=== PATIENT | male | born 1945 | race Two or more races ===

== ENCOUNTER 2024-03-15 09:21 | Inpatient (IN) | payer OTHER ==
[~2024-03-15] VITALS: Ht 190.5 cm; Wt 98.8 kg
[2024-03-15 09:45] VITALS: PULSE 115; O2SAT 96
[2024-03-15 10:07] LABS: Basophils # (auto) 0 10 ^3/uL (0-0.2); Basophils % (auto) 0.5 % (0.0-2.0); Eosinophils # (auto) 0.1 10 ^3/uL (0-0.8); Eosinophils % (auto) 0.7 % (0.0-7.0); Hematocrit 34.7 % (41.0-53.0); Hemoglobin 11.5 g/dL (13.5-17.5); Lymphocytes # (auto) 0.9 10 ^3/uL (0.4-5.4); Lymphocytes % (auto) 9.3 % (10.0-50.0); Mean Corpuscular Hemoglobin 33.1 pg (28.0-32.0); Mean Corpuscular Volume 100.3 fL (80.0-100.0); Monocytes # (auto) 0.6 10 ^3/uL (0-1.3); Monocytes % (auto) 6.7 % (0.0-12.0); Neutrophils # (auto) 7.7 10 ^3/uL (1.6-8.6); Neutrophils % (auto) 82.8 % (37.0-80.0); Red Blood Cells 3.46 10^6/uL (4.5-5.90); Red Cell Distribution Width 15.2 % (11.8-14.3); White Blood Cell 9.3 10^3/uL (4.4-10.8)
[2024-03-15 10:21] LABS: Chloride 109 mmol/L (98-107); Potassium 3.7 mmol/L (3.5-5.1); Sodium 140 mmol/L (136-145)
[2024-03-15 10:22] LABS: Anion Gap 8 (5-15); Calcium 9.8 mg/dL (8.7-10.4); Carbon Dioxide 23 mmol/L (20-30)
[2024-03-15 10:27] LABS: BUN/Creatinine Ratio 10.1 (10.0-20.0); Blood Urea Nitrogen 11 mg/dL (9-23); Glucose 127 mg/dL (74-106)
[2024-03-15] MEDS: ADENOSINE 6 MG/2 ML INJ IV ONE ×3 (12:57→13:02)
[2024-03-15] MEDS ORDERED: MORPHINE SULFATE INJ 2 MG/ml SYRG IV PRN (13:30)
[2024-03-15] MEDS ORDERED: MORPHINE SULFATE 4 MG/ML SYR/VIAL IV PRN (13:30)
[2024-03-15] MEDS ORDERED: NITROGLYCERIN 0.4 MG SL TAB SL PRN ×2 (13:30)
[2024-03-15] MEDS ORDERED: ONDANSETRON HCL 4 MG/2 ML VIAL IV PRN (13:30)
[2024-03-15] MEDS: AMIODARONE BOLUS KIT 100 ML IV ONE (13:30)
[2024-03-15] MEDS: AMIODARONE 450mg/250ml AE 250 ML IV SCH ×2 (13:45→21:00)
[2024-03-15 14:24] LABS: INR 1.08 (0.9-1.15); Prothrombin Time 11.4 sec (9.3-11.8)
[2024-03-15 14:30] VITALS: PULSE 111; RESP 18; O2SAT 94
[2024-03-15 14:43] LABS: Magnesium 1.8 mg/dL (1.6-2.6)
[2024-03-15 14:45] LABS: Phosphorus 2.9 mg/dL (2.4-5.1)
[2024-03-15] MEDS: ENOXAPARIN SOD 120 MG/0.8 ML SYRINGE SC SCH (18:12)
[2024-03-15 19:30] VITALS: PULSE 111; RESP 15; O2SAT 94
[2024-03-15] MEDS: ATORVASTATIN 20 MG TAB PO SCH (21:56)
[2024-03-15] MEDS: METOPROLOL TARTRATE 25 MG TAB PO SCH (21:57)
[2024-03-16 04:09] LABS: Basophils # (auto) 0 10 ^3/uL (0-0.2); Basophils % (auto) 0.4 % (0.0-2.0); Eosinophils # (auto) 0.1 10 ^3/uL (0-0.8); Eosinophils % (auto) 0.7 % (0.0-7.0); Hematocrit 34.8 % (41.0-53.0); Hemoglobin 11.7 g/dL (13.5-17.5); Lymphocytes # (auto) 1.8 10 ^3/uL (0.4-5.4); Lymphocytes % (auto) 18.2 % (10.0-50.0); Mean Corpuscular Hemoglobin 33.5 pg (28.0-32.0); Mean Corpuscular Hgb Conc. 33.7 g/dL (32.0-36.0); Mean Corpuscular Volume 99.2 fL (80.0-100.0); Monocytes % (auto) 10.3 % (0.0-12.0); Neutrophils # (auto) 6.8 10 ^3/uL (1.6-8.6); Neutrophils % (auto) 70.4 % (37.0-80.0); Red Blood Cells 3.51 10^6/uL (4.5-5.90); Red Cell Distribution Width 14.7 % (11.8-14.3); White Blood Cell 9.6 10^3/uL (4.4-10.8)
[2024-03-16 04:24] LABS: Alanine Aminotransferase 73 U/L (7-40); Albumin 4.2 g/dL (3.2-4.8); Alkaline Phosphatase 73 U/L (46-116); Anion Gap 9 (5-15); Aspartate Aminotransferase 34 U/L (13-40); BUN/Creatinine Ratio 11.1 (10.0-20.0); Blood Urea Nitrogen 12 mg/dL (9-23); Calcium 9.9 mg/dL (8.7-10.4); Carbon Dioxide 23 mmol/L (20-30); Chloride 106 mmol/L (98-107); Glucose 127 mg/dL (74-106); LDL Cholesterol 72 mg/dL (< 100); Potassium 3.6 mmol/L (3.5-5.1); Sodium 138 mmol/L (136-145); Triglycerides 85 mg/dL (< 150)
[2024-03-16 04:25] LABS: Bilirubin, Total 0.9 mg/dL (0.2-1.0); Cholesterol 130 mg/dL (< 200); HDL Cholesterol 48 mg/dL (40-59); Total Protein 7.2 g/dL (5.7-8.2)
[2024-03-16 07:20] VITALS: PULSE 110; RESP 16; O2SAT 97
[2024-03-16] MEDS: DOCUSATE SOD 100 MG CAP PO SCH (10:00)
[2024-03-16] MEDS: ASPirin 81 mg TAB PO SCH (10:13)
[2024-03-16] MEDS: DIPHENOXYLATE W/ATROPINE 2.5 MG TAB PO PRN (12:55)
[2024-03-16] MEDS: cefTRIAXone 1GM/50ML D5W 50 ML IV SCH (13:06)
[2024-03-16] MEDS: metroNIDAZOLE 500MG/100ML 100 ML IV SCH (15:02)
[2024-03-16 18:00] VITALS: BP 130/82; PULSE 109; RESP 16; TEMP 97.3; O2SAT 99
[2024-03-16 18:28] VITALS: PULSE 109; RESP 16; O2SAT 99
[2024-03-16] MEDS ORDERED: ALEN70TA74 PO (18:57)
[2024-03-16] MEDS ORDERED: CLOT-32 TOP (18:57)
[2024-03-16] MEDS ORDERED: SIMV40TA18 PO (18:57)
[2024-03-16] MEDS ORDERED: TAMS0.4C36 PO (18:57)
[2024-03-16] MEDS ORDERED: BENA40TA71 PO (18:57)
[2024-03-16] MEDS ORDERED: DICL1GEL73 TOP (18:57)
[2024-03-16] MEDS ORDERED: TRAM50TA2 PO (18:57)
[2024-03-16] MEDS ORDERED: GABA-1251 PO (18:57)
[2024-03-16] MEDS ORDERED: OXYB5TAB14 PO (18:57)
[2024-03-16] MEDS ORDERED: OMEP1CAP70 PO (18:57)
[2024-03-16] MEDS ORDERED: CARV6.2551 PO (18:57)
[2024-03-16 20:00] VITALS: PULSE 109
[2024-03-16 22:00] VITALS: BP 121/77; PULSE 109; RESP 18; TEMP 98.2; O2SAT 99
[2024-03-16] MEDS: SACUBITRIL-VALSARTAN 24mg/26mg TAB PO SCH (22:18)
[2024-03-17] VITALS (8 sets, daily range): BP systolic 111–153; BP diastolic 73–94; PULSE 74–113; RESP 18–94; TEMP 97.7–98.7; O2SAT 95–98
[2024-03-17 10:51] LABS: Chloride 105 mmol/L (98-107); Potassium 3.8 mmol/L (3.5-5.1); Sodium 139 mmol/L (136-145)
[2024-03-17 10:52] LABS: Anion Gap 8 (5-15); Basophils # (auto) 0 10 ^3/uL (0-0.2); Basophils % (auto) 0.5 % (0.0-2.0); Carbon Dioxide 26 mmol/L (20-30); Eosinophils # (auto) 0.1 10 ^3/uL (0-0.8); Eosinophils % (auto) 0.6 % (0.0-7.0); Hematocrit 34.5 % (41.0-53.0); Hemoglobin 11.8 g/dL (13.5-17.5); Lymphocytes # (auto) 1.2 10 ^3/uL (0.4-5.4); Lymphocytes % (auto) 13.5 % (10.0-50.0); Mean Corpuscular Hemoglobin 33.4 pg (28.0-32.0); Mean Corpuscular Hgb Conc. 34.2 g/dL (32.0-36.0); Mean Corpuscular Volume 97.7 fL (80.0-100.0); Monocytes # (auto) 0.6 10 ^3/uL (0-1.3); Monocytes % (auto) 6.9 % (0.0-12.0); Neutrophils # (auto) 7.2 10 ^3/uL (1.6-8.6); Neutrophils % (auto) 78.5 % (37.0-80.0); Red Blood Cells 3.53 10^6/uL (4.5-5.90); Red Cell Distribution Width 14.6 % (11.8-14.3); White Blood Cell 9.2 10^3/uL (4.4-10.8)
[2024-03-17 10:53] LABS: Calcium 9.9 mg/dL (8.7-10.4)
[2024-03-17 10:57] LABS: BUN/Creatinine Ratio 14.9 (10.0-20.0); Blood Urea Nitrogen 14 mg/dL (9-23); Glucose 104 mg/dL (74-106)
[2024-03-17 10:58] LABS: Magnesium 1.9 mg/dL (1.6-2.6)
[2024-03-17 11:39] LABS: Urine Bacteria None Seen /hpf (None Seen)
[2024-03-17 12:12] LABS: Urine Blood 3+ /uL (Negative); Urine Clarity Ex.Turbid (Clear); Urine Color Red (Yellow); Urine Protein, UAD 2+ (Negative); Urine Specific Gravity 1.019 (1.001-1.035); Urine Urobilinogen Normal (Negative); Urine WBC 191 /hpf (0 - 3); Urine pH 5.5 (5.0-9.0)
[2024-03-17] MEDS: METOPROLOL TARTRATE 25 MG TAB PO ONE (14:47)
[2024-03-17] MEDS: FUROSEMIDE 20 MG TAB PO SCH (14:48)
[2024-03-17] MEDS: METOPROLOL TARTRATE 50 MG TAB PO SCH (21:50)
[2024-03-18] VITALS (9 sets, daily range): BP systolic 106–124; BP diastolic 69–84; PULSE 109–115; RESP 16–20; TEMP 97.4–98.3; O2SAT 96–99
[2024-03-18 08:06] LABS: PSA Free 0.06 ng/mL; Prostate Specific Antigen 0.8 ng/mL (0.0-4.0)
[2024-03-18] MEDS: SPIRONOLACTONE 25 MG TAB PO SCH (08:58)
[2024-03-18] MEDS ORDERED: IVABRADINE 5 MG TAB PO SCH (11:15)
[2024-03-18] MEDS: AMIODARONE HCL 200 MG TAB PO SCH (13:18)
[2024-03-18 16:07] LABS: Chloride 105 mmol/L (98-107); Potassium 3.2 mmol/L (3.5-5.1); Sodium 140 mmol/L (136-145)
[2024-03-18 16:08] LABS: Anion Gap 7 (5-15); Carbon Dioxide 28 mmol/L (20-30)
[2024-03-18 16:09] LABS: Calcium 9.5 mg/dL (8.7-10.4)
[2024-03-18 16:13] LABS: Glucose 125 mg/dL (74-106)
[2024-03-18 16:14] LABS: Magnesium 1.6 mg/dL (1.6-2.6)
[2024-03-18 17:05] LABS: Blood Urea Nitrogen 16 mg/dL (9-23)
[2024-03-18] MEDS: POTASSIUM CHL 20 Meq TABLET PO ONE (18:21)
[2024-03-18] MEDS: MAGNESIUM SULFATE 1GM/100ML 100 ML IV SCH (18:21)
[2024-03-19] MEDS: ACETAMINOPHEN 325 MG TAB PO PRN (00:18)
[2024-03-19] MEDS: GABAPENTIN 100 MG CAP PO ONE (00:18)
[2024-03-19 01:00] VITALS: BP 107/78; PULSE 107; RESP 18; TEMP 97.7; O2SAT 100
[2024-03-19 03:54] LABS: Basophils # (auto) 0 10 ^3/uL (0-0.2); Basophils % (auto) 0.6 % (0.0-2.0); Eosinophils # (auto) 0.2 10 ^3/uL (0-0.8); Eosinophils % (auto) 2.4 % (0.0-7.0); Hematocrit 34.2 % (41.0-53.0); Hemoglobin 11.7 g/dL (13.5-17.5); Lymphocytes # (auto) 2.1 10 ^3/uL (0.4-5.4); Lymphocytes % (auto) 31.3 % (10.0-50.0); Mean Corpuscular Hemoglobin 33.4 pg (28.0-32.0); Mean Corpuscular Hgb Conc. 34.1 g/dL (32.0-36.0); Mean Corpuscular Volume 97.9 fL (80.0-100.0); Monocytes # (auto) 0.7 10 ^3/uL (0-1.3); Neutrophils # (auto) 3.7 10 ^3/uL (1.6-8.6); Neutrophils % (auto) 55.7 % (37.0-80.0); Nucleated Red Blood Cells % 0.1 %; Red Blood Cells 3.49 10^6/uL (4.5-5.90); Red Cell Distribution Width 14.6 % (11.8-14.3); White Blood Cell 6.7 10^3/uL (4.4-10.8)
[2024-03-19 04:02] LABS: Chloride 107 mmol/L (98-107); Potassium 3.8 mmol/L (3.5-5.1); Sodium 138 mmol/L (136-145)
[2024-03-19 04:03] LABS: Anion Gap 4 (5-15); Calcium 9.6 mg/dL (8.7-10.4); Carbon Dioxide 27 mmol/L (20-30)
[2024-03-19 04:08] LABS: BUN/Creatinine Ratio 14.4 (10.0-20.0); Blood Urea Nitrogen 14 mg/dL (9-23); Glucose 97 mg/dL (74-106)
[2024-03-19 05:00] VITALS: BP 123/87; PULSE 106; RESP 18; TEMP 97.6; O2SAT 98
[2024-03-19 08:05] VITALS: PULSE 110; RESP 18; O2SAT 92
[2024-03-19 09:00] VITALS: BP 126/83; PULSE 110; RESP 20; TEMP 97.6; O2SAT 99
[2024-03-19] MEDS: POTASSIUM CHL 20 Meq TABLET PO ONE (10:12)
[2024-03-19] MEDS: MAGNESIUM OXIDE 400 MG TAB PO SCH (10:13)
[2024-03-19] MEDS ORDERED: APIX2.5T PO (11:47)
[2024-03-19] MEDS ORDERED: SACU1TAB PO (11:47)
[2024-03-19] MEDS ORDERED: AMIO200T13 PO (11:47)
[2024-03-19] MEDS ORDERED: MET50T PO (11:47)
[2024-03-19] MEDS ORDERED: MAGN400T40 PO (11:47)
[2024-03-19] MEDS ORDERED: SPIR25TA PO (11:47)
[2024-03-19 13:29] VITALS: BP 126/83; PULSE 110; TEMP 36.4
[2024-03-19] MEDS: APIXABAN 2.5 MG TAB PO SCH (13:59)
== END 2024-03-19 14:30 | disposition home or self-care (01) | DRG 280 ==
LOC: EDBD 09:21 → ER 09:21 → TELE 13:38 → TELE-CENTR 03-16 17:53
PROVIDERS: ADMIT Nurse Practitioner Family; ATTEND Nurse Practitioner Acute Care
DX: I11.0 Hypertensive heart disease with heart failure (principal); I50.23 Acute on chronic systolic (congestive) heart failure; I21.A1 Myocardial infarction type 2; I47.10 Supraventricular tachycardia, unspecified; I48.92 Unspecified atrial flutter; I42.0 Dilated cardiomyopathy; E78.5 Hyperlipidemia, unspecified; I34.0 Nonrheumatic mitral (valve) insufficiency; E66.9 Obesity, unspecified; N40.0 Benign prostatic hyperplasia without lower urinary tract symptoms; I43 Cardiomyopathy in diseases classified elsewhere; G62.9 Polyneuropathy, unspecified; I48.0 Paroxysmal atrial fibrillation; Z85.038 Personal history of other malignant neoplasm of large intestine; Z68.27 Body mass index [BMI] 27.0-27.9, adult; Z79.01 Long term (current) use of anticoagulants
CPT/HCPCS: 36415; 71045; 74018; 80048; 80053; 80061; 81001; 82550; 82607; 83735; 83880; 84100; 84154; 84484; 85025; 85379; 85610; 87045; 87427; 87493; 93005; 93306; 93970; 96374; 97110; 97116; 97163; 97530; G0378; J0153; J3490

== ENCOUNTER → 2024-05-25 | Outpatient (CLI) | payer OTHER ==
[~2024-05-25] MED LIST: ALEN70TA74 PO; AMIO200T13 PO; APIX2.5T PO; CLOT-32 TOP; DICL1GEL73 TOP; GABA-1251 PO; MAGN400T40 PO; MET50T PO; OMEP1CAP70 PO; OXYB5TAB14 PO; SACU1TAB PO; SIMV40TA18 PO; SPIR25TA PO; TAMS0.4C39 PO; TRAM50TA2 PO
[2024-05-25 10:06] LABS: Basophils # (auto) 0 10 ^3/uL (0-0.2); Basophils % (auto) 0.5 % (0.0-2.0); Eosinophils # (auto) 0.2 10 ^3/uL (0-0.8); Eosinophils % (auto) 3.5 % (0.0-7.0); Hematocrit 36.2 % (41.0-53.0); Hemoglobin 12.1 g/dL (13.5-17.5); Lymphocytes # (auto) 1.3 10 ^3/uL (0.4-5.4); Mean Corpuscular Hemoglobin 32.8 pg (28.0-32.0); Mean Corpuscular Hgb Conc. 33.5 g/dL (32.0-36.0); Monocytes # (auto) 0.5 10 ^3/uL (0-1.3); Neutrophils # (auto) 3.7 10 ^3/uL (1.6-8.6); Nucleated Red Blood Cells % 0.1 %; Platelet Count (auto) 229 10^3/uL (140-450); Red Blood Cells 3.69 10^6/uL (4.5-5.90); Red Cell Distribution Width 13.9 % (11.8-14.3); White Blood Cell 5.8 10^3/uL (4.4-10.8)
[2024-05-25 10:07] LABS: Urine Bacteria FEW /hpf (None Seen); Urine Blood 2+ /uL (Negative); Urine Clarity Clear (Clear); Urine Color Light-Yellow (Yellow); Urine Protein, UAD 1+ (Negative); Urine Specific Gravity 1.018 (1.001-1.035); Urine Urobilinogen Normal (Negative); Urine WBC 110 /hpf (0 - 3); Urine pH 5.5 (5.0-9.0)
[2024-05-25 10:49] LABS: Prostate Specific Antigen 0.2 ng/mL (0.0-4.0)
[2024-05-25 10:51] LABS: Alanine Aminotransferase 23 U/L (7-40); Alkaline Phosphatase 61 U/L (46-116); Anion Gap 5 (5-15); Aspartate Aminotransferase 17 U/L (13-40); BUN/Creatinine Ratio 18.8 (10.0-20.0); Blood Urea Nitrogen 24 mg/dL (9-23); Calcium 10.3 mg/dL (8.7-10.4); Carbon Dioxide 29 mmol/L (20-31); Chloride 105 mmol/L (98-107); Glucose 101 mg/dL (74-106); LDL Cholesterol 67 mg/dL (< 100); Potassium 4.7 mmol/L (3.5-5.1); Sodium 139 mmol/L (136-145); Triglycerides 53 mg/dL (< 150)
[2024-05-25 10:52] LABS: Albumin 4.2 g/dL (3.2-4.8); Bilirubin, Total 0.4 mg/dL (0.2-1.0); Cholesterol 117 mg/dL (< 200); HDL Cholesterol 41 mg/dL (40-59); Total Protein 7.2 g/dL (5.7-8.2)
[2024-05-25 10:53] LABS: Free T4 (Free Thyroxine) 0.96 ng/dL (0.89-1.76)
[2024-05-25 10:54] LABS: Creatinine, Urine 99.89 mg/dL (30.0-125.0)
== END | disposition home or self-care (01) ==
LOC: LAB 09:32
PROVIDERS: ATTEND Internal Medicine
DX: Z00.01 Encounter for general adult medical examination with abnormal findings (principal); I13.0 Hypertensive heart and chronic kidney disease with heart failure and stage 1 through stage 4 chronic kidney disease, or unspecified chronic kidney disease; N18.9 Chronic kidney disease, unspecified; I50.9 Heart failure, unspecified; E78.5 Hyperlipidemia, unspecified; N40.1 Benign prostatic hyperplasia with lower urinary tract symptoms; C61 Malignant neoplasm of prostate
CPT/HCPCS: 36415; 80053; 80061; 81001; 82043; 82306; 82570; 82607; 83036; 84153; 84439; 84443; 85025

== ENCOUNTER → 2024-07-08 | Outpatient (CLI) | payer OTHER ==
[~2024-07-08] VITALS: Ht 190.5 cm; Wt 110.7 kg
[2024-07-08] MEDS: ADENOSINE 93 MG in GIVE UN-DILUTED 0 ML IV ONE (08:50)
--- NOTE | 2024-07-08 11:58 | DVHSR ---
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 Versus diaphragmatic attenuation. Severely reduced left ventricular systolic function 28%. 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 Time of rest injection: 0730 Time of rest imagin Pharmacologic Stress Pharmacologic stress test was performed by injecting Adenosine mg IV push followed by the intravenou s injection of 36.7 mCi of Tc-99m Sestamibi. Time of stress injection: 0853 Time of stress imagin Administration Route: IV Administration Site: Left AC Gated Stress SPECT was performed 60 minutes after stress injection. The images were gated to evaluate regional wall motion and calculate left ventricular ejection fracti on. Stress only was performed in the Supine position. Perfusion There is a large area of severely reduced uptake in the basal and mid segment of the inferior wall wh ich is seen on the stress images as well as the resting images. This area and is most consistent wit h myocardial scar. Nuclear Conclusion ECG Findings: negative for ischemia Clinical Findings: negative for ischemia Nuclear Findings: negative for ischemia Exercise Capacity: not assessed Left Ventricular Function: abnormal Risk Study: low Resting images shows large area of severely reduced uptake in the basal to mid segment of the inferio r wall which is seen both in stress and resting images likely in keeping with old myocardial infarcti on. Versus diaphragmatic attenuation. Severely reduced left ventricular systolic function 28%. Impression: Old inferior scar, negative stress for ischemia, severely reduced left ventricular systo lic function 28%
== END | disposition home or self-care (01) ==
LOC: XYW 06:49
PROVIDERS: ATTEND Student in an Organized Health Care Education/Training Program
DX: I48.0 Paroxysmal atrial fibrillation (principal)
CPT/HCPCS: 78452; 93017; A9500; J0153

== ENCOUNTER → 2024-07-10 | Outpatient (CLI) | payer OTHER ==
[2024-07-10 11:26] LABS: Chloride 107 mmol/L (98-107); Potassium 4.5 mmol/L (3.5-5.1); Sodium 139 mmol/L (136-145)
[2024-07-10 11:27] LABS: Anion Gap 4 (5-15); Calcium 10.6 mg/dL (8.7-10.4); Carbon Dioxide 28 mmol/L (20-31)
[2024-07-10 11:31] LABS: % Iron Saturation 26.8 % (20-55)
[2024-07-10 11:32] LABS: BUN/Creatinine Ratio 17.4 (10.0-20.0); Blood Urea Nitrogen 19 mg/dL (9-23); Glucose 99 mg/dL (74-106)
[2024-07-10 11:35] LABS: Ferritin 200.3 ng/mL (22-322)
[2024-07-10 11:58] LABS: Folate (Folic Acid) 41.25 ng/mL (>5.38)
== END | disposition home or self-care (01) ==
LOC: LAB 10:35
PROVIDERS: ATTEND Internal Medicine
DX: C61 Malignant neoplasm of prostate (principal); I13.0 Hypertensive heart and chronic kidney disease with heart failure and stage 1 through stage 4 chronic kidney disease, or unspecified chronic kidney disease; N18.2 Chronic kidney disease, stage 2 (mild); I50.9 Heart failure, unspecified; D63.1 Anemia in chronic kidney disease; E78.5 Hyperlipidemia, unspecified
CPT/HCPCS: 36415; 80048; 82728; 82746; 83540; 83550

== ENCOUNTER → 2024-07-28 | Outpatient (CLI) | payer OTHER ==
[2024-07-28 10:22] LABS: Basophils # (auto) 0 10 ^3/uL (0-0.2); Basophils % (auto) 0.8 % (0.0-2.0); Eosinophils # (auto) 0.3 10 ^3/uL (0-0.8); Eosinophils % (auto) 4.9 % (0.0-7.0); Hematocrit 34.7 % (41.0-53.0); Hemoglobin 11.7 g/dL (13.5-17.5); Lymphocytes # (auto) 1.3 10 ^3/uL (0.4-5.4); Lymphocytes % (auto) 25.1 % (10.0-50.0); Mean Corpuscular Hemoglobin 33.3 pg (28.0-32.0); Mean Corpuscular Hgb Conc. 33.6 g/dL (32.0-36.0); Mean Corpuscular Volume 99.1 fL (80.0-100.0); Monocytes # (auto) 0.5 10 ^3/uL (0-1.3); Monocytes % (auto) 9.4 % (0.0-12.0); Neutrophils # (auto) 3.2 10 ^3/uL (1.6-8.6); Neutrophils % (auto) 59.8 % (37.0-80.0); Nucleated Red Blood Cells % 0.1 %; Platelet Count (auto) 236 10^3/uL (140-450); White Blood Cell 5.3 10^3/uL (4.4-10.8)
[2024-07-28 10:41] LABS: % Iron Saturation 20.5 % (20-55); Alanine Aminotransferase 16 U/L (7-40); Albumin 4.1 g/dL (3.2-4.8); Alkaline Phosphatase 61 U/L (46-116); Anion Gap 5 (5-15); Aspartate Aminotransferase 17 U/L (13-40); BUN/Creatinine Ratio 21.4 (10.0-20.0); Bilirubin, Total 0.6 mg/dL (0.2-1.0); Blood Urea Nitrogen 25 mg/dL (9-23); Calcium 10.7 mg/dL (8.7-10.4); Carbon Dioxide 29 mmol/L (20-31); Chloride 105 mmol/L (98-107); Glucose 96 mg/dL (74-106); Potassium 4.5 mmol/L (3.5-5.1); Sodium 139 mmol/L (136-145); Total Protein 7.4 g/dL (5.7-8.2)
[2024-07-28 10:45] LABS: Carcinoembryonic Antigen 0.71 ng/mL (<=5.0)
[2024-07-28 10:46] LABS: Ferritin 206.9 ng/mL (22-322)
[2024-07-28 10:56] LABS: Wright Stain Ready for Review
== END | disposition home or self-care (01) ==
LOC: LAB 09:31
PROVIDERS: ATTEND Internal Medicine
DX: D64.9 Anemia, unspecified (principal)
CPT/HCPCS: 36415; 80053; 82270; 82378; 82728; 83540; 83550; 83615; 85025; 85045; 86880

== ENCOUNTER → 2024-07-31 | Outpatient (CLI) | payer OTHER ==
--- NOTE | 2024-08-03 10:48 | DVHSR ---
APPROVED REPORT Procedure The above named patient was injected with 26 mCi of Tc99m tagged red blood cells. Gated imaging was then performed in left anterior oblique projections. Impression Abnormal MUGA study. Calculated left ventricular ejection fraction is 46 %. Mildly decreased. left ventricular systolic function. Abnormal wall motion. Mildly reduced left ventricular systolic function at 46% by MUGA scan.
== END | disposition home or self-care (01) ==
LOC: XYW 09:12
PROVIDERS: ATTEND Student in an Organized Health Care Education/Training Program
DX: I50.9 Heart failure, unspecified (principal)
CPT/HCPCS: 78472; A9560

== ENCOUNTER → 2024-10-19 | Outpatient (CLI) | payer OTHER ==
[2024-10-19 10:20] LABS: Basophils # (auto) 0 10 ^3/uL (0-0.2); Basophils % (auto) 0.4 % (0.0-2.0); Eosinophils # (auto) 0.2 10 ^3/uL (0-0.8); Hematocrit 35.1 % (41.0-53.0); Hemoglobin 11.8 g/dL (13.5-17.5); Lymphocytes % (auto) 15.3 % (10.0-50.0); Mean Corpuscular Hemoglobin 32.6 pg (28.0-32.0); Mean Corpuscular Hgb Conc. 33.6 g/dL (32.0-36.0); Monocytes # (auto) 0.8 10 ^3/uL (0-1.3); Monocytes % (auto) 12.2 % (0.0-12.0); Neutrophils # (auto) 4.4 10 ^3/uL (1.6-8.6); Neutrophils % (auto) 69.1 % (37.0-80.0); Platelet Count (auto) 247 10^3/uL (140-450); Red Blood Cells 3.62 10^6/uL (4.5-5.90); Red Cell Distribution Width 13.7 % (11.8-14.3); White Blood Cell 6.4 10^3/uL (4.4-10.8)
[2024-10-19 10:44] LABS: Urine Bacteria MANY /hpf (None Seen); Urine Blood 2+ /uL (Negative); Urine Clarity Turbid (Clear); Urine Color Light-Yellow (Yellow); Urine Mucus FEW (None Seen); Urine Protein, UAD Negative (Negative); Urine Specific Gravity 1.019 (1.001-1.035); Urine Squamous Epithelial Cell FEW /hpf (<5); Urine Urobilinogen Normal (Negative); Urine WBC 97 /HPF (0-3); Urine pH 5.5 (5.0-9.0)
[2024-10-19 11:02] LABS: Alanine Aminotransferase 22 U/L (7-40); Alkaline Phosphatase 63 U/L (46-116); Carbon Dioxide 28 mmol/L (20-31); Chloride 101 mmol/L (98-107)
[2024-10-19 11:03] LABS: Anion Gap 7 (5-15); Potassium 4.5 mmol/L (3.5-5.1); Sodium 136 mmol/L (136-145)
[2024-10-19 11:04] LABS: Albumin 4.3 g/dL (3.2-4.8); BUN/Creatinine Ratio 19.5 (10.0-20.0); LDL Cholesterol 73 mg/dL (< 100); Total Protein 7.5 g/dL (5.7-8.2); Triglycerides 77 mg/dL (< 150)
[2024-10-19 11:05] LABS: Aspartate Aminotransferase 23 U/L (13-40); Cholesterol 131 mg/dL (< 200)
[2024-10-19 11:06] LABS: Bilirubin, Total 0.5 mg/dL (0.2-1.0); HDL Cholesterol 44 mg/dL (40-59)
[2024-10-19 11:09] LABS: Creatinine, Urine 102.49 mg/dL (30.0-125.0)
[2024-10-19 11:11] LABS: Blood Urea Nitrogen 24 mg/dL (9-23); Calcium 10.4 mg/dL (8.7-10.4); Glucose 107 mg/dL (74-106)
== END | disposition home or self-care (01) ==
LOC: LAB 09:45
PROVIDERS: ATTEND Internal Medicine
DX: C61 Malignant neoplasm of prostate (principal); I13.0 Hypertensive heart and chronic kidney disease with heart failure and stage 1 through stage 4 chronic kidney disease, or unspecified chronic kidney disease; N18.31 Chronic kidney disease, stage 3a; I50.9 Heart failure, unspecified; I48.0 Paroxysmal atrial fibrillation; E78.5 Hyperlipidemia, unspecified; R80.8 Other proteinuria; Z00.01 Encounter for general adult medical examination with abnormal findings
CPT/HCPCS: 36415; 80053; 80061; 81001; 82043; 82570; 83036; 84153; 84439; 84443; 85025

== ENCOUNTER → 2024-12-19 | Day surgery (SDC) | payer OTHER ==
[2024-12-17 09:32] LABS: Basophils # (auto) 0 10 ^3/uL (0-0.2); Basophils % (auto) 0.6 % (0.0-2.0); Eosinophils # (auto) 0.1 10 ^3/uL (0-0.8); Eosinophils % (auto) 2.2 % (0.0-7.0); Hematocrit 34.3 % (41.0-53.0); Hemoglobin 11.5 g/dL (13.5-17.5); Lymphocytes # (auto) 1.4 10 ^3/uL (0.4-5.4); Lymphocytes % (auto) 23.9 % (10.0-50.0); Mean Corpuscular Hemoglobin 32.7 pg (28.0-32.0); Mean Corpuscular Hgb Conc. 33.5 g/dL (32.0-36.0); Mean Corpuscular Volume 97.5 fL (80.0-100.0); Monocytes # (auto) 0.6 10 ^3/uL (0-1.3); Neutrophils # (auto) 3.8 10 ^3/uL (1.6-8.6); Neutrophils % (auto) 63.3 % (37.0-80.0); Platelet Count (auto) 253 10^3/uL (140-450); Red Blood Cells 3.52 10^6/uL (4.5-5.90); Red Cell Distribution Width 13.7 % (11.8-14.3)
[2024-12-17 09:53] LABS: INR 1.02 (0.9-1.15); Partial Thromboplastin Time 28.3 SEC (24.5-34.5); Prothrombin Time 10.8 sec (9.3-11.8)
[2024-12-17 10:00] LABS: Alanine Aminotransferase 24 U/L (7-40); Albumin 4.3 g/dL (3.2-4.8); Alkaline Phosphatase 64 U/L (46-116); Anion Gap 4 (5-15); Aspartate Aminotransferase 21 U/L (13-40); BUN/Creatinine Ratio 26.3 (10.0-20.0); Bilirubin, Total 0.5 mg/dL (0.2-1.0); Blood Urea Nitrogen 30 mg/dL (9-23); Calcium 10.4 mg/dL (8.7-10.4); Carbon Dioxide 29 mmol/L (20-31); Chloride 106 mmol/L (98-107); Glucose 103 mg/dL (74-106); Potassium 4.9 mmol/L (3.5-5.1); Sodium 139 mmol/L (136-145); Total Protein 7.4 g/dL (5.7-8.2)
[~2024-12-19] VITALS: Ht 190.5 cm; Wt 112.5 kg
[~2024-12-19] MED LIST changes: -AMIO200T13 PO; +CHOL62.52 PO; +CYAN-37 PO; +GABA-1250 PO; +MIDAZOLAM HCL 2MG/2ML 2ml VIAL (1mg/ml) ONE
[2024-12-19 09:15] VITALS: TEMP 98.4
[2024-12-19] MEDS: fentaNYL CITRATE 100 MCG/2 ML VL ONE (10:52)
[2024-12-19] MEDS: MIDAZOLAM HCL 2MG/2ML 2ml VIAL (1mg/ml) ONE (10:52)
[2024-12-19 11:23] VITALS: PULSE 60; RESP 14; O2SAT 97
--- NOTE | 2024-12-19 11:23 | DVHNC2 ---
Procedure - PROCEDURE DATE: DECEMBER 19, 2024 PROCEDURE PERFORMED BY: Kevin Paris MD REFERRING PROVIDER: Dr Mitchell PROCEDURE PERFORMED: 1. COLONOSCOPY WITH MODERATE SEDATION 2. COLONOSCOPY WITH COLD BIOPSY POLYPECTOMY 3. COLONOSCOPY WITH COLD SNARE POLYPECTOMY PRE-PROCEDURE DIAGNOSIS: 1. COLON CANCER SURVEILLANCE POSTPROCEDURE DIAGNOSIS: 1.5 COLON POLYPS IN TRANSVERSE COLON AND ASCENDING COLON 2. 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 MEDICATIONS USED: 4mg of Versed IV and 75mcg of fentanyl IV were given in inc remental doses DETAILS OF THE PROCEDURE: Informed consent was obtained after risks, benefits, and alternatives, were discussed at length with the patient. The patient gave consent to the procedure as well as some medication used for sedation. The patient was placed in the left lateral decubitus position, and a digital rectal exam was performed. The digital rectal exam showed internal hemorrhoids An Olympus variable torsion adult colonoscope was inserted into the rectum and i ndependence to the cecum. The cecum was identified by the ileocecal valve appendiceal orifice. The scope was then withdrawn. [place] bowel prep score of 5 was noted. There was stool throughout the colon and small lesions could have been missed. The patient had four ascending colon polyps were completely removed with cold biopsy forceps and snare polypectomy. They measured between 2 and 5 mm. there was another transverse colon polyp removed with biopsy forceps. In the rectum the patient had narrowing and I was not able to retroflex. Just proximal to the dentate line there was a lesion not sure if it was hemorrhoids or a polyp or other. It was friable and was oozing just with irritation of the scope. No biopsies were taken. The scope was then withdrawn. In the endoscope was inserted just to evaluate this area. Pictures were taken. No biopsies were taken. The scope was then withdrawn and the procedure completed. The patient tolerated the procedure well. START TIME: 1055 CECUM TIME: 1103 END TIME: 1118 IMPRESSION: 1. Five colon polyps removed in the ascending colon and transverse colon 2. Friable lesion just proximal to the dentate line. Not sure if it is related to hemorrhoids or if it is a polypoid lesion or other RECOMMENDATION: 1. We will review the patient's history for better understanding of what the rectal lesion could possibly be 2. Patient will need a surgical referral for evaluation 3. Follow up with pathology 4. We will discuss findings with the patient's 5. Patient may need repeat colonoscopy is indicated 6. Restart Eliquis in 3 days I WOULD LIKE TO THANK DR MITCHELL FOR THIS REFERRAL KEVIN PARIS MD December 19, 2024 11:23
[2024-12-19 11:45] VITALS: BP 120/63; PULSE 58; RESP 12; O2SAT 97
== END | disposition home or self-care (01) ==
LOC: GI 09:00
PROVIDERS: ATTEND Specialist
DX: Z12.11 Encounter for screening for malignant neoplasm of colon (principal); D12.3 Benign neoplasm of transverse colon; D12.2 Benign neoplasm of ascending colon; K64.8 Other hemorrhoids; K21.9 Gastro-esophageal reflux disease without esophagitis; E78.00 Pure hypercholesterolemia, unspecified; I11.0 Hypertensive heart disease with heart failure; I50.9 Heart failure, unspecified; G62.9 Polyneuropathy, unspecified; Z98.890 Other specified postprocedural states; Z79.899 Other long term (current) drug therapy; Z87.891 Personal history of nicotine dependence; Z93.3 Colostomy status; Z85.46 Personal history of malignant neoplasm of prostate; Z83.3 Family history of diabetes mellitus
CPT/HCPCS: 36415; 45380; 45385; 80053; 85025; 85610; 85730; 88305; J2250; J3010; 99152; 99153

== ENCOUNTER 2025-01-19 13:50 | Emergency (ER) | payer OTHER ==
[~2025-01-19] VITALS: Ht 190.5 cm; Wt 106.0 kg
[~2025-01-19 13:50] MED LIST changes: -MIDAZOLAM HCL 2MG/2ML 2ml VIAL (1mg/ml) ONE
--- NOTE | 2025-01-19 14:04 | ECG ---
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
--- NOTE | 2025-01-19 14:20 | ED.PDOC ---
History of Present Illness HPI Comments 80 year old male presents to the ED with a chief complaint of dizziness onset 1 week. Patient states has been experiencing dizziness that worsens with walking as well as palpitations. Patient is a poor historian, states he is on Eliquis but is unsure as to why. PMHx HLD, HTN, colon cancer. Denies chest pain, shortness of breath, headache, nausea, vomiting, diarrhea, abdominal pain, dysuria, hematuria, hematemesis, fever, chills. No other symptoms or modifying factors present at this time. Chief Complaint: Dizziness Time Seen by MD: 14:00 Reviewed Notes: Medications, Allergies Allergies: Coded Allergies: NO KNOWN ALLERGIES (Unverified , 03/15/24) Home Meds Active Scripts Magnesium Oxide (MAGNESIUM OXIDE) 400 Mg Tab, 1 TAB PO DAILY for 30 Days, #30 TAB 3 Refills Prov:GABRIELA BEY NP 03/19/24 Spironolactone (Aldactone) 25 Mg Tab, 25 MG PO DAILY for 30 Days, #30 TAB 3 Refills Prov:GABRIELA BEY NP 03/19/24 Sacubitril-Valsartan (Entresto 24-26 mg) 1 Tab Tab, 0.5 TAB PO BID for 30 Days, #30 TAB 3 Refills Prov:GABRIELA BEY NP 03/19/24 Metoprolol Tartrate (LOPRESSOR TABLET) 50 Mg Tb, 50 MG PO Q12HR for 30 Days, #60 TAB 3 Refills Prov:GABRIELA BEY PRODUCTION SUPPORT ANALYST 03/19/24 Apixaban Base (ELIQUIS) 2.5 Mg Tab, 2.5 MG PO BID for 30 Days, #60 TAB 3 Refills Prov:GABRIELA BEY PRODUCTION SUPPORT ANALYST 03/19/24 Reported Medications Gabapentin (Gabapentin) 300 Mg Cap, 400 MG PO DAILY, CAP 12/17/24 Cholecalciferol (D3) 62.5 Mcg Chw, 125 MCG PO DAILY, TAB.CHEW 12/17/24 Cyanocobalamin (B12) 1,000 Mcg/15 Ml Liq, 2500 MCG PO DAILY, LIQ 12/17/24 Clotrimazole (Lotrimin Af) 1 % Cre, 1 APPLIC TOP BID, #24 GRAMS 1 Refill 03/16/24 Diclofenac Sodium (Topical) (Diclofenac Sodium) 1 % Gel, 1 APPLIC TOP BID 03/16/24 Gabapentin (Gabapentin) 400 Mg Cap, 1 TAB PO BID 03/16/24 Tamsulosin Hcl (Tamsulosin Hcl) 0.4 Mg Cap, 1 CAP PO DAILY 03/16/24 Oxybutynin Chloride (Oxybutynin Chloride) 5 Mg Tab, 1 TAB PO BID 03/16/24 Omeprazole (Omeprazole Dr) 20 Mg Cap, 1 CAP PO BID 03/16/24 Simvastatin (Simvastatin) 40 Mg Tab, 1 TAB PO DAILY 03/16/24 Alendronate Sodium (Alendronate Sodium) 70 Mg Tab, 1 TAB PO QWEEKLY 03/16/24 Tramadol Hcl (Tramadol Hcl) 50 Mg Tab, 1 TAB PO Q6HPRN PRN for pain 03/16/24 Information Source: Patient Mode of Arrival: Wheelchair Severity: Moderate Timing: Weeks Duration: Since onset Prehospital treatment: None Past Medical History PAST MEDICAL HISTORY: Cancer, High Lipids, HTN Surgical History: Denies all surgeries Family History Family History: Reviewed,noncontributory to illness, No family hx of Cancer, No family hx of DM, No family hx of Heart babak, No family hx of HTN, No family hx ofKidney babak, No family hx of Liver babak, No family hx of Lung babak, No family hx of Stroke Social History Smoker: Non-Smoker Alcohol: Denies ETOH Use Drugs: Denies Drug Use Lives In: Home Constitutional: denies: chills, diaphoresis, fatigue, fever, malaise, sweats, weakness, others EENTM: denies: blurred vision, double vision, ear bleeding, ear discharge, ear drainage, ear pain, ear ringing, eye pain, eye redness, hearing loss, mouth pain, mouth swelling, nasal discharge, nose bleeding, nose congestion, nose pain, photophobia, tearing, throat pain, throat swelling, voice changes, others Respiratory: denies: cough, hemoptysis, orthopnea, SOB at rest, shortness of breath, SOB with excertion, stridor, wheezing, others Cardiovascular: reports: palpitations; denies: chest pain, dizzy spells, diap horesis, Dyspnea on exertion, edema, irregular heart beat, left arm pain, lightheadedness, PND, syncope, others Gastrointestinal: denies: abdomen distended, abdominal pain, blood streaked bowels, constipated, diarrhea, dysphagia, difficulty swallowing, hematemesis, melena, nausea, poor appetite, poor fluid intake, rectal bleeding, rectal pain, vomiting, others Genitourinary: denies: burning, dysuria, flank pain, frequency, hematuria, incontinence, penile discharge, penile sore, pain, testicle pain, testicle swelling, urgency, others Neurological: reports: dizziness; denies: fainting, headache, left sided numbness, left sided weakness, numbness, paresthesia, pre-existing deficit, right sided numbness, right sided weakness, seizure, speech problems, tingling, tremors, weakness, others Musculoskeletal: denies: back pain, gout, joint pain, joint swelling, muscle pain, muscle stiffness, neck pain, others Integumetry: denies: bruises, change in color, change in hair/nails, dryness, laceration, lesions, lumps, rash, wounds, others Allergic/Immunocompromised: denies: Difficulty Healing, Frequent Infections, Hives, Itching, others Hematologic/Lymphatic: denies: anemia, blood clots, easy bleeding, easy bruising, swollen glands, others Endocrine: denies: excessive hunger, excessive sweating, excessive thirst, excessive urination, flushing, intolerance to cold, intolerance to heat, unexplained weight gain, unexplained weight loss, others Psychiatric: denies: anxiety, bipolar disorder, depression, hopeless, panic disorder, schizophrenia, sleepless, suicidal, others All Other Systems: Reviewed and Negative Physical Exam General Appearance: Moderate Distress, Normal HEENT: Normal ENT Inspection, Pharynx Normal, TMs Normal Neck: Full Range of Motion, Non-Tender, Normal, Normal Inspection Respiratory: Chest Non-Tender, Lungs Clear, No Accessory Muscle Use, No Respiratory Distress, Normal Breath Sounds Cardiovascular: No Edema, No JVD, No Murmur, No Gallop, Normal Peripheral Pulses, Regular Rate/Rhythm Breast Exam: Deferred Gastrointestinal: No Organomegaly, Non Tender, No Pulsatile Mass, Normal Bowel Sounds, Soft Genitalia: Deferred Pelvic: Deferred Rectal: Deferred Extremities: No calf tenderness, Normal capillary refill, Normal inspection, Normal range of motion, Non-tender, No pedal edema Musculoskeletal : Apperance: Normal Neurologic: Alert, clinical exercise physiologist II-XII nml as Tested, Normal Mood Cerebellar Function: NOT DONE Reflexes: NOT DONE Skin: Dry, Normal Color, Warm Peripheral Pulses: 3+ Radial (R), 3+ Radial (L) Lymphatic: No Adenopathy Was a procedure done? Was a procedure done?: No EKG EKG : Pulse Rate (adult): 102 Cardiac Rhythm: NSR Differential Dx Considerations may include: Autonomic disorder X-Ray, Labs, Meds, VS Vital Signs Date Time Temp Pulse Resp B/P (MAP) Pulse Ox O2 Delivery O2 Flow Rate FiO2 01/19/25 14:20 102 01/19/25 14:02 98.3 102 16 101/70 (80) 95 98.3 01/19/25 13:57 103 Lab Test 01/19/25 14:14 01/19/25 13:55 Range/Units Troponin I High Sensitivity Pending POC Glucose 103 70-106 mg/dl Patient alert. Complaining of dizziness. He is anxious. No leg swelling. No shortness a breath. Saturation within normal limits. Respiratory rate within normal limits. On clinical examination heart rate within normal limits. Does not meet any criteria. No calf tenderness. He is on blood thinner. EKG reviewed does not show any acute changes. Continue to monitor. Time of 1ST Reevaluation: 14:30 Reevaluation 1ST: Unchanged Patient Education/Counseling: Diagnosis, Treatment, Prognosis Family Education/Counseling: No Family Present Departure 1 Departure Time of Disposition: 14:31 Impression: Primary Impression: Atrial fibrillation and flutter Additional Impression: Autonomic disorder Disposition: 01 HOME / SELF CARE / HOMELESS Condition: Good Discharged With: Self Critical Care Note Critical Care Time?: No Stability Stability form required: No Heart Score Heart Score: Heart Score Response (Comments) Value History Slightly Suspicious 0 EKG Normal 0 Age >65 2 Risk Factors >3 or Hx ASHD 2 Troponin Normal limit 0 Total 4 I personally scribed for GILSON DICKSON MD ([email or web address]) on 01/19/25 at 14:20. Electronically submitted by Ana Andrade ([email or web address]). GILSON DICKSON MD Jan 19, 2025 14:20
--- NOTE | 2025-01-19 15:07 | DVH ---
Procedure: CT HEAD WITHOUT CONTRAST Study Date and Requested Time: 01/19/2025 02:35 PM History: dizzy Comparison: None Dose: CTDI: 70.01 mGy DLP: 1799.39 mGycm Technique: Multiplanar images obtained through the brain without intravenous contrast. Findings: [id number] diffuse brain atrophy. Mild chronic small vessel ischemic changes. No hemorrhages, masses, mass effect, midline shift, herniation or cytotoxic edema following a large v ascular territory. No intra-axial or extra-axial fluid collections. No evidence of hydrocephalus. The basal cisterns are patent. Nonspecific partially empty sella. The cerebellar tonsils are in normal position. The cerebellum is u nremarkable. Left lens replacement. Otherwise, orbits and globes are unremarkable. The paranasal sinuses and mast oids are clear. There are no worrisome calvarial lesions. Moderate to severe degenerative changes of the upper cervical spine. Impression: No evidence of acute intracranial abnormality.
[2025-01-19 16:09] VITALS: BP 102/69; TEMP 97.8
[2025-01-19 16:35] VITALS: PULSE 100; RESP 16; O2SAT 99
== END 2025-01-19 16:40 | disposition home or self-care (01) ==
LOC: ER 13:55
DX: I48.91 Unspecified atrial fibrillation (principal); I48.92 Unspecified atrial flutter; G90.9 Disorder of the autonomic nervous system, unspecified; E78.5 Hyperlipidemia, unspecified; I10 Essential (primary) hypertension; Z79.899 Other long term (current) drug therapy
CPT/HCPCS: 36415; 70450; 82947; 82962; 84484; 93005

== ENCOUNTER 2025-05-10 09:20 | Outpatient (CLI) | payer OTHER ==
[2025-05-10 10:19] LABS: Hematocrit 34.3 % (41.0-53.0); Hemoglobin 11.6 g/dL (13.5-17.5); Mean Corpuscular Hemoglobin 32.7 pg (28.0-32.0); Mean Corpuscular Volume 96.5 fL (80.0-100.0); Nucleated Red Blood Cells % 0.0 %
[2025-05-10 10:45] LABS: Alanine Aminotransferase 14 U/L (7-40); Albumin 4.2 g/dL (3.2-4.8); Alkaline Phosphatase 68 U/L (46-116); Anion Gap 8 (5-15); BUN/Creatinine Ratio 14.3 (10.0-20.0); Blood Urea Nitrogen 16 mg/dL (9-23); Calcium 9.9 mg/dL (8.7-10.4); Carbon Dioxide 29 mmol/L (20-31); Chloride 103 mmol/L (98-107); Glucose 93 mg/dL (74-106); Potassium 4.0 mmol/L (3.5-5.1); Sodium 140 mmol/L (136-145); Total Protein 7.7 g/dL (5.7-8.2)
[2025-05-10 10:47] LABS: Bilirubin, Total 0.6 mg/dL (0.2-1.0)
[2025-05-10 10:48] LABS: Protein, Urine 22.5 mg/dL (1-14)
[2025-05-10 12:21] LABS: Urine Protein, UAD Negative (Negative)
== END 2025-05-10 17:00 | disposition home or self-care (01) ==
LOC: LAB 09:20
PROVIDERS: ATTEND Internal Medicine
DX: E11.22 Type 2 diabetes mellitus with diabetic chronic kidney disease (principal); N18.30 Chronic kidney disease, stage 3 unspecified; E11.21 Type 2 diabetes mellitus with diabetic nephropathy; E55.9 Vitamin D deficiency, unspecified; E21.3 Hyperparathyroidism, unspecified; N39.0 Urinary tract infection, site not specified; D63.1 Anemia in chronic kidney disease; M10.9 Gout, unspecified; R80.9 Proteinuria, unspecified
CPT/HCPCS: 36415; 80053; 81003; 82306; 82570; 83036; 83970; 84156; 85025

== ENCOUNTER 2025-05-19 09:54 | Outpatient (CLI) | payer OTHER | END 2025-05-19 17:00 | disposition home or self-care (01) | LOC: LAB 09:54 | PROVIDERS: ATTEND Urology | DX: R97.20 Elevated prostate specific antigen [PSA] (principal) | CPT/HCPCS: 84153 ==

== ENCOUNTER 2025-05-28 09:48 | Outpatient (CLI) | payer OTHER ==
[2025-05-28 10:35] LABS: Hematocrit 35.4 % (41.0-53.0); Hemoglobin 11.9 g/dL (13.5-17.5); Mean Corpuscular Hemoglobin 32.4 pg (28.0-32.0); Mean Corpuscular Volume 96.5 fL (80.0-100.0); Nucleated Red Blood Cells % 0.0 %
[2025-05-28 10:53] LABS: Alanine Aminotransferase 21 U/L (7-40); Albumin 4.1 g/dL (3.2-4.8); Alkaline Phosphatase 66 U/L (46-116); Anion Gap 9 (5-15); BUN/Creatinine Ratio 22.4 (10.0-20.0); Calcium 9.9 mg/dL (8.7-10.4); Carbon Dioxide 28 mmol/L (20-31); Chloride 103 mmol/L (98-107); Glucose 97 mg/dL (74-106); Potassium 4.3 mmol/L (3.5-5.1); Sodium 140 mmol/L (136-145); Total Protein 7.5 g/dL (5.7-8.2)
[2025-05-28 10:54] LABS: Bilirubin, Total 0.6 mg/dL (0.2-1.0)
[2025-05-28 10:59] LABS: Blood Urea Nitrogen 26 mg/dL (9-23)
== END 2025-06-02 17:00 | disposition home or self-care (01) ==
LOC: LAB 09:48
PROVIDERS: ATTEND Student in an Organized Health Care Education/Training Program
DX: R73.03 Prediabetes (principal); Z86.79 Personal history of other diseases of the circulatory system
CPT/HCPCS: 36415; 80053; 83036; 83880; 84443; 85025

== ENCOUNTER 2025-06-10 16:30 | Inpatient (IN) | payer OTHER ==
[~2025-06-10] VITALS: Ht 190.5 cm; Wt 104.2 kg
--- NOTE | 2025-06-10 16:48 | ED.PDOC ---
HPI Comments HPI: Past Medical history: High Lipids, HTN, AFIB, Cancer Past Surgical history: Denies Any Medications: Eliquis, Metoprol, Entresto, Magnesium Citrate Social History: Denies smoking, ETOH, and drug use. Allergies: NKDA HPI: Poor Historian. 80-year-old male brought in from outpatient testing for some dizziness and weakness. Patient with found with a heart rate in the 220s. Patient does not know that his heart rate is fast. He is essentially asymptomatic accepts of dizziness and weakness. Onset of symptoms. Patient took all his medications this morning including Eliquis. REVIEW OF SYSTEMS: CONSTITUTIONAL: Denies acute: fever, diaphoresis, chills, HEAD: Denies acute: headache, photophobia Eyes: Denies acute: Double vision, vision loss, eye pain, eye discharge. EARS: Denies acute: tinnitus, hearing loss, ear discharge, ear pain, THROAT: Denies acute: sore throat, swelling, difficulty swallowing , pain with swallowing, change in voice. NECK: Denies acute: neck pain, neck swelling, stiff neck. HEART: Denies acute : chest pain, palpitations, LUNGS: Denies acute: SOB, wheezing, cough, hemoptysis ABDOMEN: Denies acute: abdominal pain, Nausea, Vomiting, diarrhea, melena , hematemesis, hematochezia SKIN: Denies acute: rash, redness, lesions, itchiness. EXTREMITIES: Denies acute: calf pain, numbness, tingling, weakness, denies pain in extremity. Denies acute: Low back pain. Neuro: Denies acute: focal neurological deficit, motor or sensory focal neurological deficit, tremors, seizure like activity, confusion, change in mental status, loss of bowel or bladder function, cauda equina like symptoms. : Denies acute: dysuria, hematuria, flank pain, increase in urinary frequency. PSYCH: Denies acute: hallucination, suicidal ideation, homicidal ideation. PHYSICAL EXAM: General: ----no----acute distress, awake and alert. Head: normocephalic, atraumatic. Neck: supple, trachea is midline, no swelling. Throat: Normal phonation. Eyes:, no erythema, no purulent discharge, no proptosis, no icterus. Heart: regular tachycardic, no significant murmur appreciated. Lungs: no apparent respiratory distress, Able to speak in full sentences. No wheezing, no rhonchi, no crackles. No stridors Clear to auscultation bilaterally. Abdomen: non tender to palpation, non distended, soft, no guarding, no rebound, + bowel sounds. Obese Neuro: Awake, Alert, oriented to name, self, situation, follows commands GCS=15. Speech is normal. Skin: no petechia, no purpura, no cyanosis, slightly-pale, not jaundice. Lower extremities: --trace bilateral - Pitting edema no deformity, no focal swelling, no calf TTP. Makes eye contact. moves all four extremities. Face: no apparent facial droop. ED COURSE: DISCLAIMER: This medical document was created using an electronic medical record system with voice recognition software and computerized dictation system. Although this document has been carefully reviewed, there might still be some phonetic and typographical errors. Occasional wrong-word or "sound-alike" substitutions may have occurred due to the inherent limitations of voice recognition software. These areas are purely typographical due to imperfections of the software programs and do not reflect any compromise in the patient's medical care. Please read the chart carefully and recognize, using context, where these substitutions have occurred. Time Seen by MD: 16:45 Reviewed Notes: Nurses Notes, Medications, Allergies Allergies: Coded Allergies: NO KNOWN ALLERGIES (Unverified , 03/15/24) Home Meds Active Scripts Magnesium Oxide (MAGNESIUM OXIDE) 400 Mg Tab, 1 TAB PO DAILY for 30 Days, #30 TAB 3 Refills Prov:GABRIELA BEY BRIM POUNCING MACHINE OPERATOR 03/19/24 Spironolactone (Aldactone) 25 Mg Tab, 25 MG PO DAILY for 30 Days, #30 TAB 3 Refills Prov:GABRIELA BEY BRIM POUNCING MACHINE OPERATOR 03/19/24 Sacubitril-Valsartan (Entresto 24-26 mg) 1 Tab Tab, 0.5 TAB PO BID for 30 Days, #30 TAB 3 Refills Prov:GABRIELA BEY BRIM POUNCING MACHINE OPERATOR 03/19/24 Metoprolol Tartrate (LOPRESSOR TABLET) 50 Mg Tb, 50 MG PO Q12HR for 30 Days, #60 TAB 3 Refills Prov:DAPHNE BEYPH BRIM POUNCING MACHINE OPERATOR 03/19/24 Apixaban Base (ELIQUIS) 2.5 Mg Tab, 2.5 MG PO BID for 30 Days, #60 TAB 3 Refills Prov:GABRIELA BEY BRIM POUNCING MACHINE OPERATOR 03/19/24 Reported Medications Gabapentin (Gabapentin) 300 Mg Cap, 400 MG PO DAILY, CAP 12/17/24 Cholecalciferol (D3) 62.5 Mcg Chw, 125 MCG PO DAILY, TAB.CHEW 12/17/24 Cyanocobalamin (B12) 1,000 Mcg/15 Ml Liq, 2500 MCG PO DAILY, LIQ 12/17/24 Clotrimazole (Lotrimin Af) 1 % Cre, 1 APPLIC TOP BID, #24 GRAMS 1 Refill 03/16/24 Diclofenac Sodium (Topical) (Diclofenac Sodium) 1 % Gel, 1 APPLIC TOP BID 03/16/24 Gabapentin (Gabapentin) 400 Mg Cap, 1 TAB PO BID 03/16/24 Tamsulosin Hcl (Tamsulosin Hcl) 0.4 Mg Cap, 1 CAP PO DAILY 03/16/24 Oxybutynin Chloride (Oxybutynin Chloride) 5 Mg Tab, 1 TAB PO BID 03/16/24 Omeprazole (Omeprazole Dr) 20 Mg Cap, 1 CAP PO BID 03/16/24 Simvastatin (Simvastatin) 40 Mg Tab, 1 TAB PO DAILY 03/16/24 Alendronate Sodium (Alendronate Sodium) 70 Mg Tab, 1 TAB PO QWEEKLY 03/16/24 Tramadol Hcl (Tramadol Hcl) 50 Mg Tab, 1 TAB PO Q6HPRN PRN for pain 03/16/24 Information Source: Patient, Spouse Mode of Arrival: Ambulatory EKG EKG : Pulse Rate (adult): 211 Comments 1st EKG: SVT 2nd EK NSR Was a procedure done? Was a procedure done?: No CP Differential Dx Differential Diagnosis: A-fib, A-Flutter, Anxiety / Panic Attack, Atrial Dysrhythmia, Digoxin Toxicity, Electrolyte Disorder, Heart Failure, Hyperthyroidism, Hyperventilation, Hypoxia, MAT, LA, PAC's, Pacemaker Malfunction, PSVT, Pulmonary Embolus, PVC's, Renal Failure, Sinus Tachycardia, Torsades De Pointes, Ventricular Dysrhythmia, V-Fib, V-Tach, WPW X-Ray, Labs, Meds, VS Vital Signs Date Time Temp Pulse Resp B/P (MAP) Pulse Ox O2 Delivery O2 Flow Rate FiO2 06/10/25 19:30 98.0 110 15 136/77 (96) 96 98.0 06/10/25 19:30 110 96 Room Air* 0 21 06/10/25 18:01 109 06/10/25 18:00 107 16 129/82 (98) 100 06/10/25 18:00 109 06/10/25 17:20 107 16 110/62 (78) 100 06/10/25 16:59 105 16 99 Nasal Cannula* 2 28 06/10/25 16:50 98.2 105 16 101/56 (71) 99 98.2 06/10/25 16:48 211 06/10/25 16:46 108 06/10/25 16:45 98.0 211 26 110/69 96 98.0 06/10/25 16:30 211 Lab Test 06/10/25 19:15 06/10/25 18:00 06/10/25 17:32 06/10/25 16:33 Range/Units Troponin I High Sensitivity 107 *H 34 34 </=54 ng/L Urine Color Light-yellow Yellow Urine Clarity Clear Clear Urine pH 7.0 5.0-9.0 Urine Specific [place] 1.013 1.001-1.035 Urine Protein Trace H Negative Urine Ketones Negative Negative Urine Blood 1+ H Negative /uL Urine Nitrite Negative Negative Urine Bilirubin Negative Negative Urine Urobilinogen Normal Negative mg/dL Urine Leukocyte Esterase 3+ Negative /uL Urine RBC 32 0 - 3 /hpf Urine Microscopic WBC 71 H 0-3 /HPF Urine Squamous Epithelial Cells None seen <5 /hpf Urine Bacteria None seen None Seen /hpf Urine Glucose Normal Normal mg/dL Lactic Acid Level 1.7 0.4-2.0 mmol/L White Blood Count 7.4 4.4-10.8 10^3/uL Red Blood Count 3.75 L 4.5-5.90 10^6/uL Hemoglobin 12.3 L 13.5-17.5 g/dL Hematocrit 36.5 L 41.0-53.0 % Mean Corpuscular Volume 97.1 80.0-100.0 fL Mean Corpuscular Hemoglobin 32.7 H 28.0-32.0 pg Mean Corpuscular Hemoglobin Concent 33.6 32.0-36.0 g/dL Red Cell Distribution Width 14.6 H 11.8-14.3 % Platelet Count 226 140-450 10^3/uL Mean Platelet Volume 8.7 6.9-10.8 fL Neutrophils (%) (Auto) 70.8 37.0-80.0 % Lymphocytes (%) (Auto) 19.7 10.0-50.0 % Monocytes (%) (Auto) 7.9 0.0-12.0 % Eosinophils (%) (Auto) 1.2 0.0-7.0 % Basophils (%) (Auto) 0.4 0.0-2.0 % Neutrophils # (Auto) 5.3 1.6-8.6 10 ^3/uL Lymphocytes # (Auto) 1.5 0.4-5.4 10 ^3/uL Monocytes # (Auto) 0.6 0-1.3 10 ^3/uL Eosinophils # (Auto) 0.1 0-0.8 10 ^3/uL Basophils # (Auto) 0 0-0.2 10 ^3/uL Nucleated Red Blood Cells 0.1 % Sodium Level 136 136-145 mmol/L Potassium Level 4.8 3.5-5.1 mmol/L Chloride Level 100 98-107 mmol/L Carbon Dioxide Level 23 20-31 mmol/L Anion Gap 13 5-15 Blood Urea Nitrogen 29 H 9-23 mg/dL Creatinine 1.32 H 0.700-1.30 mg/dL Glomerular Filtration Rate Calc 55 >90 mL/min BUN/Creatinine Ratio 22.0 H 10.0-20.0 Serum Glucose 141 H 74-106 mg/dL Calcium Level 10.1 8.7-10.4 mg/dL Magnesium Level 2.1 1.6-2.6 mg/dL Total Bilirubin 0.4 0.2-1.0 mg/dL Aspartate Amino Transferase (AST) 28 13-40 U/L Alanine Aminotransferase (ALT) 21 7-40 U/L Alkaline Phosphatase 74 46-116 U/L B-Type Natriuretic Peptide 370.53 0-100 pg/mL Total Protein 7.5 5.7-8.2 g/dL Albumin 4.1 3.2-4.8 g/dL Time of 1ST Reevaluation: 17:15 Reevaluation 1ST: Unchanged Patient Education/Counseling: Diagnosis, Treatment Family Education/Counseling: Diagnosis, Treatment Comments MDM: patient presented with the above HPI.--SVT----workup was initiated. patient was found with the above mentioned diagnosis. the following medications were ordered: please refer to order lists of meds and tests obtained by myself Dr. Sexton. Patient ED course and VS have been stabilized. Patient has been reassessed in the ED and remained in a stable condition. Pertinent incidental findings were discussed with the patient and/or family. Patient/family voices understanding and is agreeable with plan. Patient has been observed in the ED adequate length of time to insure improvement/stability. Escalation of care considered: Consideration of escalation to observation or admission Valsalva maneuver was attempted, patient was given adenosine multiple boluses, patient was given Lopressor 5 mg IV. Patient converted to sinus rhythm/sinus tachycardia. Patient was ADMITTED to the medicine team for further evaluation and treatment of their presentation. All the reports of any imaging studies that were ordered by myself were reviewed by myself. SEPSIS Sepsis Screen Physician Orders Card Writer Hand (06/10/25 ) Chest Portable (06/10/25 16:44) Vital Signs Date Time Temp Pulse Resp B/P (MAP) Pulse Ox O2 Delivery O2 Flow Rate FiO2 06/10/25 19:30 98.0 110 15 136/77 (96) 96 98.0 06/10/25 19:30 110 96 Room Air* 0 21 06/10/25 18:01 109 06/10/25 18:00 107 16 129/82 (98) 100 06/10/25 18:00 109 06/10/25 17:20 107 16 110/62 (78) 100 06/10/25 16:59 105 16 99 Nasal Cannula* 2 28 06/10/25 16:50 98.2 105 16 101/56 (71) 99 98.2 06/10/25 16:48 211 06/10/25 16:46 108 06/10/25 16:45 98.0 211 26 110/69 96 98.0 06/10/25 16:30 211 Laboratory Tests Test 06/10/25 16:33 06/10/25 17:32 White Blood Count 7.4 10^3/uL (4.4-10.8) Lactic Acid Level 1.7 mmol/L (0.4-2.0) Departure 1 Departure Time of Disposition: 17:04 Impression: Primary Impression: SVT (supraventricular tachycardia) Additional Impression: Elevated troponin Disposition: 09 ADMITTED INPATIENT Admit to: Tele Condition: Guarded Discharged With: Self Critical Care Note Critical Care Time?: Yes (1 hr-critical care time only) Heart Score Heart Score: Heart Score Response (Comments) Value History Slightly Suspicious 0 EKG Repolarization Disturb 1 Age >65 2 Risk Factors >3 or Hx ASHD 2 Troponin 1-2 x's Normal limit 1 Total 6 I personally scribed for ABRAHAM SEXTON DO ([email or web address]) on 06/10/25 at 16:48. Electronically submitted by Alpesh Escoto ([email or web address]). ABRAHAM SEXTON DO Jun 10, 2025 16:48
[2025-06-10] MEDS: ADENOSINE 6 MG/2 ML INJ IV ONE ×3 (16:50)
[2025-06-10 16:58] LABS: Hematocrit 36.5 % (41.0-53.0); Hemoglobin 12.3 g/dL (13.5-17.5); Mean Corpuscular Hemoglobin 32.7 pg (28.0-32.0); Mean Corpuscular Volume 97.1 fL (80.0-100.0); Nucleated Red Blood Cells % 0.1 %
[2025-06-10 16:59] VITALS: PULSE 105; RESP 16; O2SAT 99
[2025-06-10 17:14] LABS: Alanine Aminotransferase 21 U/L (7-40); Albumin 4.1 g/dL (3.2-4.8); Alkaline Phosphatase 74 U/L (46-116); Anion Gap 13 (5-15); BUN/Creatinine Ratio 22.0 (10.0-20.0); Bilirubin, Total 0.4 mg/dL (0.2-1.0); Blood Urea Nitrogen 29 mg/dL (9-23); Calcium 10.1 mg/dL (8.7-10.4); Carbon Dioxide 23 mmol/L (20-31); Chloride 100 mmol/L (98-107); Glucose 141 mg/dL (74-106); Magnesium 2.1 mg/dL (1.6-2.6); Potassium 4.8 mmol/L (3.5-5.1); Sodium 136 mmol/L (136-145); Total Protein 7.5 g/dL (5.7-8.2)
--- NOTE | 2025-06-10 18:14 | ECG ---
[facility] Test Date: 2025-06-10 Test Time: 16:45:05 Pat Name: HERO STEWART Department: [facility] ED Patient ID: [facility]-[id number] Room: [address] [place] [address] Gender: M Digital Production Manager: EUSEBIO : 1945 Requested By: ABRAHAM SEXTON Order Number: [id number] Reading MD: Bolivar Jacinto Measurements Intervals [place] Rate: 108 P: 247 [place]: 175 QRS: -37 QRSD: 99 T: 82 QT: 359 QTc: 481 Interpretive Statements Sinus or ectopic atrial tachycardia Left axis deviation Minimal ST depression, diffuse leads Borderline prolonged QT interval Electronically Signed On 06-14-2025 14:52:24 PDT by Bolivar Jacinto Please click the below link to view image of tracing.
--- NOTE | 2025-06-10 18:14 | ECG ---
[facility] Test Date: 2025-06-10 Test Time: 17:57:35 Pat Name: HERO STEWART Department: [facility] ED Patient ID: [facility]-[id number] Room: [address] [place] [address] Gender: M Pre Sales Systems Engineer: EUSEBIO : 1945 Requested By: ABRAHAM SEXTON Order Number: [id number] Reading MD: Bolivar Jacinto Measurements Intervals [place] Rate: 109 P: 0 MD: 172 QRS: -32 QRSD: 99 T: 72 QT: 387 QTc: 522 Interpretive Statements Sinus tachycardia Left axis deviation Low voltage, precordial leads Prolonged QT interval Electronically Signed On 06-14-2025 14:52:41 PDT by Bolivar Jacinto Please click the below link to view image of tracing.
[2025-06-10 18:33] LABS: Urine Protein, UAD TRACE (Negative)
[2025-06-10 19:30] VITALS: PULSE 110; O2SAT 96
[2025-06-10] MEDS ORDERED: MORPHINE SULFATE INJ 2 MG/ml SYRG IV PRN (20:00)
[2025-06-10] MEDS ORDERED: ONDANSETRON HCL 4 MG/2 ML VIAL IV PRN (20:00)
[2025-06-10] MEDS ORDERED: ACETAMINOPHEN 325 MG TAB PO PRN (20:00)
[2025-06-10] MEDS ORDERED: NITROGLYCERIN 0.4 MG SL TAB SL PRN (20:00)
--- NOTE | 2025-06-10 20:02 | ECG ---
[facility] Test Date: 2025-06-10 Test Time: 19:57:58 Pat Name: HERO STEWART Department: [facility] ED Room: [address] [place] [address] Gender: M Mechanical Inspector: SUNDEEP : 1945 Requested By: ABRAHAM SEXTON Order Number: [id number] Reading MD: Bolivar Jacinto Measurements Intervals [place] Rate: 109 P: 0 [place]: 0 QRS: -40 QRSD: 101 T: 62 QT: 364 QTc: 491 Interpretive Statements Junctional tachycardia Left axis deviation Low voltage, precordial leads Borderline prolonged QT interval Electronically Signed On 06-14-2025 14:55:19 PDT by oBlivar Jacinto Please click the below link to view image of tracing.
--- NOTE | 2025-06-10 20:02 | DVHHP2 ---
History of Present Illness Reason for Visit: Dizziness History of Present Illness 80-year-old male presents for evaluation of dizziness. Patient presented as an outpatient to have a DEXA scan. During his vital sign check he was noted to be in rapid heart rhythm. It was confirmed to be SVT patient was brought in to the emergency department for evaluation. He just reports dizziness. No chest pain or shortness for breath. No other acute complaints. Past Medical History AFib, cancer, hypertension, dyslipidemia Past Surgical History Denies Family History Noncontributory Smoke: No ALCOHOL: none Drugs: None Lives: with Family Review of Systems Review of Systems Review of systems are currently negative otherwise addressed in HPI. Allergies: Coded Allergies: NO KNOWN ALLERGIES (Unverified , 03/15/24) Medications Current Medications Medications Dose Ordered Sig/Mónica Route Start Time Stop Time Status Last Admin Dose Admin Nitroglycerin 0.4 mg Q5MINP PRN SL 06/10/25 20:00 UNV Morphine Sulfate 2 mg Q30M PRN IV 06/10/25 20:00 UNV Exam Vital Signs Vital Signs Date Time Temp Pulse Resp B/P (MAP) Pulse Ox O2 Delivery O2 Flow Rate FiO2 06/10/25 18:01 109 06/10/25 18:00 16 129/82 (98) 100 06/10/25 16:59 Nasal Cannula* 2 28 06/10/25 16:50 98.2 98.2 Exam Gen: 80-year-old male in mild distress Skin: Warm, dry, normal color and texture, no rash. HEENT: Normocephalic atraumatic, mucous membranes moist and pink. Neck: Cervical and supraclavicular nodes normal without enlargement, trachea is midline, thyroid gland is normal without masses. Pulmonary: Clear to auscultation and percussion bilaterally. Cardiac: Sinus tachycardia Abdomen: Soft, nontender, nondistended, bowel sounds present all 4 quadrants, no guarding, no rigidity, no organomegaly. Extremities: No cyanosis, clubbing, no edema Neuro: Cranial nerves II through XII grossly intact, normal affect and speech, no focal motor deficits. Labs/Xrays Labs Test 06/10/25 19:15 06/10/25 18:00 06/10/25 17:32 06/10/25 16:33 Range/Units Troponin I High Sensitivity 107 *H </=54 ng/L Urine Color Light-yellow Yellow Urine Clarity Clear Clear Urine pH 7.0 5.0-9.0 Urine Specific [place] 1.013 1.001-1.035 Urine Protein Trace H Negative Urine Ketones Negative Negative Urine Blood 1+ H Negative /uL Urine Nitrite Negative Negative Urine Bilirubin Negative Negative Urine Urobilinogen Normal Negative mg/dL Urine Leukocyte Esterase 3+ Negative /uL Urine RBC 32 0 - 3 /hpf Urine Microscopic WBC 71 H 0-3 /HPF Urine Squamous Epithelial Cells None seen <5 /hpf Urine Bacteria None seen None Seen /hpf Urine Glucose Normal Normal mg/dL Lactic Acid Level 1.7 0.4-2.0 mmol/L White Blood Count 7.4 4.4-10.8 10^3/uL Red Blood Count 3.75 L 4.5-5.90 10^6/uL Hemoglobin 12.3 L 13.5-17.5 g/dL Hematocrit 36.5 L 41.0-53.0 % Mean Corpuscular Volume 97.1 80.0-100.0 fL Mean Corpuscular Hemoglobin 32.7 H 28.0-32.0 pg Mean Corpuscular Hemoglobin Concent 33.6 32.0-36.0 g/dL Red Cell Distribution Width 14.6 H 11.8-14.3 % Platelet Count 226 140-450 10^3/uL Mean Platelet Volume 8.7 6.9-10.8 fL Neutrophils (%) (Auto) 70.8 37.0-80.0 % Lymphocytes (%) (Auto) 19.7 10.0-50.0 % Monocytes (%) (Auto) 7.9 0.0-12.0 % Eosinophils (%) (Auto) 1.2 0.0-7.0 % Basophils (%) (Auto) 0.4 0.0-2.0 % Neutrophils # (Auto) 5.3 1.6-8.6 10 ^3/uL Lymphocytes # (Auto) 1.5 0.4-5.4 10 ^3/uL Monocytes # (Auto) 0.6 0-1.3 10 ^3/uL Eosinophils # (Auto) 0.1 0-0.8 10 ^3/uL Basophils # (Auto) 0 0-0.2 10 ^3/uL Nucleated Red Blood Cells 0.1 % Sodium Level 136 136-145 mmol/L Potassium Level 4.8 3.5-5.1 mmol/L Chloride Level 100 98-107 mmol/L Carbon Dioxide Level 23 20-31 mmol/L Anion Gap 13 5-15 Blood Urea Nitrogen 29 H 9-23 mg/dL Creatinine 1.32 H 0.700-1.30 mg/dL Glomerular Filtration Rate Calc 55 >90 mL/min BUN/Creatinine Ratio 22.0 H 10.0-20.0 Serum Glucose 141 H 74-106 mg/dL Calcium Level 10.1 8.7-10.4 mg/dL Magnesium Level 2.1 1.6-2.6 mg/dL Total Bilirubin 0.4 0.2-1.0 mg/dL Aspartate Amino Transferase (AST) 28 13-40 U/L Alanine Aminotransferase (ALT) 21 7-40 U/L Alkaline Phosphatase 74 46-116 U/L B-Type Natriuretic Peptide 370.53 0-100 pg/mL Total Protein 7.5 5.7-8.2 g/dL Albumin 4.1 3.2-4.8 g/dL SEPSIS Sepsis Screen Date sepsis recognized/suspect: Jun 10, 2025 Time Sepsis recognized/suspect: 1629 Recent Procedure: No On Antibiotic Therapy: No Respiratory Rate >20: Yes Heart Rate >90: Yes Temp<36 C (96.8 F) or >38.3 C: No SBP <90 or MAP <65 mmHG: No New Acute Mental Status Change: No Is the patient on CPAP, BIPAP,: No Physician Orders Supervisor Metal Placing (06/10/25 ) Chest Portable (06/10/25 16:44) Electrocardigram (06/10/25 19:44) Ceftriaxone 1gm/50ml (Rocephin) (06/10/25 19:30) Admit (06/10/25 19:53) Nitroglycerin Sublingual (Ntrostat Subli (06/10/25 20:00) Morphine Sulfate Injection (06/10/25 20:00) Stat Ekg For Chest Pain (06/10/25 19:53) Notify Of Changes From Base (06/10/25 19:53) Guest Relations Agent For 24 Hours (06/10/25 19:53) Emergency Dysrhythmia Protocol (06/10/25 19:53) Rhythm Strips Once Every Shift (06/10/25 19:53) Oxygen By Nasal Cannula (10/23/25 19:53) Apixaban (Eliquis) (06/10/25 22:00) Gabapentin Capsule (Neurontin Capsule) (06/11/25 10:00) Metoprolol Tartrate Tablet (Lopressor Ta (06/10/25 22:00) Sacubitril-Valsartan (Entresto 24-26 Mg (06/10/25 22:00) Atorvastatin (Lipitor) (06/10/25 22:00) Tamsulosin Hydrochloride (Flomax) (06/11/25 18:00) * Cardiology Consult (06/10/25 19:54) Basic Metabolic Panel (06/11/25 04:00) Ondansetron Hcl (Zofran) (06/10/25 20:00) Cardiac Diet-2gna,Lofat,Lochol (06/11/25 Breakfast) Echo 2d Mode Cardiac Dop (06/10/25 19:54) Condition: Fair (06/10/25 19:54) Acetaminophen Tablet (Tylenol Tablet) (06/10/25 20:00) Bedrest With Bathroom Privileg (06/10/25 19:54) Vital Signs Date Time Temp Pulse Resp B/P (MAP) Pulse Ox O2 Delivery O2 Flow Rate FiO2 06/10/25 18:01 109 06/10/25 18:00 107 16 129/82 (98) 100 06/10/25 18:00 109 06/10/25 17:20 107 16 110/62 (78) 100 06/10/25 16:59 105 16 99 Nasal Cannula* 2 28 06/10/25 16:50 98.2 105 16 101/56 (71) 99 98.2 06/10/25 16:48 211 06/10/25 16:46 108 06/10/25 16:45 98.0 211 26 110/69 96 98.0 06/10/25 16:30 211 Laboratory Tests Test 06/10/25 16:33 06/10/25 17:32 White Blood Count 7.4 10^3/uL (4.4-10.8) Lactic Acid Level 1.7 mmol/L (0.4-2.0) Medications Medications Dose Ordered Sig/Mónica Route Start Time Stop Time Status Last Admin Dose Admin Adenosine 6 mg ONCE ONCE IV 06/10/25 17:00 06/10/25 17:01 DC 06/10/25 16:50 6 MG Adenosine 12 mg ONCE ONCE IV 06/10/25 17:00 06/10/25 17:01 DC 06/10/25 16:50 12 MG Adenosine 12 mg ONCE ONCE IV 06/10/25 17:00 06/10/25 17:01 DC 06/10/25 16:50 12 MG Assessment/Plan Assessment/Plan Assessment SVT Acute kidney injury Hypertension Plan Admit the patient to telemetry to the hospitalist Cardiology consultation Echocardiogram pending Resume home medications Continue treatment per orders Plan discussed with: Patient My Orders Orders - POORNIMA BERMUDEZ AGACNP Procedure Category Date Status Time Admit ADMIT 06/10/25 Transmitted 19:53 Nitroglycerin PHA 06/10/25 Logged Sublingual (Ntrostat 20:00 Morphine Sulfate PHA 06/10/25 Logged Injection 20:00 Stat Ekg For Chest [facility] 06/10/25 In Process Pain 19:53 Notify Of Changes [facility] 06/10/25 In Process From Base 19:53 Guest Relations Agent For [facility] 06/10/25 In Process 24 Hours 19:53 Emergency Dysrhythmia [facility] 06/10/25 In Process Protocol 19:53 Rhythm Strips Once [facility] 06/10/25 In Process Every Shift 19:53 Oxygen By Nasal RT 06/10/25 Transmitted Cannula 19:53 Apixaban (Eliquis) PHA 06/10/25 Transmitted 22:00 Gabapentin Capsule PHA 06/11/25 Transmitted (Neurontin Capsule) 10:00 Metoprolol Tartrate PHA 06/10/25 Transmitted Tablet (Lopressor Ta 22:00 Sacubitril-Valsartan PHA 06/10/25 Transmitted (Entresto 24-26 Mg 22:00 Atorvastatin (Lipitor) PHA 06/10/25 Transmitted 22:00 Tamsulosin PHA 06/11/25 Verified Hydrochloride (Flomax) 18:00 * Cardiology Consult CONS 06/10/25 Verified 19:54 Basic Metabolic Panel LAB 06/11/25 Verified 04:00 Ondansetron Hcl PHA 06/10/25 Verified (Zofran) 20:00 Cardiac DIET 06/11/25 Verified Diet-2gna,Lofat,Lochol Breakfast Echo 2d Mode Cardiac US 06/10/25 Verified DOP 19:54 Condition: Fair PAT 10/23/25 Verified 19:54 Acetaminophen Tablet PHA 06/10/25 Verified (Tylenol Tablet) 20:00 Bedrest With Bathroom PAT 06/10/25 Verified Privileg 19:54 Date of Service: Jun 10, 2025 Billing Provider: POORNIMA BERMUDEZ Common Visit Codes: [id number] INP/OBS CARE (HIGH) POORNIMA BERMUDEZ Jun 10, 2025 20:02
[2025-06-10 21:51] VITALS: BP 111/78; PULSE 220; RESP 18; TEMP 97.8; O2SAT 98
[2025-06-10 22:17] VITALS: BP 111/78; PULSE 111; PULSE 220; RESP 18; TEMP 98.7; O2SAT 98; O2SAT 99
[2025-06-10] MEDS: APIXABAN 2.5 MG TAB PO SCH (22:23)
[2025-06-10] MEDS: SACUBITRIL-VALSARTAN 24mg/26mg TAB PO SCH (22:23)
[2025-06-10] MEDS: ATORVASTATIN 20 MG TAB PO SCH (22:23)
[2025-06-10] MEDS: METOPROLOL TARTRATE 50 MG TAB PO SCH (22:24)
[2025-06-11] VITALS (7 sets, daily range): BP systolic 100–116; BP diastolic 69–85; PULSE 106–124; RESP 17–19; TEMP 97.1–98.1; O2SAT 98–99
[2025-06-11 06:50] LABS: Chloride 104 mmol/L (98-107); Potassium 4.2 mmol/L (3.5-5.1); Sodium 139 mmol/L (136-145)
[2025-06-11 06:51] LABS: Anion Gap 9 (5-15); Calcium 9.8 mg/dL (8.7-10.4); Carbon Dioxide 26 mmol/L (20-31)
[2025-06-11 06:56] LABS: BUN/Creatinine Ratio 18.5 (10.0-20.0); Blood Urea Nitrogen 20 mg/dL (9-23)
[2025-06-11 07:03] LABS: Glucose 110 mg/dL (74-106)
--- NOTE | 2025-06-11 09:20 | DVHCONRES ---
Date Seen: Jun 11, 2025 Resident Creating Document: NIMCO FORRESTER RESIDENT Referring Physician Ervin VICTOR History of Present Illness 80-year-old male was sent to the ER from outpatient clinic where he was scheduled to get a DEXA scan. Per chart review, patient's pulse was in 200s, and he was reporting shortness of breaths, and dizziness therefore he was sent to the ER where patient was diagnosed to be SVT and consequently adenosine IV and vagal maneuvers were administered which was successful in converting him to sinus rhythm. Patient reports that he has been experiencing shortness of breaths on exertion, dizziness on exertion, generalized weakness for the past 2 days, only on exertion and relieved on rest. He denies any chest pain, shortness of breaths at rest, orthopnea, PND, any other GI or complaints. Denies fever or chills. He reports compliance to his medications. Patient had an appointment with Dr. Canseco on 06/11/2025. 06/11-patient was seen and examined. Patient was ambulated in the room with the assistance of walker, his heart rate went from 100 to 200 bpm. Patient started to feel shortness of breath, dizziness and weak and he was rested in the bed. Blood pressure 77/51 mmHg, EKG showed SVT with a rate of to 212 beats per minute. Preparation for cardioversion was being done when right-sided carotid massage terminated SVT. Past medical history: HFrEF-12%, end-stage dilated cardiomyopathy-? Ischemic cardiomyopathy, history of SVT and NSVT, paroxysmal AFib on Eliquis, prostate cancer, colon cancer, history of tobacco use, obesity Past surgical history: Reports possible left heart catheterization 6 years back in [place]-no ANN Home medications: Entresto, metoprolol tartrate 50 mg b.i.d., spironolactone 25 mg daily, Eliquis 2.5 mg b.i.d., tamsulosin Social history: Quit smoking 1984, smoked 15 years a pack a day, denies drinking or drug use, lives in [place] with the and niece Patient seen and examined. Echocardiogram pending. Patient will be scheduled for nuclear stress test with Lexiscan. Family History: Alzheimer's disease G8 MOTHER G8 FATHER Diabetes mellitus G8 MOTHER FH: leukemia G8 FATHER Allergies: Coded Allergies: NO KNOWN ALLERGIES (Unverified , 03/15/24) Home Meds Active Scripts Magnesium Oxide (MAGNESIUM OXIDE) 400 Mg Tab, 1 TAB PO DAILY for 30 Days, #30 TAB 3 Refills Prov:GABRIELA BEY [employer] 03/19/24 Spironolactone (Aldactone) 25 Mg Tab, 25 MG PO DAILY for 30 Days, #30 TAB 3 Refills Prov:GABRIELA BEY SUPER[employer] 03/19/24 Sacubitril-Valsartan (Entresto 24-26 mg) 1 Tab Tab, 0.5 TAB PO BID for 30 Days, #30 TAB 3 Refills Prov:GABRIELA BEY SUPER[employer] 03/19/24 Metoprolol Tartrate (LOPRESSOR TABLET) 50 Mg Tb, 50 MG PO Q12HR for 30 Days, #60 TAB 3 Refills Prov:GABRIELA BEY SUPER[employer] 03/19/24 Apixaban Base (ELIQUIS) 2.5 Mg Tab, 2.5 MG PO BID for 30 Days, #60 TAB 3 Refills Prov:GABRIELA BEY SUPER[employer] 03/19/24 Reported Medications Gabapentin (Gabapentin) 300 Mg Cap, 400 MG PO DAILY, CAP 12/17/24 Cholecalciferol (D3) 62.5 Mcg Chw, 125 MCG PO DAILY, TAB.CHEW 12/17/24 Cyanocobalamin (B12) 1,000 Mcg/15 Ml Liq, 2500 MCG PO DAILY, LIQ 12/17/24 Clotrimazole (Lotrimin Af) 1 % Cre, 1 APPLIC TOP BID, #24 GRAMS 1 Refill 03/16/24 Diclofenac Sodium (Topical) (Diclofenac Sodium) 1 % Gel, 1 APPLIC TOP BID 03/16/24 Gabapentin (Gabapentin) 400 Mg Cap, 1 TAB PO BID 03/16/24 Tamsulosin Hcl (Tamsulosin Hcl) 0.4 Mg Cap, 1 CAP PO DAILY 03/16/24 Oxybutynin Chloride (Oxybutynin Chloride) 5 Mg Tab, 1 TAB PO BID 03/16/24 Omeprazole (Omeprazole Dr) 20 Mg Cap, 1 CAP PO BID 03/16/24 Simvastatin (Simvastatin) 40 Mg Tab, 1 TAB PO DAILY 03/16/24 Alendronate Sodium (Alendronate Sodium) 70 Mg Tab, 1 TAB PO QWEEKLY 03/16/24 Tramadol Hcl (Tramadol Hcl) 50 Mg Tab, 1 TAB PO Q6HPRN PRN for pain 03/16/24 Current Medications Current Medications Medications (Trade) Dose Ordered Sig/Mónica Route PRN Reason Start Time Stop Time Status Last Admin Nitroglycerin (Ntrostat Sublingual) 0.4 mg Q5MINP PRN SL FOR CHEST PAIN 06/10/25 20:00 Morphine Sulfate 2 mg Q30M PRN IV FOR CHEST PAIN 06/10/25 20:00 Apixaban (Eliquis) 2.5 mg BID PO 06/10/25 22:00 06/10/25 22:23 Gabapentin (Neurontin Capsule) 300 mg DAILY PO 06/11/25 10:00 Metoprolol Tartrate (Lopressor Tablet) 50 mg BID PO 06/10/25 22:00 06/10/25 22:24 Sacubitril/ Valsartan (Entresto 24-26 Mg tab) 0.5 tab BID PO 06/10/25 22:00 06/10/25 22:23 Atorvastatin Calcium (Lipitor) 40 mg HS PO 06/10/25 22:00 06/10/25 22:23 Tamsulosin HCl (Flomax) 0.4 mg QPM PO 06/11/25 18:00 Ondansetron HCl (Zofran) 4 mg Q4HP PRN IV NAUSEA / VOMITING 06/10/25 20:00 Acetaminophen (Tylenol Tablet) 650 mg Q6HP PRN PO PAIN SCALE 1-3 OR TEMP>100.4 06/10/25 20:00 Review of Systems Eyes: No Pain, No Vision change, No Conjunctivae inflammation, No Eyelid inflammation, No Other, No Redness ENT: No Ear pain, No Ear discharge, No Nose pain, No Nose discharge, No Nose congestion, No Mouth pain, No Mouth swelling, No Throat pain, No Throat swelling, No Other Cardiovascular: Reports dizziness, shortness of breaths on exertion No Chest Pain, No Palpitations, No Orthopnea, No PND, No Edema, No Lt Headedness, No Other Respiratory: No Cough, No Dry, No Shortness of breath, No SOB with exertion, No Wheezing, No Hemoptysis, No Pleuritic Pain, No Sputum, No Other Gastrointestinal: No Nausea, No Vomiting, No Abdominal Pain, No Diarrhea, No Constipation, No Melena, No Hematochezia, No Other Genitourinary: No Dysuria, No Frequency, No Incontinence, No Hematuria, No Retention, No Other Musculoskeletal: No other, No neck pain, No shoulder pain, No arm pain, No back pain, No hand pain, No leg pain, No foot pain Skin: No Rash, No Lesions, No Jaundice, No Bruising, No Other Vital Signs Vital Signs Date Time Temp Pulse Resp B/P (MAP) Pulse Ox O2 Delivery O2 Flow Rate FiO2 06/11/25 05:00 97.7 106 18 116/81 (93) 99 97.7 06/10/25 22:17 Room Air* 0 21 Physical Exam Patient lying in bed, in mild distress General: Well-built, afebrile, palor, mucosae are moist Cardiovascular: Tachycardic but Regular S1 and S2. No murmurs, gallops or rubs. No JVD elevation. No pedal edema Respiratory: Decreased bilateral air entry, bibasilar crackles Abdomen: Soft, nontender, nondistended, normoactive bowel sounds, no rebound tenderness, no organomegaly, no masses Genitourinary: Deferred MSK/skin: Mobilizes 4 limbs. Skin is dry and warm Neurological: No motor, no sensitive deficits, normal speech. Pupils are isocoric and reactive. Psych/Mental Status: A/Ox3 Labs/Diagnostic Data Labs Test 06/11/25 04:45 06/10/25 19:15 06/10/25 18:00 06/10/25 17:32 Range/Units Sodium Level 139 136-145 mmol/L Potassium Level 4.2 3.5-5.1 mmol/L Chloride Level 104 98-107 mmol/L Carbon Dioxide Level 26 20-31 mmol/L Anion Gap 9 5-15 Blood Urea Nitrogen 20 9-23 mg/dL Creatinine 1.08 0.700-1.30 mg/dL Glomerular Filtration Rate Calc 70 >90 mL/min BUN/Creatinine Ratio 18.5 10.0-20.0 Serum Glucose 110 H 74-106 mg/dL Calcium Level 9.8 8.7-10.4 mg/dL Troponin I High Sensitivity 107 *H </=54 ng/L Urine Color Light-yellow Yellow Urine Clarity Clear Clear Urine pH 7.0 5.0-9.0 Urine Specific [place] 1.013 1.001-1.035 Urine Protein Trace H Negative Urine Ketones Negative Negative Urine Blood 1+ H Negative /uL Urine Nitrite Negative Negative Urine Bilirubin Negative Negative Urine Urobilinogen Normal Negative mg/dL Urine Leukocyte Esterase 3+ Negative /uL Urine RBC 32 0 - 3 /hpf Urine Microscopic WBC 71 H 0-3 /HPF Urine Squamous Epithelial Cells None seen <5 /hpf Urine Bacteria None seen None Seen /hpf Urine Glucose Normal Normal mg/dL Lactic Acid Level 1.7 0.4-2.0 mmol/L Test 06/10/25 16:33 Range/Units White Blood Count 7.4 4.4-10.8 10^3/uL Red Blood Count 3.75 L 4.5-5.90 10^6/uL Hemoglobin 12.3 L 13.5-17.5 g/dL Hematocrit 36.5 L 41.0-53.0 % Mean Corpuscular Volume 97.1 80.0-100.0 fL Mean Corpuscular Hemoglobin 32.7 H 28.0-32.0 pg Mean Corpuscular Hemoglobin Concent 33.6 32.0-36.0 g/dL Red Cell Distribution Width 14.6 H 11.8-14.3 % Platelet Count 226 140-450 10^3/uL Mean Platelet Volume 8.7 6.9-10.8 fL Neutrophils (%) (Auto) 70.8 37.0-80.0 % Lymphocytes (%) (Auto) 19.7 10.0-50.0 % Monocytes (%) (Auto) 7.9 0.0-12.0 % Eosinophils (%) (Auto) 1.2 0.0-7.0 % Basophils (%) (Auto) 0.4 0.0-2.0 % Neutrophils # (Auto) 5.3 1.6-8.6 10 ^3/uL Lymphocytes # (Auto) 1.5 0.4-5.4 10 ^3/uL Monocytes # (Auto) 0.6 0-1.3 10 ^3/uL Eosinophils # (Auto) 0.1 0-0.8 10 ^3/uL Basophils # (Auto) 0 0-0.2 10 ^3/uL Nucleated Red Blood Cells 0.1 % Magnesium Level 2.1 1.6-2.6 mg/dL Total Bilirubin 0.4 0.2-1.0 mg/dL Aspartate Amino Transferase (AST) 28 13-40 U/L Alanine Aminotransferase (ALT) 21 7-40 U/L Alkaline Phosphatase 74 46-116 U/L B-Type Natriuretic Peptide 370.53 0-100 pg/mL Total Protein 7.5 5.7-8.2 g/dL Albumin 4.1 3.2-4.8 g/dL Assessment Dizziness and generalized fatigue - dt paroxysmal SVT Paroxysmal atrial fibrillation-chads vasc NSTEMI likely type 1 Chronic heart failure with reduced ejection fraction-EF 12% End-stage dilated cardiomyopathy History of SVT and NSVT Dyslipidemia History of colon cancer Prostate cancer Former tobacco dependence Echocardiogram pending BNP 3 7 0 EKG 06/11 shows SVT with a rate 212 bpm, repeat EKG shows termination of SVT, rate 101 Plan/Recommendation Given the low EF-12%, SVTs - patient will be scheduled for inpatient stress test with Lexiscan on 1st availability. Recommend vagal maneuvers for SVT if hemodynamically stable, IV adenosine if vagal maneuvers do not terminate SVT Recommend synchronized cardioversion in case of SVT and SBP less than 80 mmHg Continue telemetry monitoring, bedrest, ambulation with the nurse Hold Eliquis, started Lovenox b.i.d. 1 milligram/kg Consulted Dr. Paulino for evaluation for intermittent SVTs, need for ablation Continue guideline directed medical therapy with Entresto, spironolactone, metoprolol tartrate 50 mg b.i.d. Maintain K greater than 4, Mag greater than 2 IV antibiotics for UTI Rest of management per primary team Plan discussed with patient, nurse similar in which all questions have been answered Case discussed with Dr. Canseco Plan discussed with: Patient, Other (Nurse summer) Visit Coding Cardiology RES Date of Service: Jun 11, 2025 Billing Provider: NANO CANSECO Sr., MD Cardiology Common Codes: CONSULT ONLY NIMCO FORRESTER RESIDENT Jun 11, 2025 09:20
[2025-06-11] MEDS: GABAPENTIN 300 MG CAP PO SCH (10:13)
[2025-06-11] MEDS ORDERED: MAGNESIUM SULF 50% 40 MEQ/10 ML VL IV ONE (10:41)
[2025-06-11] MEDS: MIDAZOLAM HCL 5 MG/ML-1ML VIAL ONE (10:54)
[2025-06-11 12:24] LABS: INR 1.09 (0.9-1.15); Partial Thromboplastin Time 31.3 SEC (24.5-34.5); Prothrombin Time 11.5 sec (9.3-11.8)
[2025-06-11] MEDS: REGADENOSON 0.4 MG/5 ML SYRG IV ONE ×2 (13:21→13:27)
--- NOTE | 2025-06-11 16:49 | DVHPN2 ---
Subjective I am assuming the care of the patient from today onwards patient is came back from stress test. 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 Medications Current Medications Medications Dose Ordered Sig/Mónica Route Start Time Stop Time Status Last Admin Dose Admin Nitroglycerin 0.4 mg Q5MINP PRN SL 06/10/25 20:00 Morphine Sulfate 2 mg Q30M PRN IV 06/10/25 20:00 Apixaban 2.5 mg BID PO 06/10/25 22:00 Hold 06/11/25 10:13 2.5 MG Gabapentin 300 mg DAILY PO 06/11/25 10:00 06/11/25 10:13 300 MG Metoprolol Tartrate 50 mg BID PO 06/10/25 22:00 06/11/25 10:12 50 MG Sacubitril/ Valsartan 0.5 tab BID PO 06/10/25 22:00 06/11/25 10:13 0.5 TAB Atorvastatin Calcium 40 mg HS PO 06/10/25 22:00 06/10/25 22:23 40 MG Tamsulosin HCl 0.4 mg QPM PO 06/11/25 18:00 Ondansetron HCl 4 mg Q4HP PRN IV 06/10/25 20:00 Acetaminophen 650 mg Q6HP PRN PO 06/10/25 20:00 Spironolactone 25 mg DAILY PO 06/11/25 10:00 Ceftriaxone Sodium 50 ml @ 100 mls/hr DAILY@09 IV 06/12/25 09:00 Laboratory Results Laboratory Tests 06/10/25 16:33 06/11/25 04:45 Chemistry Test 06/11/25 04:45 Calcium Level 9.8 mg/dL (8.7-10.4) Magnesium Level 2.2 mg/dL (1.6-2.6) Coagulation Test 06/11/25 11:53 Prothrombin Time 11.5 sec (9.3-11.8) Prothrombin Time INR 1.09 (0.9-1.15) Activated Partial Thromboplast Time 31.3 SEC (24.5-34.5) HgA1c, TSH Test 06/11/25 04:45 Thyroid Stimulating Hormone (TSH) 0.78 uIU/mL (0.55-4.78) Urinalysis Test 06/10/25 18:00 Urine Color Light-yellow (Yellow) Urine Clarity Clear (Clear) Urine pH 7.0 (5.0-9.0) Urine Specific [place] 1.013 (1.001-1.035) Urine Protein Trace (Negative) H Urine Ketones Negative (Negative) Urine Blood 1+ /uL (Negative) H Urine Nitrite Negative (Negative) Urine Bilirubin Negative (Negative) Urine Urobilinogen Normal mg/dL (Negative) Urine Leukocyte Esterase 3+ /uL (Negative) Urine RBC 32 /hpf (0 - 3) Urine Microscopic WBC 71 /HPF (0-3) H Urine Squamous Epithelial Cells None seen /hpf (<5) Urine Bacteria None seen /hpf (None Seen) Urine Glucose Normal mg/dL (Normal) Assessment/Plan Assessment/Plan 80-year-old male with a known history of hypertension, dyslipidemia cardiomyopathy with the EF of 35% who initially presented to the hospital as he was sent by outpatient DEXA scan where he is rhythm was found to be irregular found to have 1. Paroxysmal supraventricular tachycardia status post adenosine 3. Chronic congestive heart failure exacerbation with systolic dysfunction 4. NSTEMI type 1 5. Chronic tobacco use disorder 6. Dyslipidemia 7. History of colon cancer and prostate cancer -patient is going for Lexiscan, continue current management. Plan discussed with: Patient, Spouse Date of Service: Jun 11, 2025 Billing Provider: MADELINE NEWMAN MD Common Visit Codes: [id number] INP/OBS CARE(HIGH) MADELINE NEWMAN MD Jun 11, 2025 16:49
[2025-06-11] MEDS: SPIRONOLACTONE 25 MG TAB PO SCH (17:10)
[2025-06-11] MEDS: TAMSULOSIN HYDROCHLORIDE 0.4 MG CAP PO SCH (18:02)
--- NOTE | 2025-06-11 18:16 | DVHSR ---
APPROVED REPORT EXAM: Two-dimensional and M-mode echocardiogram with Doppler and color Doppler. Blood Pressure: 116/81 mmHg INDICATION svt RISK FACTORS Obesity: Height: 6'3, Weight: 224 DIMENSIONS LVDd5.5 (3.8-5.7cm)LA (2D)5.0 (1.9-4.0cm)Aortic Root3.4 (2.0-3.7cm) LVDs5.0 (2.5-4.0cm)LA (MM) (1.9-4.0cm)Aortic Cusp Exc1.9 (1.5-2.0cm) EF (%) 20.0 (55-70%)Rt. Atrium4.4 (1.9-4.0cm)Asc. Aorta cm IVSd1.0 (0.7-1.1cm)RV (D)3.9 (1.8-2.4cm) PWd1.1 (0.7-1.1cm) Mitral Valve MitralMitral Stenosis E wavem/sMV Mean GR.2mmHg A wavem/sMV Peak GR.86mmHg E/A ratio0.02D MVAcm2 Aortic Valve Aortic ValveAortic Stenosis V10.80m/Cit[place]ali Mean GR.mmHg V21.08m/[place]ali Peak GR.5mmHg LVOT Diameter2.3 (1.8-2.4cm)Doppler AVA3.08cm2 Pulmonic Valve V20.77m/s Tricuspid Valve TR Velocity2.33m/s [id number] Other Information Technically limited study due to body habitus. Conclusion lvef 35% dilated LV RV enlarged no severe valve abnormalities noted mild mitral regurg
--- NOTE | 2025-06-11 18:48 | DVHSR ---
APPROVED REPORT Exam: Nuclear Stress Test BMI: 0 Stress Test Details Stress Test: Pharmacologic stress testing performed using 0.4 mg of regadenoson per 5 mL given IV ov er 10 seconds. HR Resting HR: 110 bpmMax Heart Rate (APMHR): 142.313324 bpm Max HR Achieved: 126 bpmTarget HR (85% APMHR): 120.564099 bpm % of APMHR: 88.73 Recovery HR: 114 bpm BP Resting BP: 107/67 mmHg Recovery BP: 100/50 mmHg ECG Resting ECG: Atrial Fibrillation Clinical Reason for Termination: Completed protocol Nurse Comments Recieved pt. from HDF. A/Ox4 on RA. 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 PIV flushes well. Re viewed POC. Pt. verbalized understanding of procedure including risks and side effects, agrees for st ress testing. Lexiscan stress test performed per protocol. HDF tech administered Cardiolite. Pt. tolerated well . Pt. stable, no change on exam. VS returned to baseline. Transferred to HDF via wheelchair w/ te ch. Stress ECG Conclusion lvf 27% dilated LV inferior infarct no major ischemia NM EXAM: Myocardial Perfusion REST/STRESS Imaging Protocol: Rest Tc-99m/Stress Tc-99m 1 day Resting Data Rest SPECT myocardial perfusion imaging was performed in supine position 45 minutes following the int ravenous injection of 10.9 mCi of Tc-99m Sestamibi. Time of rest injection: 12:15 Date: 06/11/2025 Time of rest imagin:00 Date: 06/11/2025 Administration Route: IV Administration Site: Left Hand Pharmacologic Stress Pharmacologic stress test was performed by injecting Regadenoson 0.4 mg IV push followed by the intra venous injection of 28.1 mCi of Tc-99m Sestamibi. Time of stress injection: 13:24 Date: 06/11/2025 Time of stress imagin:09 Date: 06/11/2025 Administration Route: IV Administration Site: Left Hand Gated Stress SPECT was performed 45 minutes after stress injection. The images were gated to evaluate regional wall motion and calculate left ventricular ejection fracti on. Stress only was performed in the Supine position. Nuclear Conclusion lvf 27% dilated LV inferior infarct no major ischemia
[2025-06-11] MEDS: ENOXAPARIN SOD 100 MG/1 ML SYRINGE SC SCH (21:19)
[2025-06-12] VITALS (8 sets, daily range): BP systolic 91–105; BP diastolic 45–72; PULSE 114–119; RESP 14–18; TEMP 96.5–97.8; O2SAT 95–99
--- NOTE | 2025-06-12 14:22 | DVHPN2 ---
Consult Progress Note Subjective Other Systems: Remains in atrial fibrillation on hall monitor (rate in 110's) Objective vital signs Vital Sign Date Time Temp Pulse Resp B/P (MAP) Pulse Ox O2 Delivery O2 Flow Rate FiO2 06/12/25 13:00 96.8 117 16 91/59 (70) 98 96.8 06/12/25 08:00 Room Air* 0 21 Total Intake and Output 06/11/25 06/11/25 06/12/25 15:00 23:00 07:00 Intake Total 240 ml 50 ml 800 ml Output Total 370 ml 120 ml Balance 240 ml -320 ml 680 ml medications Current Medications Medications Dose Ordered Sig/Mónica Route Start Time Stop Time Status Last Admin Dose Admin Nitroglycerin 0.4 mg Q5MINP PRN SL 06/10/25 20:00 Morphine Sulfate 2 mg Q30M PRN IV 06/10/25 20:00 Gabapentin 300 mg DAILY PO 06/11/25 10:00 06/12/25 08:55 300 MG Metoprolol Tartrate 50 mg BID PO 06/10/25 22:00 06/12/25 08:57 50 MG Sacubitril/ Valsartan 0.5 tab BID PO 06/10/25 22:00 06/12/25 08:55 0.5 TAB Atorvastatin Calcium 40 mg HS PO 06/10/25 22:00 06/10/25 22:23 40 MG Tamsulosin HCl 0.4 mg QPM PO 06/11/25 18:00 06/11/25 18:02 0.4 MG Ondansetron HCl 4 mg Q4HP PRN IV 06/10/25 20:00 Acetaminophen 650 mg Q6HP PRN PO 06/10/25 20:00 Spironolactone 25 mg DAILY PO 06/11/25 10:00 06/12/25 08:54 25 MG Ceftriaxone Sodium 50 ml @ 100 mls/hr DAILY@09 IV 06/12/25 09:00 06/12/25 08:54 100 MLS/HR Enoxaparin Sodium 100 mg Q12HR SC 06/11/25 22:00 06/12/25 08:56 100 MG Examination: GENERAL:Normal, LUNGS:Normal, CVS:Abnormal (Afib), NEURO:Normal laboratory and microbiology Laboratory Tests 06/11/25 04:45 06/10/25 16:33 Test 06/11/25 04:45 Range/Units Serum Glucose 110 H 74-106 mg/dL Problem List/Assessment/Plan Problem List/Assessment/Plan Paroxysmal SVT Paroxysmal atrial fibrillation (on Eliquis) NSTEMI, possibly type 1 Chronic HFrEF, NYHA class III Dyslipidemia History of colon and prostate cancer History of tobacco use Plan/recommendations (): A transthoracic echocardiogram reveals an EF of 35%. Continue with guideline directed medical therapy for CHF as tolerated. Hold SGLT2i at this time given UTI. Nuclear stress test reveals inferior infarct, no major ischemia. Patient may benefit from coronary angiogram with left heart catheterization. The procedure was discussed with the patient in full detail including risks and benefits. Risks include but are not limited to bleeding, contrast-induced nephropathy, coronary dissection, stroke, and even . The patient understands and is agreeable to undergo the procedure. We will tentatively schedule the patient for coronary angiogram with left heart catheterization on 06/14/2025 with . Recommend vagal maneuver for SVT if hemodynamically stable, give IV adenosine if vagal maneuvers do not terminate SVT. Consider synchronized cardioversion if patient is hemodynamically unstable during SVT episodes. [id number] VASc score: 3 points, HAS-BLED score: 2 points. Continue beta-yefri for rate control, therapeutic Lovenox while inpatient and transition back to DOAC prior to discharge. Pending EP consult. Thank you for allowing us to care for this patient. Please call with any questions or concerns. This medical document was created using an electronic medical record system with voice recognition software and computerized dictation system. Although this document has been carefully reviewed, there might still be some phonetic and typographical errors. Occasional wrong-word or ``sound-alike substitutions may have occurred due to the inherent limitations of voice recognition software. These areas are purely typographical due to imperfections of the software programs and do not reflect any compromise in the patient's medical care. Please read the chart carefully and recognize, using context, where these substitutions have occurred. Plan discussed with: Patient Date of Service: Jun 12, 2025 Billing Provider: ARGENIS SLATER Common Visit Codes: [id number] INP/OBS CARE(HIGH) ARGENIS SLATER Jun 12, 2025 14:22
--- NOTE | 2025-06-12 17:44 | DVHPN2 ---
Subjective Patient's stress test is positive for inferior infarct, currently scheduled for coronary angiogram on Saturday. 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 Medications Current Medications Medications Dose Ordered Sig/Mónica Route Start Time Stop Time Status Last Admin Dose Admin Nitroglycerin 0.4 mg Q5MINP PRN SL 06/10/25 20:00 Morphine Sulfate 2 mg Q30M PRN IV 06/10/25 20:00 Gabapentin 300 mg DAILY PO 06/11/25 10:00 06/12/25 08:55 300 MG Metoprolol Tartrate 50 mg BID PO 06/10/25 22:00 06/12/25 08:57 50 MG Sacubitril/ Valsartan 0.5 tab BID PO 06/10/25 22:00 06/12/25 08:55 0.5 TAB Atorvastatin Calcium 40 mg HS PO 06/10/25 22:00 06/10/25 22:23 40 MG Tamsulosin HCl 0.4 mg QPM PO 06/11/25 18:00 06/11/25 18:02 0.4 MG Ondansetron HCl 4 mg Q4HP PRN IV 06/10/25 20:00 Acetaminophen 650 mg Q6HP PRN PO 06/10/25 20:00 Spironolactone 25 mg DAILY PO 06/11/25 10:00 06/12/25 08:54 25 MG Ceftriaxone Sodium 50 ml @ 100 mls/hr DAILY@09 IV 06/12/25 09:00 06/12/25 08:54 100 MLS/HR Enoxaparin Sodium 100 mg Q12HR SC 06/11/25 22:00 06/12/25 08:56 100 MG Laboratory Results Laboratory Tests 06/10/25 16:33 06/11/25 04:45 Urinalysis Test 06/10/25 18:00 Urine Color Light-yellow (Yellow) Urine Clarity Clear (Clear) Urine pH 7.0 (5.0-9.0) Urine Specific [place] 1.013 (1.001-1.035) Urine Protein Trace (Negative) H Urine Ketones Negative (Negative) Urine Blood 1+ /uL (Negative) H Urine Nitrite Negative (Negative) Urine Bilirubin Negative (Negative) Urine Urobilinogen Normal mg/dL (Negative) Urine Leukocyte Esterase 3+ /uL (Negative) Urine RBC 32 /hpf (0 - 3) Urine Microscopic WBC 71 /HPF (0-3) H Urine Squamous Epithelial Cells None seen /hpf (<5) Urine Bacteria None seen /hpf (None Seen) Urine Glucose Normal mg/dL (Normal) Assessment/Plan Assessment/Plan 80-year-old male with a known history of hypertension, dyslipidemia cardiomyopathy with the EF of 35% who initially presented to the hospital as he was sent by outpatient DEXA scan where he is rhythm was found to be irregular found to have 1. Paroxysmal supraventricular tachycardia status post adenosine 3. Chronic congestive heart failure exacerbation with systolic dysfunction 4. NSTEMI type 1 , positive nuclear stress test 5. Chronic tobacco use disorder 6. Dyslipidemia 7. History of colon cancer and prostate cancer -left heart catheterization on Saturday, continue current medications. Plan discussed with: Patient, Spouse Date of Service: Jun 12, 2025 Billing Provider: MADELINE NEWMAN MD Common Visit Codes: [id number] INP/OBS CARE(MOD), [id number] INP/OBS CARE(HIGH) MADELINE NEWMAN MD Jun 12, 2025 17:44
--- NOTE | 2025-06-12 20:07 | DVHINCON2 ---
Date of service: Jun 12, 2025 History of Present Illness HPI The patient is a 80-year-old male who was sent to the emergency department from an outpatient clinic, where he had been scheduled for a DEXA scan. Per chart review, the patients pulse was noted to be in the 200s, and he reported shortness of breath and dizziness. He was subsequently sent to the emergency department, where electrocardiogram demonstrated supraventricular tachycardia (SVT) with a rate of 212 bpm. The rhythm converted to sinus rhythm/sinus tachycardia following administration of adenosine IV and vagal maneuvers. The patient reports experiencing shortness of breath on exertion, dizziness, and generalized weakness for approximately two days prior to presentation, with symptoms occurring only on exertion and relieved by rest. He denies chest pain, orthopnea, paroxysmal nocturnal dyspnea, or shortness of breath at rest. He reports compliance with his medications. The patient had a scheduled follow-up appointment with Dr. Higginbotham on 06/11/2025. Laboratory results revealed high-sensitivity troponin values of 34, 34, 107, and 357, hemoglobin 12.3, potassium 4.2, magnesium 2.2, and creatinine 1.08. Echocardiogram completed on 06/11/2025 showed an ejection fraction of 35%, dilated left ventricle, right ventricular enlargement, and mild mitral regurgitation with no severe valvular abnormalities. Nuclear stress test completed on the same date demonstrated an ejection fraction of 27%, dilated left ventricle, and no evidence of significant ischemia. At present, the patient denies chest pain or shortness of breath but continues to report palpitations. Telemetry review is notable for atrial flutter. Electrophysiology was consulted by cardiology for evaluation and management of tachyarrhythmias. Reported Past Medical History Heart failure with reduced ejection fraction (previously documented at 12%), end-stage dilated cardiomyopathy, ischemic cardiomyopathy, supraventricular tachycardia, non-sustained ventricular tachycardia, paroxysmal atrial fibrillation on Eliquis, prostate cancer, colon cancer, history of tobacco use, and obesity. Echocardiogram (06/11/2025) showed an ejection fraction of 35%, dilated left ventricle, right ventricular enlargement, and mild mitral regurgitation with no severe valvular abnormalities. Nuclear stress test (06/11/2025) demonstrated an ejection fraction of 27%, dilated left ventricle, and no evidence of significant ischemia. Home Meds Active Scripts Magnesium Oxide (MAGNESIUM OXIDE) 400 Mg Tab, 1 TAB PO DAILY for 30 Days, #30 TAB 3 Refills Prov:SALBINO,OCHOA TUBE WASHER 03/19/24 Spironolactone (Aldactone) 25 Mg Tab, 25 MG PO DAILY for 30 Days, #30 TAB 3 Refills Prov:GABRIELA BEY TUBE WASHER 03/19/24 Sacubitril-Valsartan (Entresto 24-26 mg) 1 Tab Tab, 0.5 TAB PO BID for 30 Days, #30 TAB 3 Refills Prov:GABRIELA BEY TUBE WASHER 03/19/24 Metoprolol Tartrate (LOPRESSOR TABLET) 50 Mg Tb, 50 MG PO Q12HR for 30 Days, #60 TAB 3 Refills Prov:GABRIELA BEY TUBE WASHER 03/19/24 Apixaban Base (ELIQUIS) 2.5 Mg Tab, 2.5 MG PO BID for 30 Days, #60 TAB 3 Refills Prov:GABRIELA BEY TUBE WASHER 03/19/24 Reported Medications Gabapentin (Gabapentin) 300 Mg Cap, 400 MG PO DAILY, CAP 12/17/24 Cholecalciferol (D3) 62.5 Mcg Chw, 125 MCG PO DAILY, TAB.CHEW 12/17/24 Cyanocobalamin (B12) 1,000 Mcg/15 Ml Liq, 2500 MCG PO DAILY, LIQ 12/17/24 Clotrimazole (Lotrimin Af) 1 % Cre, 1 APPLIC TOP BID, #24 GRAMS 1 Refill 03/16/24 Diclofenac Sodium (Topical) (Diclofenac Sodium) 1 % Gel, 1 APPLIC TOP BID 03/16/24 Gabapentin (Gabapentin) 400 Mg Cap, 1 TAB PO BID 03/16/24 Tamsulosin Hcl (Tamsulosin Hcl) 0.4 Mg Cap, 1 CAP PO DAILY 03/16/24 Oxybutynin Chloride (Oxybutynin Chloride) 5 Mg Tab, 1 TAB PO BID 03/16/24 Omeprazole (Omeprazole Dr) 20 Mg Cap, 1 CAP PO BID 03/16/24 Simvastatin (Simvastatin) 40 Mg Tab, 1 TAB PO DAILY 03/16/24 Alendronate Sodium (Alendronate Sodium) 70 Mg Tab, 1 TAB PO QWEEKLY 03/16/24 Tramadol Hcl (Tramadol Hcl) 50 Mg Tab, 1 TAB PO Q6HPRN PRN for pain 03/16/24 Past Medical History Patient Family History: Alzheimer's disease G8 MOTHER G8 FATHER Diabetes mellitus G8 MOTHER FH: leukemia G8 FATHER Review of Systems Comments A 14-point review of systems is negative unless otherwise noted in HPI H&P Exam Vital Signs Vital Signs Date Time Temp Pulse Resp B/P (MAP) Pulse Ox O2 Delivery O2 Flow Rate FiO2 06/12/25 17:00 97.7 118 18 94/53 (67) 95 97.7 06/12/25 08:00 Room Air* 0 21 Comments Heart: S1 and S2 present. The patient is tachycardiac, with evidence of Paroxysmal Atrial Flutter on Tele Lungs: Clear to auscultation Abdomen: Benign. Extremities: Distal pulses palpable, 2+. No evidence for peripheral edema Labs/Xrays Labs Test 06/11/25 11:53 06/11/25 04:45 06/10/25 18:00 06/10/25 17:32 Range/Units Prothrombin Time 11.5 9.3-11.8 sec Prothrombin Time INR 1.09 0.9-1.15 Activated Partial Thromboplast Time 31.3 24.5-34.5 SEC Sodium Level 139 136-145 mmol/L Potassium Level 4.2 3.5-5.1 mmol/L Chloride Level 104 98-107 mmol/L Carbon Dioxide Level 26 20-31 mmol/L Anion Gap 9 5-15 Blood Urea Nitrogen 20 9-23 mg/dL Creatinine 1.08 0.700-1.30 mg/dL Glomerular Filtration Rate Calc 70 >90 mL/min BUN/Creatinine Ratio 18.5 10.0-20.0 Serum Glucose 110 H 74-106 mg/dL Calcium Level 9.8 8.7-10.4 mg/dL Magnesium Level 2.2 1.6-2.6 mg/dL Troponin I High Sensitivity 357 *H </=54 ng/L Thyroid Stimulating Hormone (TSH) 0.78 0.55-4.78 uIU/mL Urine Color Light-yellow Yellow Urine Clarity Clear Clear Urine pH 7.0 5.0-9.0 Urine Specific [place] 1.013 1.001-1.035 Urine Protein Trace H Negative Urine Ketones Negative Negative Urine Blood 1+ H Negative /uL Urine Nitrite Negative Negative Urine Bilirubin Negative Negative Urine Urobilinogen Normal Negative mg/dL Urine Leukocyte Esterase 3+ Negative /uL Urine RBC 32 0 - 3 /hpf Urine Microscopic WBC 71 H 0-3 /HPF Urine Squamous Epithelial Cells None seen <5 /hpf Urine Bacteria None seen None Seen /hpf Urine Glucose Normal Normal mg/dL Lactic Acid Level 1.7 0.4-2.0 mmol/L Test 06/10/25 16:33 Range/Units White Blood Count 7.4 4.4-10.8 10^3/uL Red Blood Count 3.75 L 4.5-5.90 10^6/uL Hemoglobin 12.3 L 13.5-17.5 g/dL Hematocrit 36.5 L 41.0-53.0 % Mean Corpuscular Volume 97.1 80.0-100.0 fL Mean Corpuscular Hemoglobin 32.7 H 28.0-32.0 pg Mean Corpuscular Hemoglobin Concent 33.6 32.0-36.0 g/dL Red Cell Distribution Width 14.6 H 11.8-14.3 % Platelet Count 226 140-450 10^3/uL Mean Platelet Volume 8.7 6.9-10.8 fL Neutrophils (%) (Auto) 70.8 37.0-80.0 % Lymphocytes (%) (Auto) 19.7 10.0-50.0 % Monocytes (%) (Auto) 7.9 0.0-12.0 % Eosinophils (%) (Auto) 1.2 0.0-7.0 % Basophils (%) (Auto) 0.4 0.0-2.0 % Neutrophils # (Auto) 5.3 1.6-8.6 10 ^3/uL Lymphocytes # (Auto) 1.5 0.4-5.4 10 ^3/uL Monocytes # (Auto) 0.6 0-1.3 10 ^3/uL Eosinophils # (Auto) 0.1 0-0.8 10 ^3/uL Basophils # (Auto) 0 0-0.2 10 ^3/uL Nucleated Red Blood Cells 0.1 % Total Bilirubin 0.4 0.2-1.0 mg/dL Aspartate Amino Transferase (AST) 28 13-40 U/L Alanine Aminotransferase (ALT) 21 7-40 U/L Alkaline Phosphatase 74 46-116 U/L B-Type Natriuretic Peptide 370.53 0-100 pg/mL Total Protein 7.5 5.7-8.2 g/dL Albumin 4.1 3.2-4.8 g/dL Assessment/Plan Plan Assessment: Combined Systolic/Diastolic heart failure with reduced ejection fraction (EF 35%) Paroxysmal supraventricular tachycardia, status post conversion with adenosine Dilated left ventricle, likely tachycardia-induced cardiomyopathy Atrial flutter with rapid ventricular response Type 2 diabetes mellitus Mild mitral regurgitation Hyperlipidemia Hypertension Recommendations: Given the recent episode of atrial flutter with rapid ventricular response and prior supraventricular tachycardia, ongoing arrhythmia control and rhythm stabilization are warranted. Recommend continuing telemetry monitoring and initiating rate control with metoprolol succinate, titrating as tolerated to achieve adequate heart rate control. A transesophageal echocardiogram (LAUREL) with cardioversion is recommended to restore sinus rhythm and to assess for left atrial thrombus or structural abnormalities prior to cardioversion. 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 Guideline-directed medical therapy for heart failure with reduced EF should be initiated and optimized as tolerated. Anticoagulation with Eliquis 5 mg twice daily is recommended for stroke prevention in the setting of atrial flutter. This will be initiated after scheduled angiogram on 06/14/2025. Electrolyte optimization should be maintained, with potassium above 4.0 and magnesium above 2.0. Repeat echocardiogram is advised following rhythm control to reassess ventricular function and potential improvement in ejection fraction. Plan to follow up post-cardioversion for rhythm assessment and medication adjustment. Proceed with close rate and rhythm surveillance Proceed with close hemodynamic surveillance Proceed with optimized blood pressure control Transfuse to sustain HGB levels above 7.0 Sustain Magnesium level greater than 2.0 Sustain Potassium level greater than 4.0 Follow up renal function and electrolytes Management in Telemetry Will proceed to follow from a EP perspective Further recommendations per clinical progression All available labs, EKGs, and images were personally reviewed Patient's status, findings, and plan of care was discussed and reviewed with supervising physician Dr. Paulino, who is in agreement with current plan of care. Plan of care discussed with and agreed upon by patient/family/Primary RN. Prognosis: Guarded Thank you for allowing me to participate in the care of this patient. Further recommendations will depend on clinical progression, hospitalist, and other consultants. Will continue to follow with Primary. If you have any questions, please do not hesitate to contact me. A total of 75 minutes was spent reviewing the patient record, examining the patient, making a diagnostic and therapeutic plan, discussing this plan with medical personnel, following up on diagnostic studies and following the patient for clinical stability excluding any and all procedures. At least 50% of this time was spent in direct, [id number] contact. Plan discussed with: Patient KRZYSZTOF MEYER NP Jun 12, 2025 20:07
[2025-06-13] VITALS (44 sets, daily range): BP systolic 70–123; BP diastolic 33–94; PULSE 81–121; RESP 12–24; TEMP 97.5–99.3; O2SAT 88–100
--- NOTE | 2025-06-13 05:59 | ECG ---
[facility] Test Date: 2025-06-13 Test Time: 05:49:29 Pat Name: HERO STEWART Department: Room: [address] [place] [address] Gender: M [employer] Supervisor: ELVIRA : 1945 Requested By: MADELINE NEWMAN Order Number: [id number] Reading MD: Bolivar Jacinto Measurements Intervals [place] Rate: 115 P: -88 MN: 147 QRS: -47 QRSD: 103 T: 69 QT: 370 QTc: 512 Interpretive Statements Ectopic atrial tachycardia, unifocal Abnormal R-wave progression, early transition Inferior infarct, old Prolonged QT interval Electronically Signed On 06-14-2025 15:29:50 PDT by Bolivar Jacinto Please click the below link to view image of tracing.
[2025-06-13 06:51] LABS: Anion Gap 10 (5-15); Carbon Dioxide 25 mmol/L (20-31); Chloride 105 mmol/L (98-107); Sodium 140 mmol/L (136-145)
[2025-06-13 06:52] LABS: Calcium 9.7 mg/dL (8.7-10.4)
[2025-06-13 06:53] LABS: Hematocrit 36.3 % (41.0-53.0); Hemoglobin 12.2 g/dL (13.5-17.5); Mean Corpuscular Hemoglobin 32.7 pg (28.0-32.0); Mean Corpuscular Volume 97.8 fL (80.0-100.0); Nucleated Red Blood Cells % 0.1 %
[2025-06-13 06:57] LABS: BUN/Creatinine Ratio 21.1 (10.0-20.0); Glucose 101 mg/dL (74-106)
[2025-06-13 07:00] LABS: Blood Urea Nitrogen 24 mg/dL (9-23); Potassium 3.4 mmol/L (3.5-5.1)
--- NOTE | 2025-06-13 09:57 | DVHPN2 ---
Progress Note - Dictate Date Seen: Jun 13, 2025 Medical Necessity Reason Pt with a Central, PICC or Fol: No Subjective Patient seen and examined at the bedside within Telemetry. Vital signs stable. Chart reviewed. During routine rounding, the patient was noted to be tachycardic in atrial flutter with rapid ventricular response, heart rate approximately 120 bpm. The patient had previously received one oral dose of amiodarone, after which the decision was made to transition to an intravenous amiodarone drip for rhythm control. The primary team is upgrading the patient to the ICU for closer monitoring. Should the patient become hypotensive secondary to the amiodarone drip, recommend Rashaun-Synephrine for blood pressure support as needed. Patient's medications, allergies, past medical, surgical, social and family histories were obtained and reviewed as appropriate. vital signs Vital Sign Date Time Temp Pulse Resp B/P (MAP) Pulse Ox O2 Delivery O2 Flow Rate FiO2 06/13/25 09:00 97.9 116 18 92/65 (74) 100 97.9 06/13/25 08:00 Room Air* 0 21 Total Intake and Output 06/12/25 06/12/25 06/13/25 15:00 23:00 07:00 Intake Total 400 ml 600 ml Output Total 200 ml Balance 400 ml 400 ml medications Current Medications Medications Dose Ordered Sig/Mónica Route Start Time Stop Time Status Last Admin Dose Admin Nitroglycerin 0.4 mg Q5MINP PRN SL 06/10/25 20:00 Morphine Sulfate 2 mg Q30M PRN IV 06/10/25 20:00 Gabapentin 300 mg DAILY PO 06/11/25 10:06/12/25 08:55 300 MG Metoprolol Tartrate 50 mg BID PO 06/10/25 22:00 06/12/25 08:57 50 MG Sacubitril/ Valsartan 0.5 tab BID PO 06/10/25 22:00 06/12/25 22:04 0.5 TAB Atorvastatin Calcium 40 mg HS PO 06/10/25 22:00 06/12/25 22:04 40 MG Tamsulosin HCl 0.4 mg QPM PO 06/11/25 18:00 06/12/25 18:55 0.4 MG Ondansetron HCl 4 mg Q4HP PRN IV 10/23/25 20:00 Acetaminophen 650 mg Q6HP PRN PO 06/10/25 20:00 Spironolactone 25 mg DAILY PO 06/11/25 10:00 06/12/25 08:54 25 MG Ceftriaxone Sodium 50 ml @ 100 mls/hr DAILY@09 IV 06/12/25 09:00 06/12/25 08:54 100 MLS/HR Enoxaparin Sodium 100 mg Q12HR SC 06/11/25 22:00 06/12/25 22:23 100 MG Amiodarone HCl 200 mg Q12HR PO 06/13/25 10:00 laboratory and microbiology Laboratory Tests 06/13/25 06:11 Test 06/13/25 06:11 Range/Units Serum Glucose 101 74-106 mg/dL Assessment/Plan The patient is a 80-year-old male who was sent to the emergency department from an outpatient clinic, where he had been scheduled for a DEXA scan. Per chart review, the patients pulse was noted to be in the 200s, and he reported shortness of breath and dizziness. He was subsequently sent to the emergency department, where electrocardiogram demonstrated supraventricular tachycardia (SVT) with a rate of 212 bpm. The rhythm converted to sinus rhythm/sinus tachycardia following administration of adenosine IV and vagal maneuvers. The patient reports experiencing shortness of breath on exertion, dizziness, and generalized weakness for approximately two days prior to presentation, with symptoms occurring only on exertion and relieved by rest. He denies chest pain, orthopnea, paroxysmal nocturnal dyspnea, or shortness of breath at rest. He reports compliance with his medications. The patient had a scheduled follow-up appointment with Dr. Higginbotham on 06/11/2025. Laboratory results revealed high-sensitivity troponin values of 34, 34, 107, and 357, hemoglobin 12.3, potassium 4.2, magnesium 2.2, and creatinine 1.08. Echocardiogram completed on 06/11/2025 showed an ejection fraction of 35%, dilated left ventricle, right ventricular enlargement, and mild mitral regurgitation with no severe valvular abnormalities. Nuclear stress test completed on the same date demonstrated an ejection fraction of 27%, dilated left ventricle, and no evidence of significant ischemia. At present, the patient denies chest pain or shortness of breath but continues to report palpitations. Telemetry review is notable for atrial flutter. Electrophysiology was consulted by cardiology for evaluation and management of tachyarrhythmias. Reported Past Medical History Heart failure with reduced ejection fraction (previously documented at 12%), end-stage dilated cardiomyopathy, ischemic cardiomyopathy, supraventricular tachycardia, non-sustained ventricular tachycardia, paroxysmal atrial fibrillation on Eliquis, prostate cancer, colon cancer, history of tobacco use, and obesity. Echocardiogram (06/11/2025) showed an ejection fraction of 35%, dilated left ventricle, right ventricular enlargement, and mild mitral regurgitation with no severe valvular abnormalities. Nuclear stress test (06/11/2025) demonstrated an ejection fraction of 27%, dilated left ventricle, and no evidence of significant ischemia. Assessment: Combined Systolic/Diastolic heart failure with reduced ejection fraction (EF 35%) Paroxysmal supraventricular tachycardia, status post conversion with adenosine Dilated left ventricle, likely tachycardia-induced cardiomyopathy Atrial flutter with rapid ventricular response Type 2 diabetes mellitus Mild mitral regurgitation Hyperlipidemia Hypertension Recommendations: Given the recent episode of atrial flutter with rapid ventricular response and prior supraventricular tachycardia, ongoing arrhythmia control and rhythm stabilization are warranted. Recommend continuing telemetry monitoring and initiating rate control with metoprolol succinate, titrating as tolerated to achieve adequate heart rate control. Atrial flutter has been observed on telemetry monitoring. Will initiate rhythm control strategy with amiodarone 200 mg twice daily. A transesophageal echocardiogram (LAUREL) with cardioversion is recommended to restore sinus rhythm and to assess for left atrial thrombus or structural abnormalities prior to cardioversion. Tentatively planned for Saturday with Dr. Paulino. 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 Guideline-directed medical therapy for heart failure with reduced EF should be initiated and optimized as tolerated. Anticoagulation with Eliquis 5 mg twice daily is recommended for stroke prevention in the setting of atrial flutter. This will be initiated after scheduled angiogram on 06/14/2025. Electrolyte optimization should be maintained, with potassium above 4.0 and magnesium above 2.0. Repeat echocardiogram is advised following rhythm control to reassess ventricular function and potential improvement in ejection fraction. Plan to follow up post-cardioversion for rhythm assessment and medication adjustment. Proceed with close rate and rhythm surveillance Proceed with close hemodynamic surveillance Proceed with optimized blood pressure control Transfuse to sustain HGB levels above 7.0 Sustain Magnesium level greater than 2.0 Sustain Potassium level greater than 4.0 Follow up renal function and electrolytes Management in ICU Will proceed to follow from a EP perspective Further recommendations per clinical progression All available labs, EKGs, and images were personally reviewed Patient's status, findings, and plan of care was discussed and reviewed with supervising physician Dr. Paulino, who is in agreement with current plan of care. Plan of care discussed with and agreed upon by patient/family/Primary RN. Prognosis: Guarded Thank you for allowing me to participate in the care of this patient. Further recommendations will depend on clinical progression, hospitalist, and other consultants. Will continue to follow with Primary. If you have any questions, please do not hesitate to contact me. A total of 75 minutes was spent reviewing the patient record, examining the patient, making a diagnostic and therapeutic plan, discussing this plan with medical personnel, following up on diagnostic studies and following the patient for clinical stability excluding any and all procedures. At least 50% of this time was spent in direct, [id number] contact. Plan discussed with: Patient MITCHSHANIKAKARYN NP Jun 13, 2025 09:57
[2025-06-13] MEDS: AMIODARONE HCL 200 MG TAB PO SCH (10:02)
--- NOTE | 2025-06-13 10:22 | DVHPN2 ---
Consult Progress Note Subjective Other Systems: Patient is in atrial fibrillation on library monitor at time of assessment. Denies any cardiac symptoms at this time. Objective vital signs Vital Sign Date Time Temp Pulse Resp B/P (MAP) Pulse Ox O2 Delivery O2 Flow Rate FiO2 06/13/25 09:00 97.9 116 18 92/65 (74) 100 97.9 06/13/25 08:00 Room Air* 0 21 Total Intake and Output 06/12/25 06/12/25 06/13/25 15:00 23:00 07:00 Intake Total 400 ml 600 ml Output Total 200 ml Balance 400 ml 400 ml medications Current Medications Medications Dose Ordered Sig/Mónica Route Start Time Stop Time Status Last Admin Dose Admin Nitroglycerin 0.4 mg Q5MINP PRN SL 06/10/25 20:00 Morphine Sulfate 2 mg Q30M PRN IV 06/10/25 20:00 Gabapentin 300 mg DAILY PO 06/11/25 10:00 06/13/25 10:02 300 MG Metoprolol Tartrate 50 mg BID PO 06/10/25 22:00 06/12/25 08:57 50 MG Sacubitril/ Valsartan 0.5 tab BID PO 06/10/25 22:00 06/13/25 10:02 0.5 TAB Atorvastatin Calcium 40 mg HS PO 06/10/25 22:00 06/12/25 22:04 40 MG Tamsulosin HCl 0.4 mg QPM PO 06/11/25 18:00 06/12/25 18:55 0.4 MG Ondansetron HCl 4 mg Q4HP PRN IV 06/10/25 20:00 Acetaminophen 650 mg Q6HP PRN PO 06/10/25 20:00 Spironolactone 25 mg DAILY PO 06/11/25 10:00 06/13/25 10:02 25 MG Ceftriaxone Sodium 50 ml @ 100 mls/hr DAILY@09 IV 06/12/25 09:00 06/13/25 09:57 100 MLS/HR Enoxaparin Sodium 100 mg Q12HR SC 06/11/25 22:00 06/12/25 22:23 100 MG Amiodarone HCl 200 mg Q12HR PO 06/13/25 10:00 06/13/25 10:02 200 MG Examination: GENERAL:Normal, LUNGS:Normal, CVS:Abnormal (Atrial fibrillation), NEURO:Normal laboratory and microbiology Laboratory Tests 06/13/25 06:11 Test 06/13/25 06:11 Range/Units Serum Glucose 101 74-106 mg/dL Problem List/Assessment/Plan Problem List/Assessment/Plan Paroxysmal SVT Paroxysmal atrial fibrillation/atrial flutter with rapid ventricular rate (on Eliquis) NSTEMI, possibly type 1 Chronic HFrEF, NYHA class III Dyslipidemia History of colon and prostate cancer History of tobacco use Plan/recommendations (): A transthoracic echocardiogram reveals an EF of 35%. Continue guideline directed medical therapy for CHF as tolerated. Hold SGLT2i at this time given UTI. Nuclear stress test reveals inferior infarct, no major ischemia. Results reviewed with . Patient may benefit from coronary angiogram with left heart catheterization. The procedure was discussed with the patient in full detail including risks and benefits. Risks include but are not limited to bleeding, contrast-induced nephropathy, coronary dissection, stroke, and even . The patient understands and is agreeable to undergo the procedure. We will tentatively schedule the patient for coronary angiogram with left heart catheterization on 06/14/2025 with . Recommend vagal maneuver for SVT if hemodynamically stable, give IV adenosine if vagal maneuvers do not terminate SVT. Consider synchronized cardioversion if patient is hemodynamically unstable during SVT episodes. [id number] VASc score: 3 points, HAS-BLED score: 2 points. Continue beta-yefri for rate control, therapeutic Lovenox while inpatient and transition back to DOAC prior to discharge. EP team initiated Amiodarone. Recommend to monitor and replete electrolytes as needed, keep potassium greater than four and magnesium greater than two. Continue with EP consult and recommendations. Continue with close cardiac surveillance and notify cardiology team immediately for any ECG changes. Thank you for allowing us to care for this patient. Please call with any questions or concerns. This medical document was created using an electronic medical record system with voice recognition software and computerized dictation system. Although this document has been carefully reviewed, there might still be some phonetic and typographical errors. Occasional wrong-word or ``sound-alike substitutions may have occurred due to the inherent limitations of voice recognition software. These areas are purely typographical due to imperfections of the software programs and do not reflect any compromise in the patient's medical care. Please read the chart carefully and recognize, using context, where these substitutions have occurred. Plan discussed with: Patient Date of Service: Jun 13, 2025 Billing Provider: ARGENIS SLATER Common Visit Codes: [id number] INP/OBS CARE(HIGH) ARGENIS SLATER Jun 13, 2025 10:22
[2025-06-13] MEDS: LORazepam 2MG/ML-1ML VIAL ONE (12:11)
[2025-06-13] MEDS ORDERED: METOPROLOL TARTRATE 1MG/1ML-5ML VIAL IV ONE (12:27)
[2025-06-13] MEDS: METOPROLOL TARTRATE 1MG/1ML-5ML VIAL IV ONE (12:30)
[2025-06-13] MEDS ORDERED: METOPROLOL TARTRATE 25 MG TAB PO ONE (12:30)
--- NOTE | 2025-06-13 14:06 | RESUS ---
CODE ASSIST ASSESSSMENT Initial Information Code Assist Date: Jun 13, 2025 Code Assist Time: 11:59 Location of Arrest: [facility] Room # 281-B Provider Name Paris Time Notified: 11:59 Time PMD returned call: 12:00 (Bedside) Crash Cart Opened and Supplies: No Situation Staff concerned/worried, speci: HR >130, SBP <90 or 10 from baseli Situation comment: Received call from shelter monitor regarding change in rhythym. Patient went into SVT 240's. Symptomatic c/o dizziness. Family at bedside. Patient remained awake alert and oriented to situation. Upon bedside arrival, provider Paris performed carotid massage with positive outcome. Patient heart rate decreased to 120's. Continued to monitor patient and recurrent episode of SVT 230's at 1218. Carotid massage performed by provider and heart rate ;back to 119. Patient continued to be monitored and asked for assistance to bedside commode, heart rate immediately went into SVT but converted on its own. Decision made to proceed with upgrade to ICU. Background Background: Hx: AFIB, SVT, HTN. Cardiology consult was done and there is plan for left heart cath. Patient and family aware. Assessment Blood Pressure Systolic: 80 (HR 240) Blood Pressure Diastolic: 53 Respiratory Rate: 18 O2 Sat by Pulse Oximetry: 100 Bedside Blood Glucose: 116 Assessment comment: 1205: BP 97/69, HR 120, O2sast 100% via 2l nc 1208: EKG done- SR 1212: BP 107/62, hr 121, O2sat 100% via 2l nc 1216: BP 95/68, HR 124, O2sat 100% via 2l nc 1217: Vannessa Christopher BIOMASS BOILER OPERATOR with cardio at bedside. 1218: SVT 230's- BP 99/60. Patient c/o dizziness. Carotid massage performed by provider. 1221: BP 95/68, HR 119, O2sat 100% via 2l nc 1224: Metoprolol 1.25 mg IVP x1 given per Paris. BP 105/51, hr 119, O2 sat 100% via 2l nc 1230: BP 90/65, HR 119, O2sat 100% via 2l nc 1237: BP 95/66, HR 118, O2sat 100% via 2l nc Recommendations/Interventions Medications and Responses : Medication Time: 12:24 ADULT Medications Given: Metoprolol Route of Administration: IV Heart Rate: 119 EKG Rhythm: Sinus Tachycardia Blood Pressure Systolic: 105 Blood Pressure Diastolic: 51 Respiratory Rate: 18 O2 Sat by Pulse Oximetry: 100 Procedures: Accu check, CMP, CBC, EKG, O2 Mask/NC Other Interventions Magnesium level Outcome Outcome: Transfer to ICU Follow up Report Follow up Report Recurrent episodes of SVT. Patient transferred to ICU room 104 for further care and observation. Team Members Team Members Paris Cadena MD, Vannessa Christopher BIOMASS BOILER OPERATOR, Idalia RN, Kristel RN, Nona RN, Yamile RN, Amanda RN, Nadya Osei RN Jun 13, 2025 14:06
[2025-06-13] MEDS: MAGNESIUM SULFATE 1GM/100ML 100 ML IV ONE (14:46)
[2025-06-13] MEDS: POTASSIUM CHL 20MEQ/100ML 100 ML IV SCH (14:48)
[2025-06-13] MEDS: LIDOCAINE 1% (LOCAL ANESTH.) PF 5ml SDV ID ONE (15:45)
--- NOTE | 2025-06-13 15:51 | DVHPN2 ---
Subjective Patient's stress test is positive for inferior infarct, currently scheduled for coronary angiogram on Saturday. Overnight events noted this morning patient mentioned SVT to 240s, IV metoprolol push was given rapid response team was at bedside eventually patient is be upgraded to ICU for IV amiodarone drip. 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 Medications Current Medications Medications Dose Ordered Sig/Mónica Route Start Time Stop Time Status Last Admin Dose Admin Nitroglycerin 0.4 mg Q5MINP PRN SL 06/10/25 20:00 Morphine Sulfate 2 mg Q30M PRN IV 06/10/25 20:00 Gabapentin 300 mg DAILY PO 06/11/25 10:00 06/13/25 10:02 300 MG Sacubitril/ Valsartan 0.5 tab BID PO 06/10/25 22:00 06/13/25 10:02 0.5 TAB Atorvastatin Calcium 40 mg HS PO 06/10/25 22:00 06/12/25 22:04 40 MG Tamsulosin HCl 0.4 mg QPM PO 06/11/25 18:00 06/12/25 18:55 0.4 MG Ondansetron HCl 4 mg Q4HP PRN IV 06/10/25 20:00 Acetaminophen 650 mg Q6HP PRN PO 06/10/25 20:00 Spironolactone 25 mg DAILY PO 06/11/25 10:00 06/13/25 10:02 25 MG Ceftriaxone Sodium 50 ml @ 100 mls/hr DAILY@09 IV 06/12/25 09:00 06/13/25 09:57 100 MLS/HR Enoxaparin Sodium 100 mg Q12HR SC 06/11/25 22:00 06/12/25 22:23 100 MG Potassium Chloride 100 ml @ 50 mls/hr Q2H IV 06/13/25 12:30 06/13/25 18:29 06/13/25 14:48 50 MLS/HR Metoprolol Tartrate 50 mg BID PO 06/13/25 22:00 Amiodarone HCl 250 ml @ 16.66 mls/ hr Q15H1M IV 06/13/25 21:00 Sodium Chloride 10 ml QSHIFT@10,22 IV 06/13/25 22:00 UNV Laboratory Results Laboratory Tests 06/13/25 06:11 Chemistry Test 06/13/25 06:11 Calcium Level 9.7 mg/dL (8.7-10.4) Magnesium Level 2.0 mg/dL (1.6-2.6) Urinalysis Test 06/10/25 18:00 Urine Color Light-yellow (Yellow) Urine Clarity Clear (Clear) Urine pH 7.0 (5.0-9.0) Urine Specific [place] 1.013 (1.001-1.035) Urine Protein Trace (Negative) H Urine Ketones Negative (Negative) Urine Blood 1+ /uL (Negative) H Urine Nitrite Negative (Negative) Urine Bilirubin Negative (Negative) Urine Urobilinogen Normal mg/dL (Negative) Urine Leukocyte Esterase 3+ /uL (Negative) Urine RBC 32 /hpf (0 - 3) Urine Microscopic WBC 71 /HPF (0-3) H Urine Squamous Epithelial Cells None seen /hpf (<5) Urine Bacteria None seen /hpf (None Seen) Urine Glucose Normal mg/dL (Normal) Assessment/Plan Assessment/Plan 80-year-old male with a known history of hypertension, dyslipidemia cardiomyopathy with the EF of 35% who initially presented to the hospital as he was getting his outpatient DEXA scan when he was found to have a irregular rhythm was sent to ER. 1. Multiple episodes of Paroxysmal supraventricular tachycardia status post adenosine, status post IV metoprolol, started on IV amiodarone drip 3. Chronic congestive heart failure exacerbation with systolic dysfunction 4. NSTEMI type 1 , positive nuclear stress test 5. Chronic tobacco use disorder 6. Dyslipidemia 7. History of colon cancer and prostate cancer -upgraded to ICU, IV amiodarone drip, therapeutic Lovenox for primary prevention of stroke because of paroxysmal AFib -left heart catheterization on Saturday, continue current medications. Plan discussed with: Patient Date of Service: Jun 13, 2025 Billing Provider: MADELINE NEWMAN MD Common Visit Codes: [id number] INP/OBS CARE(HIGH) MADELINE NEWMAN MD Jun 13, 2025 15:51
--- NOTE | 2025-06-13 16:26 | DVH ---
CHEST RADIOGRAPH Indication: PICC LINE PLACEMENT. STAT PLEASE Technique: Single frontal view of the chest was obtained Comparison: XY CHEST PORTABLE on DOS: 06/10/25, XY CHEST PORTABLE on DOS: 03/15/24 FINDINGS: Lines and Tubes: None Lungs: No focal consolidation. Pleura: No effusion. No pneumothorax. Cardiomediastinal contours: Unremarkable Bones: No acute osseous abnormality. IMPRESSION: 1. No acute cardiopulmonary disease. 2. Slight increased density in the upper lung toussaint bilaterally compared to 06/10/2025. This may be secondary to patient positioning.
[2025-06-13] MEDS ORDERED: METOPROLOL SUCCINATE XL 50 MG TAB PO ONE (21:30)
[2025-06-13] MEDS: PHENYLEPHRINE IV 250 ML IV SCH (21:35)
[2025-06-13] MEDS: SODIUM CHLOR 0.9% PF (SALINE LOCK) 10ML VIAL/SYR IV SCH (21:39)
[2025-06-13] MEDS: METOPROLOL TARTRATE 50 MG TAB PO SCH (21:57)
[2025-06-14] VITALS (96 sets, daily range): BP systolic 58–131; BP diastolic 27–85; PULSE 74–111; RESP 10–25; TEMP 97.9–98.2; O2SAT 88–100
[2025-06-14 03:41] LABS: Anion Gap 8 (5-15); Calcium 9.5 mg/dL (8.7-10.4); Carbon Dioxide 25 mmol/L (20-31); Potassium 4.1 mmol/L (3.5-5.1); Sodium 141 mmol/L (136-145)
[2025-06-14 03:47] LABS: BUN/Creatinine Ratio 20.2 (10.0-20.0); Blood Urea Nitrogen 21 mg/dL (9-23); Glucose 101 mg/dL (74-106); Magnesium 2.1 mg/dL (1.6-2.6)
[2025-06-14 03:54] LABS: Chloride 108 mmol/L (98-107)
[2025-06-14 03:56] LABS: Hematocrit 33.5 % (41.0-53.0); Hemoglobin 11.2 g/dL (13.5-17.5); Mean Corpuscular Hemoglobin 32.6 pg (28.0-32.0); Mean Corpuscular Volume 97.4 fL (80.0-100.0); Nucleated Red Blood Cells % 0.1 %
--- NOTE | 2025-06-14 07:26 | DVH ---
INDICATION: dizzy, tachy TECHNIQUE: Frontal view of the chest. COMPARISON: XY CHEST PORTABLE on DOS: 03/15/24 FINDINGS: . The heart and mediastinal contours are grossly unremarkable. There is no evidence of pleural disease. The lungs are clear. The bony structures of the chest are intact without fracture. IMPRESSION: 1. No evidence of acute disease. 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
--- NOTE | 2025-06-14 08:15 | ECG ---
[facility] Test Date: 2025-06-13 Test Time: 12:07:50 Pat Name: HERO STEWART Department: Room: [address] [place] [address] A Gender: M Control Officer Manager: : [id number] Requested By: MIRNA SILVESTRE Order Number: [id number] Reading MD: Bolivar Jacinto Measurements Intervals [place] Rate: 120 P: 262 VT: 113 QRS: -39 QRSD: 115 T: 110 QT: 356 QTc: 503 Interpretive Statements Ectopic atrial tachycardia, unifocal Nonspecific IVCD with LAD Inferior infarct, old Lateral leads are also involved Baseline wander in lead(s) V3,V5 Electronically Signed On 06-14-2025 15:30:07 PDT by Bolivar Jacinto Please click the below link to view image of tracing.
[2025-06-14] MEDS: IODIXANOL 320MG/ML 100ML BTL IV ONE (09:02)
[2025-06-14] MEDS: fentaNYL CITRATE 100 MCG/2 ML VL ONE (09:18)
[2025-06-14] MEDS: HEPARIN SODIUM (PORCINE) 5000 UNITS/ML 1ML VIAL ONE (09:18)
[2025-06-14] MEDS: ANGIOMAX 250 MG VIAL IV ONE (09:18)
[2025-06-14] MEDS: VERAPAMIL 2.5MG/ML INJ 2ML VIAL IV ONE (09:18)
[2025-06-14] MEDS: SODIUM CHL 0.9% 0 ML ONE (09:19)
[2025-06-14] MEDS: LIDOCAINE 2%HCL (LOCAL ANESTH.) INJ 20ML MDV ONE (09:19)
[2025-06-14] MEDS: MIDAZOLAM HCL 2MG/2ML 2ml VIAL (1mg/ml) ONE (09:19)
--- NOTE | 2025-06-14 09:36 | DVHPN2 ---
Progress Note Date Seen: Jun 14, 2025 Medical Necessity Reason Pt with a Central, PICC or Fol: No Subjective Patient reports: Feels better Other Systems: sp cath in a regular tach now at 110 Objective vital signs Vital Sign Date Time Temp Pulse Resp B/P (MAP) Pulse Ox O2 Delivery O2 Flow Rate FiO2 06/14/25 08:45 110 20 101/77 (85) 98 06/14/25 08:00 Nasal Cannula* 2 28 06/14/25 08:00 98.2 98.2 Total Intake and Output 06/13/25 06/13/25 06/14/25 15:00 23:00 07:00 Intake Total 280 ml 1046.17 ml 1264.73 ml Output Total 600 ml Balance 280 ml 1046.17 ml 664.73 ml medications Current Medications Medications Dose Ordered Sig/Mónica Route Start Time Stop Time Status Last Admin Dose Admin Nitroglycerin 0.4 mg Q5MINP PRN SL 06/10/25 20:00 Morphine Sulfate 2 mg Q30M PRN IV 06/10/25 20:00 Gabapentin 300 mg DAILY PO 06/11/25 10:00 06/13/25 10:02 300 MG Sacubitril/ Valsartan 0.5 tab BID PO 06/10/25 22:00 06/13/25 21:57 0.5 TAB Atorvastatin Calcium 40 mg HS PO 06/10/25 22:00 06/13/25 21:36 40 MG Tamsulosin HCl 0.4 mg QPM PO 06/11/25 18:00 06/13/25 17:16 0.4 MG Ondansetron HCl 4 mg Q4HP PRN IV 06/10/25 20:00 Acetaminophen 650 mg Q6HP PRN PO 06/10/25 20:00 Spironolactone 25 mg DAILY PO 06/11/25 10:00 06/13/25 10:02 25 MG Ceftriaxone Sodium 50 ml @ 100 mls/hr DAILY@09 IV 06/12/25 09:00 06/13/25 09:57 100 MLS/HR Metoprolol Tartrate 50 mg BID PO 06/13/25 22:00 06/13/25 21:57 50 MG Amiodarone HCl 250 ml @ 16.66 mls/ hr Q15H1M IV 06/13/25 21:00 06/14/25 01:24 16.66 MLS/HR Sodium Chloride 10 ml QSHIFT@10,22 IV 06/13/25 22:00 06/13/25 21:39 10 ML Phenylephrine HCl 250 ml @ 30 mls/hr Q8H20M IV 06/13/25 18:15 06/14/25 04:10 86.25 MLS/HR Examination: GENERAL:Abnormal, HEENT:Abnormal, LUNGS:Abnormal, CVS:Abnormal, ABDOMEN:Abnormal laboratory and microbiology Laboratory Tests 06/14/25 03:08 Test 06/14/25 03:08 Range/Units Serum Glucose 101 74-106 mg/dL Problem List/Assessment/Plan Problem List/Assessment/Plan Paroxysmal SVT Paroxysmal atrial fibrillation/atrial flutter with rapid ventricular rate (on Eliquis) NSTEMI, possibly type 1 Chronic HFrEF, NYHA class III Dyslipidemia History of colon and prostate cancer History of tobacco use Plan/recommendations (): A transthoracic echocardiogram reveals an EF of 35%. Continue guideline directed medical therapy for CHF as tolerated. Hold SGLT2i at this time given UTI. Nuclear stress test reveals inferior infarct, no major ischemia. Results reviewed with . Patient may benefit from coronary angiogram with left heart catheterization. The procedure was discussed with the patient in full detail including risks and benefits. Risks include but are not limited to bleeding, contrast-induced nephropathy, coronary dissection, stroke, and even . The patient understands and is agreeable to undergo the procedure. We will tentatively schedule the patient for coronary angiogram with left heart catheterization on 06/14/2025 with . Recommend vagal maneuver for SVT if hemodynamically stable, give IV adenosine if vagal maneuvers do not terminate SVT. Consider synchronized cardioversion if patient is hemodynamically unstable during SVT episodes. [id number] VASc score: 3 points, HAS-BLED score: 2 points. Continue beta-yefri for rate control, therapeutic Lovenox while inpatient and transition back to DOAC prior to discharge. EP team initiated Amiodarone. Recommend to monitor and replete electrolytes as needed, keep potassium greater than four and magnesium greater than two. Continue with EP consult and recommendations. Continue with close cardiac surveillance and notify cardiology team immediately for any ECG changes. Thank you for allowing us to care for this patient. Please call with any questions or concerns. cath shows no severe cad LV dysfunctoin on low dose yan start GDMT when feasible ep consult ongoing ,cont AAD per EP resume heparin/lovenox when feasible wean off pressors Plan discussed with: Patient My Orders My Orders Orders - NILES FIGUEROA MD Procedure Category Date Status Time Cl Left Heart Cath CL 06/14/25 Taken 08:03 Date of Service: Jun 14, 2025 Billing Provider: NILES FIGUEROA MD Common Visit Codes: NOT BILLABLE NILES FIGUEROA MD Jun 14, 2025 09:36
--- NOTE | 2025-06-14 09:38 | DVHOP2 ---
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 PREOPERATIVE DIAGNOSES: severe chf, abnormal spect, nstemi POSTOP DIAGNOSIS: NICM DESCRIPTION OF PROCEDURE: The patient or appropriate family signed informed consent understanding the risks, benefits and alternatives of the procedure, they wished to proceed. The patient was brought to the cardiac labor relations officer in n.p.o. state. The patient was prepped in a sterile fashion. Sedation was used per cardiac cath protocol. I administered 2 mL of 2% lidocaine to the right wrist. With an antegrade front wall puncture. I cannulated the right radial artery and placed a 6-Hebrew Glidesheath slender. Next, an intra-arterial spasmolytic was administered. Next, a - 5French [place] catheter and pigtail were used for coronary angiogram and LVEDP measurement and pressure pullback. At the completion of procedure, all guides and wires were removed, and there were no immediate complications. FINDINGS: RCA: Moderate vessel off the right sinus of Valsalva, there is no severe flow limiting stenosis. LEFT MAIN: Moderate size left main, it bifurcates into LAD and circumflex. no stenosis CIRCUMFLEX: Moderate caliber vessel coming off the left main with no flow limiting stenosis. LAD: LAD is a moderate caliber vessel coming of the left main. no stenosis LVEDP of 14 mmhg CONCLUSIONS: 1. no severe cad PLAN: Aggressive risk factor modification and medical management for the patient. NILES FIGUEROA MD Jun 14, 2025 09:38
[2025-06-14] MEDS: CHOLESTYRAMINE 4 GM POWDER PO SCH (14:15)
--- NOTE | 2025-06-14 16:51 | DVHPNRES ---
Progress Note Date Seen: Jun 15, 2025 Resident Creating Document: EUGENE RANGEL RESIDENT Medical Necessity Reason Pt with a Central, PICC or Fol: No Subjective Review of Systems 80-year-old male was sent to the ER from outpatient clinic where he was scheduled to get a DEXA scan. Per chart review, patient's pulse was in 200s, and he was reporting shortness of breaths, and dizziness therefore he was sent to the ER where patient was diagnosed to be SVT and consequently adenosine IV and vagal maneuvers were administered which was successful in converting him to sinus rhythm. Patient reports that he has been experiencing shortness of breaths on exertion, dizziness on exertion, generalized weakness for the past 2 days, only on exertion and relieved on rest. He denies any chest pain, shortness of breaths at rest, orthopnea, PND, any other GI or complaints. Denies fever or chills. He reports compliance to his medications. Patient had an appointment with Dr. Jacinto on 06/11/2025. Past medical history: HFrEF-12%, end-stage dilated cardiomyopathy-? history of SVT and NSVT, paroxysmal AFib on Eliquis, prostate cancer, colon cancer, history of tobacco use, obesity, hypertension, hyperlipidemia Past surgical history: Reports possible left heart catheterization 6 years back in [place]-no ANN Home medications: Entresto, metoprolol tartrate 50 mg b.i.d., spironolactone 25 mg daily, Eliquis 2.5 mg b.i.d., tamsulosin Social history: Quit smoking 1984, smoked 15 years a pack a day, denies drinking or drug use, lives in [place] with the and niece 06/15/2025:Patient seen and examined at bedside. On phenylephrine and amiodarone drip. continue to be have a fib. plan for cardioversion with warren tomorrow. no chest pain , fever or sob. Objective vital signs Vital Sign Date Time Temp Pulse Resp B/P (MAP) Pulse Ox O2 Delivery O2 Flow Rate FiO2 06/14/25 14:00 22 95 Nasal Cannula* 2 28 06/14/25 14:00 107 06/14/25 13:45 104/70 (81) 06/14/25 12:00 98.0 98.0 Total Intake and Output 06/13/25 06/13/25 06/14/25 15:00 23:00 07:00 Intake Total 280 ml 1046.17 ml 1264.73 ml Output Total 600 ml Balance 280 ml 1046.17 ml 664.73 ml medications Current Medications Medications Dose Ordered Sig/Mónica Route Start Time Stop Time Status Last Admin Dose Admin Nitroglycerin 0.4 mg Q5MINP PRN SL 06/10/25 20:00 Morphine Sulfate 2 mg Q30M PRN IV 06/10/25 20:00 Gabapentin 300 mg DAILY PO 06/11/25 10:00 06/14/25 11:11 300 MG Atorvastatin Calcium 40 mg HS PO 06/10/25 22:00 06/13/25 21:36 40 MG Tamsulosin HCl 0.4 mg QPM PO 06/11/25 18:00 06/13/25 17:16 0.4 MG Ondansetron HCl 4 mg Q4HP PRN IV 06/10/25 20:00 Acetaminophen 650 mg Q6HP PRN PO 06/10/25 20:00 Spironolactone 25 mg DAILY PO 06/11/25 10:00 06/13/25 10:02 25 MG Ceftriaxone Sodium 50 ml @ 100 mls/hr DAILY@09 IV 06/12/25 09:00 06/14/25 11:10 100 MLS/HR Metoprolol Tartrate 50 mg BID PO 06/13/25 22:00 06/14/25 11:20 50 MG Amiodarone HCl 250 ml @ 16.66 mls/ hr Q15H1M IV 06/13/25 21:00 06/14/25 01:24 16.66 MLS/HR Sodium Chloride 10 ml QSHIFT@10,22 IV 06/13/25 22:00 06/14/25 10:51 10 ML Phenylephrine HCl 250 ml @ 30 mls/hr Q8H20M IV 06/13/25 18:15 06/14/25 04:10 86.25 MLS/HR Cholestyramine Resin 4 gm Q12HR@11,23 PO 06/14/25 14:15 Enoxaparin Sodium 100 mg Q12HR SC 06/14/25 22:00 Cancel Enoxaparin Sodium 110 mg Q12HR SC 06/14/25 22:00 Examination General Appearance: Cooperative. Well developed. Well nourished. NAD Head Exam: Normal inspection Neck Exam: Normal inspection. Non-tender. Normal alignment Pulmonary/Respiratory: Chest non-tender. Clear bilateral breath sounds Cardiovascular/Chest: Irregular rhythm, heart rate 92-100 per minute. No murmurs. No JVD. Peripheral Pulses: 2+ Radial (R). 2+ Radial (L). 2+ Pedal (R). 2+ Pedal (L) Abdominal Exam: Normal bowel sounds. Soft. Nontender. No hepatospenomegaly. No masses Ankle Exam: Negative ankle edema Lower extremities: Negative lower extremity edema Neuro/Mental Status: A&O x4. Coherent Thoughts/Psych: Normal thought pattern. Appropriate mood and affect. Good judgement and insight Appearance: In no acute distress Skin Exam: Normal inspection. Normal color. Warm. Dry laboratory and microbiology Laboratory Tests 06/14/25 03:08 Test 06/14/25 03:08 Range/Units Serum Glucose 101 74-106 mg/dL Microbiology Date/Time Source Procedure Growth Status 06/14/25 00:30 Stool Stool Culture - Preliminary Resulted 06/14/25 00:30 Stool Shiga Toxin I & II - Final Resulted Problem List/Assessment/Plan Problem List/Assessment/Plan Cardiology Acute on chronic HFrEF SVT converted to atrial fibrillation Paroxysmal atrial fibrillation Nonischemic cardiomyopathy NSTEMI type 2 likely due to CHF Hypertension -stress test on 06/11/2025:inferior infarct -coronary angiogram on 06/14/2025: No CVA coronary artery disease nonischemic cardiomyopathy. Ejection fraction 35%. -amiodarone drip -anticoagulation with enoxaparin 110 mg b.i.d. subQ -currently on phenylephrine, titrated off. -echocardiogram:lvef 35,dilated LV ,RV enlarged ,no severe valve abnormalities noted ,mild mitral regurg -maintain magnesium greater than 2 -maintain potassium greater than 4 -cardiology and EP: Possible warren with cardioversion -NPO -GDMT: Continue metoprolol tartrate 50 mg p.o. b.i.d. , spironolactone 25 mg p.o. daily. Hold Entresto given low blood pressure. Requiring vasopressor. Respiratory Acute hypoxic respiratory failure -on 2 L oxygen via nasal cannula -chest x-ray: Mild prominence bronchovascular marking. No pleural effusion Nephrology ROD due to VMN: Improving. -creatinine o 1.32, 1.14 -continue to monitor renal function. /GI Septic shock due to UTI -urinalysis showed leukocyte esterase positive, WBC, blood 1+. -ceftriaxone -urine culture -IV vasopressor: Titrate off vasopressor. Target map 65 BPH History of prostate cancer -tamsulosin 0.4 mg p.o. daily. H/O colon cancer. Hematology Anemia of chronic disease -hemoglobin 11.2 Secondary hypercoagulable due to atrial fibrillation -anticoagulation with Lovenox 1 mg/kg b.i.d.. Endocrine Dyslipidemia -atorvastatin 40 mg p.o. daily PUD: Protonix DVT: Lovenox Critical care time spent 84 minutes Plan discussed with daughter and patient at bed side. Plan discussed with Dr Fabian Plan discussed with: Patient, Daughter, Other (RN) My Orders My Orders Orders - EUGENE RANGEL Procedure Category Date Status Time Urine Bacterial YAEL 06/14/25 Uncollected Culture 15:38 Enoxaparin Sodium PHA 06/14/25 In Process (Lovenox) 22:00 Dietary Evaluation Review Comments: 1. Resume 2GNA diet after procedures 2. Monitor PO intakes to meet 75% of his needs 3. Wt management desrible upon D/C Expected Outcomes/Goals: Gradual Wt loss Off Drugs that affect his GI function Date of Service: Jun 14, 2025 Billing Provider: POORNIMA GUY MD Common Visit Codes: [id number] CARE 30-74 MIN, [id number] CARE-EACH +30MIN EUGENE RANGEL Jun 14, 2025 16:51 POORNIMA GUY MD Jun 15, 2025 14:15
--- NOTE | 2025-06-14 18:50 | DVHPN2 ---
Progress Note - Dictate Date Seen: Jun 14, 2025 Medical Necessity Reason Pt with a Central, PICC or Fol: No vital signs Vital Sign Date Time Temp Pulse Resp B/P (MAP) Pulse Ox O2 Delivery O2 Flow Rate FiO2 06/14/25 18:00 99 06/14/25 18:00 16 97 Room Air* 0 21 06/14/25 17:45 108/75 06/14/25 12:00 98.0 98.0 Total Intake and Output 06/13/25 06/13/25 06/14/25 15:00 23:00 07:00 Intake Total 280 ml 1046.17 ml 1264.73 ml Output Total 600 ml Balance 280 ml 1046.17 ml 664.73 ml medications Current Medications Medications Dose Ordered Sig/Mnóica Route Start Time Stop Time Status Last Admin Dose Admin Nitroglycerin 0.4 mg Q5MINP PRN SL 06/10/25 20:00 Morphine Sulfate 2 mg Q30M PRN IV 06/10/25 20:00 Gabapentin 300 mg DAILY PO 06/11/25 10:00 06/14/25 11:11 300 MG Atorvastatin Calcium 40 mg HS PO 06/10/25 22:00 06/13/25 21:36 40 MG Tamsulosin HCl 0.4 mg QPM PO 06/11/25 18:00 06/14/25 17:48 0.4 MG Ondansetron HCl 4 mg Q4HP PRN IV 06/10/25 20:00 Acetaminophen 650 mg Q6HP PRN PO 06/10/25 20:00 Spironolactone 25 mg DAILY PO 06/11/25 10:00 06/13/25 10:02 25 MG Ceftriaxone Sodium 50 ml @ 100 mls/hr DAILY@09 IV 06/12/25 09:00 06/14/25 11:10 100 MLS/HR Metoprolol Tartrate 50 mg BID PO 06/13/25 22:00 06/14/25 11:20 50 MG Amiodarone HCl 250 ml @ 16.66 mls/ hr Q15H1M IV 06/13/25 21:00 06/14/25 01:24 16.66 MLS/HR Sodium Chloride 10 ml QSHIFT@10,22 IV 06/13/25 22:00 06/14/25 10:51 10 ML Phenylephrine HCl 250 ml @ 30 mls/hr Q8H20M IV 06/13/25 18:15 06/14/25 04:10 86.25 MLS/HR Cholestyramine Resin 4 gm Q12HR@11,23 PO 06/14/25 14:15 Enoxaparin Sodium 100 mg Q12HR SC 06/14/25 22:00 Cancel Enoxaparin Sodium 110 mg Q12HR SC 06/14/25 22:00 laboratory and microbiology Laboratory Tests 06/14/25 03:08 Test 06/14/25 03:08 Range/Units Serum Glucose 101 74-106 mg/dL Assessment/Plan The patient is a 80-year-old male who was sent to the emergency department from an outpatient clinic, where he had been scheduled for a DEXA scan. Per chart review, the patients pulse was noted to be in the 200s, and he reported shortness of breath and dizziness. He was subsequently sent to the emergency department, where electrocardiogram demonstrated supraventricular tachycardia (SVT) with a rate of 212 bpm. The rhythm converted to sinus rhythm/sinus tachycardia following administration of adenosine IV and vagal maneuvers. The patient reports experiencing shortness of breath on exertion, dizziness, and generalized weakness for approximately two days prior to presentation, with symptoms occurring only on exertion and relieved by rest. He denies chest pain, orthopnea, paroxysmal nocturnal dyspnea, or shortness of breath at rest. He reports compliance with his medications. The patient had a scheduled follow-up appointment with Dr. Higginbotham on 06/11/2025. Laboratory results revealed high-sensitivity troponin values of 34, 34, 107, and 357, hemoglobin 12.3, potassium 4.2, magnesium 2.2, and creatinine 1.08. Echocardiogram completed on 06/11/2025 showed an ejection fraction of 35%, dilated left ventricle, right ventricular enlargement, and mild mitral regurgitation with no severe valvular abnormalities. Nuclear stress test completed on the same date demonstrated an ejection fraction of 27%, dilated left ventricle, and no evidence of significant ischemia. At present, the patient denies chest pain or shortness of breath but continues to report palpitations. Telemetry review is notable for atrial flutter. Electrophysiology was consulted by cardiology for evaluation and management of tachyarrhythmias. Reported Past Medical History Heart failure with reduced ejection fraction (previously documented at 12%), end-stage dilated cardiomyopathy, ischemic cardiomyopathy, supraventricular tachycardia, non-sustained ventricular tachycardia, paroxysmal atrial fibrillation on Eliquis, prostate cancer, colon cancer, history of tobacco use, and obesity. Echocardiogram (06/11/2025) showed an ejection fraction of 35%, dilated left ventricle, right ventricular enlargement, and mild mitral regurgitation with no severe valvular abnormalities. Nuclear stress test (06/11/2025) demonstrated an ejection fraction of 27%, dilated left ventricle, and no evidence of significant ischemia. Cardiac Catheterization: (06/14/2025) RCA: Moderate vessel off the right sinus of Valsalva, there is no severe flow limiting stenosis. LEFT MAIN: Moderate size left main, it bifurcates into LAD and circumflex. no stenosis. CIRCUMFLEX: Moderate caliber vessel coming off the left main with no flow limiting stenosis. LAD: LAD is a moderate caliber vessel coming of the left main. no stenosis. LVEDP of 14 mmhg. CONCLUSIONS: 1. no severe cad Assessment: Non-ischemic cardiomyopathy, likely tachyarrhythmia induced Acute Systolic/Diastolic heart failure with reduced ejection fraction (EF 35%) Paroxysmal supraventricular tachycardia, status post conversion with adenosine Paroxysmal atrial fibrillation/flutter with rapid ventricular response Dilated left ventricle, likely tachycardia-induced cardiomyopathy Type 2 diabetes mellitus Mild mitral regurgitation Hyperlipidemia Hypertension Electrophysiology Suggestions for Management: Cardiac catheterization revealed no indication warranted for coronary revascularization 06/14/2025 Recognizing continued atrial flutter despite continuous amiodarone infusion, plan for LAUREL DCCV 06/15/[address] Barry, to be consented and NPO status at midnight Recognizing acutely reduced LVEF of 35%, recommend obtaining Life Vest prior to discharge for primary prevention against sudden cardiac Proceed with Amiodarone infusion as for now for rhythm control of PAF/Flutter as for now Continuation of AC for CVA prophylaxis of PAF/Flutter is advised On therapeutic Lovenox for now, transition to DOAC upon DC Proceed with GDMT as per interventional cardiology services Follow up interventional cardiology recommendations Will proceed to follow from EP perspective Proceed with close rate and rhythm surveillance Proceed with close hemodynamic surveillance Proceed with optimized blood pressure control Transfuse to sustain HGB levels above 7.0 Sustain Magnesium level greater than 2.0 Sustain Potassium level greater than 4.0 Follow up renal function and electrolytes Management in ICU Will proceed to follow from a EP perspective Further recommendations per clinical progression All available labs, EKGs, and images were personally reviewed Patient's status, findings, and plan of care was discussed and reviewed with supervising physician Dr. Paulino, who is in agreement with current plan of care. Plan of care discussed with and agreed upon by patient/family/Primary RN. Prognosis: Guarded Thank you for allowing me to participate in the care of this patient. Further recommendations will depend on clinical progression, hospitalist, and other consultants. Will continue to follow with Primary. If you have any questions, please do not hesitate to contact me. A total of 75 minutes was spent reviewing the patient record, examining the patient, making a diagnostic and therapeutic plan, discussing this plan with medical personnel, following up on diagnostic studies and following the patient for clinical stability excluding any and all procedures. At least 50% of this time was spent in direct, [id number] contact. Dietary Evaluation Review Comments: 1. Resume 2GNA diet after procedures 2. Monitor PO intakes to meet 75% of his needs 3. Wt management desrible upon D/C Expected Outcomes/Goals: Gradual Wt loss Off Drugs that affect his GI function Plan discussed with: Patient (patient and primary rn ) MAI DELGADILLO Jun 14, 2025 18:50
[2025-06-14] MEDS: ENOXAPARIN SOD 120 MG/0.8 ML SYRINGE SC SCH (21:29)
[2025-06-14] MEDS ORDERED: ENOXAPARIN SOD 100 MG/1 ML SYRINGE SC SCH (22:00)
[2025-06-15] VITALS (94 sets, daily range): BP systolic 84–148; BP diastolic 50–100; PULSE 68–110; RESP 9–26; TEMP 97.7–98.7; O2SAT 86–100
[2025-06-15] MEDS: fentaNYL CITRATE 100 MCG/2 ML VL IV ONE (11:00)
[2025-06-15] MEDS: LIDOCAINE VISCOUS 2% 15ML UD PO ONE (11:00)
[2025-06-15] MEDS: MIDAZOLAM HCL 2MG/2ML 2ml VIAL (1mg/ml) IV ONE (11:00)
[2025-06-15 11:02] LABS: Hematocrit 48.0 % (41.0-53.0); Hemoglobin 16.3 g/dL (13.5-17.5); Mean Corpuscular Hemoglobin 32.9 pg (28.0-32.0); Mean Corpuscular Volume 96.8 fL (80.0-100.0); Nucleated Red Blood Cells % 0.1 %
[2025-06-15 11:13] LABS: Anion Gap 8 (5-15); Carbon Dioxide 24 mmol/L (20-31); Potassium 4.0 mmol/L (3.5-5.1); Sodium 139 mmol/L (136-145)
[2025-06-15 11:14] LABS: Calcium 9.0 mg/dL (8.7-10.4)
[2025-06-15 11:19] LABS: BUN/Creatinine Ratio 14.4 (10.0-20.0); Blood Urea Nitrogen 13 mg/dL (9-23); Glucose 90 mg/dL (74-106)
[2025-06-15 11:26] LABS: Chloride 107 mmol/L (98-107)
--- NOTE | 2025-06-15 11:58 | DVHPN2 ---
Progress Note Date Seen: Jun 15, 2025 Medical Necessity Reason Pt with a Central, PICC or Fol: No Subjective Patient reports: Feels better Objective vital signs Vital Sign Date Time Temp Pulse Resp B/P (MAP) Pulse Ox O2 Delivery O2 Flow Rate FiO2 06/15/25 10:30 110 21 110/74 (86) 98 06/15/25 10:00 Room Air* 0 21 06/15/25 08:00 97.7 97.7 Total Intake and Output 06/14/25 06/14/25 06/15/25 14:59 22:59 06:59 Intake Total 270 ml 424.14 ml 1070.78 ml Output Total 550 ml 500 ml Balance 270 ml -125.86 ml 570.78 ml medications Current Medications Medications Dose Ordered Sig/Mónica Route Start Time Stop Time Status Last Admin Dose Admin Nitroglycerin 0.4 mg Q5MINP PRN SL 06/10/25 20:00 Morphine Sulfate 2 mg Q30M PRN IV 06/10/25 20:00 Gabapentin 300 mg DAILY PO 06/11/25 10:00 06/14/25 11:11 300 MG Atorvastatin Calcium 40 mg HS PO 06/10/25 22:00 06/14/25 21:26 40 MG Tamsulosin HCl 0.4 mg QPM PO 06/11/25 18:00 06/14/25 17:48 0.4 MG Ondansetron HCl 4 mg Q4HP PRN IV 06/10/25 20:00 Acetaminophen 650 mg Q6HP PRN PO 06/10/25 20:00 Spironolactone 25 mg DAILY PO 06/11/25 10:00 06/13/25 10:02 25 MG Ceftriaxone Sodium 50 ml @ 100 mls/hr DAILY@09 IV 06/12/25 09:00 06/15/25 09:25 100 MLS/HR Metoprolol Tartrate 50 mg BID PO 06/13/25 22:00 06/14/25 21:38 50 MG Amiodarone HCl 250 ml @ 16.66 mls/ hr Q15H1M IV 06/13/25 21:00 06/15/25 00:27 16.66 MLS/HR Sodium Chloride 10 ml QSHIFT@10,22 IV 06/13/25 22:00 06/15/25 09:25 10 ML Phenylephrine HCl 250 ml @ 30 mls/hr Q8H20M IV 06/13/25 18:15 06/15/25 05:05 105 MLS/HR Cholestyramine Resin 4 gm Q12HR@11,23 PO 06/14/25 14:15 Enoxaparin Sodium 100 mg Q12HR SC 06/14/25 22:00 Cancel Enoxaparin Sodium 110 mg Q12HR SC 06/14/25 22:00 06/15/25 09:25 110 MG Pantoprazole Sodium 40 mg DAILY IV 06/16/25 10:00 Examination: GENERAL:Abnormal, HEENT:Abnormal, LUNGS:Abnormal, CVS:Abnormal, ABDOMEN:Abnormal laboratory and microbiology Laboratory Tests 06/15/25 09:10 Test 06/15/25 09:10 Range/Units Serum Glucose 90 74-106 mg/dL Microbiology Date/Time Source Procedure Growth Status 06/14/25 00:30 Stool Stool Culture - Preliminary Resulted 06/14/25 00:30 Stool Shiga Toxin I & II - Final Resulted Problem List/Assessment/Plan Problem List/Assessment/Plan Paroxysmal SVT Paroxysmal atrial fibrillation/atrial flutter with rapid ventricular rate (on Eliquis) NSTEMI, possibly type 1 Chronic HFrEF, NYHA class III Dyslipidemia History of colon and prostate cancer History of tobacco use Plan/recommendations (): A transthoracic echocardiogram reveals an EF of 35%. Continue guideline directed medical therapy for CHF as tolerated. Hold SGLT2i at this time given UTI. Nuclear stress test reveals inferior infarct, no major ischemia. Results reviewed with . Patient may benefit from coronary angiogram with left heart catheterization. The procedure was discussed with the patient in full detail including risks and benefits. Risks include but are not limited to bleeding, contrast-induced nephropathy, coronary dissection, stroke, and even . The patient understands and is agreeable to undergo the procedure. We will tentatively schedule the patient for coronary angiogram with left heart catheterization on 06/14/2025 with . Recommend vagal maneuver for SVT if hemodynamically stable, give IV adenosine if vagal maneuvers do not terminate SVT. Consider synchronized cardioversion if patient is hemodynamically unstable during SVT episodes. [id number] VASc score: 3 points, HAS-BLED score: 2 points. Continue beta-yefri for rate control, therapeutic Lovenox while inpatient and transition back to DOAC prior to discharge. EP team initiated Amiodarone. Recommend to monitor and replete electrolytes as needed, keep potassium greater than four and magnesium greater than two. Continue with EP consult and recommendations. Continue with close cardiac surveillance and notify cardiology team immediately for any ECG changes. Thank you for allowing us to care for this patient. Please call with any questions or concerns. cath shows no severe cad LV dysfunctoin on low dose yan start GDMT when feasible ep consult ongoing ,cont AAD per EP resume heparin/lovenox when feasible wean off pressors AFL --> SR sp warren guided dccv fu ep recs fu dr gab rojas signing off Plan discussed with: Patient, Spouse, Daughter My Orders My Orders Orders - NILES FIGUEROA MD Procedure Category Date Status Time Npo (Nothing By DIET 06/15/25 Transmitted Mouth) Diet Breakfast Dietary Evaluation Review Comments: 1. Resume 2GNA diet after procedures 2. Monitor PO intakes to meet 75% of his needs 3. Wt management desrible upon D/C Expected Outcomes/Goals: Gradual Wt loss Off Drugs that affect his GI function Date of Service: Jun 15, 2025 Billing Provider: NILES FIGUEROA MD Common Visit Codes: NOT BILLABLE NILES FIGUEROA MD Jun 15, 2025 11:58
--- NOTE | 2025-06-15 12:00 | DVHOP2 ---
Operative Report Operative Report CARDIAC OUTPATIENT PHLEBOTOMIST PROCEDURE REPORT [place], [place] Date of Service: Field Tech: Niles Barry MD PROCEDURES PERFORMED: trans esophageal echocardiogram, conscious sedation <15 mins, doppler assesment complete LAUREL, DC cardioversion PREOPERATIVE DIAGNOSES: AFib / atrial flutter POSTOP DIAGNOSIS: SR DESCRIPTION OF PROCEDURE: The patient or appropriate family signed informed consent understanding the risks, benefits and alternatives of the procedure, they wished to proceed. The patient was brought to the cardiac woods laborer in n.p.o. state. the patient was given 15 ml of oral viscous lidocaine. the patient was placed in a left lateral decubitus position with bite block in mouth. NExt conscious sedation was administered per woods laborer protocol with _2_ mg of versed and _75__ mcg of fentanyl. Next a LAUREL probe was advanced to the mid esophagus with ease and multiple planar images obtained. At the completion of the procedure , probe was removed and there were no immediate complications. FINDINGS: Left Ventricle: decreased LV global function LVEF estimated at 3 0% Right Ventricle: mild dysfunction Left atrium: enlarged, smoke in LA Right atrium: mild enlarged Left atrial appendage: no thrombus noted, decreased velocity on PW monitoring Aortic valve: trileaflet valve, no severe or AI Mitral Valve: structurally normal, mimitral regurg, no MS Tricuspid Valve: mild tricuspid regurgitaiton, no TS Pulmonic Valve: strucutrally normal, no severe PIor PS Interatrial septum: negative color flow for R to L shunt Ascending aorta: no severe plaquing Next we sync'ed to 150 J and 1 shock delivered with successful jehovah's witness of Normal Sinus rhythm. CONCLUSIONS: 1. Successful LAUREL guided DCCV PLAN: NILES Arrington MD Jun 15, 2025 12:00
[2025-06-15] MEDS: PANTOPRAZOLE 40 MG/10 ML VIAL INJ IV ONE (12:45)
[2025-06-15] MEDS: POTASSIUM EFFERVESENT TAB 25 MEQ PO ONE (16:00)
[2025-06-15] MEDS: AMIODARONE HCL 200 MG TAB PO ONE (17:25)
--- NOTE | 2025-06-15 19:42 | DVHPNRES ---
Progress Note Date Seen: Jun 15, 2025 Resident Creating Document: EUGENE RANGEL RESIDENT Medical Necessity Reason Pt with a Central, PICC or Fol: No Subjective Review of Systems 80-year-old male was sent to the ER from outpatient clinic where he was scheduled to get a DEXA scan. Per chart review, patient's pulse was in 200s, and he was reporting shortness of breaths, and dizziness therefore he was sent to the ER where patient was diagnosed to be SVT and consequently adenosine IV and vagal maneuvers were administered which was successful in converting him to sinus rhythm. Patient reports that he has been experiencing shortness of breaths on exertion, dizziness on exertion, generalized weakness for the past 2 days, only on exertion and relieved on rest. He denies any chest pain, shortness of breaths at rest, orthopnea, PND, any other GI or complaints. Denies fever or chills. He reports compliance to his medications. Patient had an appointment with Dr. Jacinto on 06/11/2025. Past medical history: HFrEF-12%, end-stage dilated cardiomyopathy-? history of SVT and NSVT, paroxysmal AFib on Eliquis, prostate cancer, colon cancer, history of tobacco use, obesity, hypertension, hyperlipidemia Past surgical history: Reports possible left heart catheterization 6 years back in [place]-no ANN Home medications: Entresto, metoprolol tartrate 50 mg b.i.d., spironolactone 25 mg daily, Eliquis 2.5 mg b.i.d., tamsulosin Social history: Quit smoking 1984, smoked 15 years a pack a day, denies drinking or drug use, lives in [place] with the and niece 06/14/2025:Patient seen and examined at bedside. On phenylephrine and amiodarone drip. continue to be have a fib. plan for cardioversion with warren tomorrow. no chest pain , fever or sob. 06/15/2025: no new complains, off vasopressors, s/p WARREN and cardioversion. going into sinus to afib. flutter. PT eval today. passed swallow test. Objective vital signs Vital Sign Date Time Temp Pulse Resp B/P (MAP) Pulse Ox O2 Delivery O2 Flow Rate FiO2 06/15/25 18:30 79 18 107/66 (80) 98 06/15/25 18:00 Room Air* 0 21 06/15/25 16:00 98.7 98.7 Total Intake and Output 06/14/25 06/14/25 06/15/25 15:00 23:00 07:00 Intake Total 270 ml 478.30 ml 1052.03 ml Output Total 550 ml 500 ml Balance 270 ml -71.70 ml 552.03 ml medications Current Medications Medications Dose Ordered Sig/Mónica Route Start Time Stop Time Status Last Admin Dose Admin Nitroglycerin 0.4 mg Q5MINP PRN SL 06/10/25 20:00 Morphine Sulfate 2 mg Q30M PRN IV 06/10/25 20:00 Gabapentin 300 mg DAILY PO 06/11/25 10:00 06/14/25 11:11 300 MG Atorvastatin Calcium 40 mg HS PO 06/10/25 22:00 06/14/25 21:26 40 MG Tamsulosin HCl 0.4 mg QPM PO 06/11/25 18:00 06/15/25 17:29 0.4 MG Ondansetron HCl 4 mg Q4HP PRN IV 06/10/25 20:00 Acetaminophen 650 mg Q6HP PRN PO 06/10/25 20:00 Spironolactone 25 mg DAILY PO 06/11/25 10:00 06/13/25 10:02 25 MG Ceftriaxone Sodium 50 ml @ 100 mls/hr DAILY@09 IV 06/12/25 09:00 06/15/25 09:25 100 MLS/HR Metoprolol Tartrate 50 mg BID PO 06/13/25 22:00 06/14/25 21:38 50 MG Amiodarone HCl 250 ml @ 16.66 mls/ hr Q15H1M IV 06/13/25 21:00 06/15/25 22:00 06/15/25 16:20 16.66 MLS/HR Sodium Chloride 10 ml QSHIFT@10,22 IV 06/13/25 22:00 06/15/25 09:25 10 ML Enoxaparin Sodium 100 mg Q12HR SC 06/14/25 22:00 Cancel Enoxaparin Sodium 110 mg Q12HR SC 06/14/25 22:00 06/15/25 09:25 110 MG Pantoprazole Sodium 40 mg DAILY IV 06/16/25 10:00 Amiodarone HCl 200 mg DAILY PO 06/16/25 10:00 Examination General Appearance: Cooperative. Well developed. Well nourished. NAD Head Exam: Normal inspection Neck Exam: Normal inspection. Non-tender. Normal alignment Pulmonary/Respiratory: Chest non-tender. Clear bilateral breath sounds Cardiovascular/Chest: Irregular rhythm, heart rate 92-100 per minute. No murmurs. No JVD. Peripheral Pulses: 2+ Radial (R). 2+ Radial (L). 2+ Pedal (R). 2+ Pedal (L) Abdominal Exam: Normal bowel sounds. Soft. Nontender. No hepatospenomegaly. No masses Ankle Exam: Negative ankle edema Lower extremities: Negative lower extremity edema Neuro/Mental Status: A&O x4. Coherent Thoughts/Psych: Normal thought pattern. Appropriate mood and affect. Good judgement and insight Appearance: In no acute distress Skin Exam: Normal inspection. Normal color. Warm. Dry laboratory and microbiology Laboratory Tests 06/15/25 09:10 Test 06/15/25 09:10 Range/Units Serum Glucose 90 74-106 mg/dL Microbiology Date/Time Source Procedure Growth Status 06/14/25 00:30 Stool Stool Culture - Preliminary Resulted 06/14/25 00:30 Stool Shiga Toxin I & II - Final Resulted Problem List/Assessment/Plan Problem List/Assessment/Plan Cardiology Acute on chronic HFrEF SVT converted to atrial fibrillation Paroxysmal atrial fibrillation Nonischemic cardiomyopathy NSTEMI type 2 likely due to CHF Hypertension -S/P : WARREN And cardioversion: NO clots in heart chambers. Converted to sinus after cardioversion. -stress test on 06/11/2025:inferior infarct -coronary angiogram on 06/14/2025: No CVA coronary artery disease nonischemic cardiomyopathy. Ejection fraction 35%. -amiodarone drip transition to Po amiodarone 200 mg po bid. -anticoagulation with enoxaparin 110 mg b.i.d. subQ transion of eliquis 5 mg po bid -echocardiogram:lvef 35,dilated LV ,RV enlarged ,no severe valve abnormalities noted ,mild mitral regurg -maintain magnesium greater than 2 -maintain potassium greater than 4 -cardiology and EP: Possible warren with cardioversion -GDMT: Continue metoprolol tartrate 50 mg p.o. b.i.d. , spironolactone 25 mg p.o. daily. Hold Entresto given low blood pressure. Respiratory Acute hypoxic respiratory failure -on 2 L oxygen via nasal cannula -chest x-ray: Mild prominence bronchovascular marking. No pleural effusion Nephrology ROD due to VMN: Improving. -creatinine o 1.32, 1.14, 0.90 -continue to monitor renal function. /GI Septic shock due to UTI -urinalysis showed leukocyte esterase positive, WBC, blood 1+. -ceftriaxone -urine culture -IV vasopressor: Titrate off vasopressor. Target map 65 BPH History of prostate cancer -tamsulosin 0.4 mg p.o. daily. H/O colon cancer. 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 daily PUD: Protonix DVT: Lovenox Critical care time spent 55 minutes. Plan discussed with daughter and patient at bed side. Plan discussed with Dr Fabian Plan discussed with: Patient, Other My Orders My Orders Orders - EUGENE RANGEL Procedure Category Date Status Time Pantoprazole PHA 06/16/25 In Process (Protonix) 10:00 Cardiac DIET 06/15/25 Transmitted Diet-2gna,Lofat,Lochol Dinner Pt Request For Service PT 06/15/25 Logged 16:23 Amiodarone Tablet PHA 06/16/25 In Process (Cordarone Tablet) 10:00 Basic Metabolic Panel LAB 06/16/25 Verified 04:00 Complete Blood Count LAB 06/16/25 Verified 04:00 Magnesium LAB 06/16/25 Verified 04:00 Dietary Evaluation Review Comments: 1. Resume 2GNA diet after procedures 2. Monitor PO intakes to meet 75% of his needs 3. Wt management desrible upon D/C Expected Outcomes/Goals: Gradual Wt loss Off Drugs that affect his GI function Date of Service: Jun 15, 2025 Billing Provider: POORNIMA GUY MD Common Visit Codes: [id number] [facility] 30-74 MIN EUGENE RANGEL RESIDENT Jun 15, 2025 19:42 POORNIMA GUY MD Jun 16, 2025 13:18
--- NOTE | 2025-06-15 19:43 | DVHPN2 ---
Progress Note - Dictate Medical Necessity Reason Pt with a Central, PICC or Fol: No vital signs Vital Sign Date Time Temp Pulse Resp B/P (MAP) Pulse Ox O2 Delivery O2 Flow Rate FiO2 06/15/25 18:30 79 18 107/66 (80) 98 06/15/25 18:00 Room Air* 0 21 06/15/25 16:00 98.7 98.7 Total Intake and Output 06/14/25 06/14/25 06/15/25 15:00 23:00 07:00 Intake Total 270 ml 478.30 ml 1052.03 ml Output Total 550 ml 500 ml Balance 270 ml -71.70 ml 552.03 ml medications Current Medications Medications Dose Ordered Sig/Mónica Route Start Time Stop Time Status Last Admin Dose Admin Nitroglycerin 0.4 mg Q5MINP PRN SL 06/10/25 20:00 Morphine Sulfate 2 mg Q30M PRN IV 06/10/25 20:00 Gabapentin 300 mg DAILY PO 06/11/25 10:00 06/14/25 11:11 300 MG Atorvastatin Calcium 40 mg HS PO 06/10/25 22:00 06/14/25 21:26 40 MG Tamsulosin HCl 0.4 mg QPM PO 06/11/25 18:00 06/15/25 17:29 0.4 MG Ondansetron HCl 4 mg Q4HP PRN IV 06/10/25 20:00 Acetaminophen 650 mg Q6HP PRN PO 06/10/25 20:00 Spironolactone 25 mg DAILY PO 06/11/25 10:00 06/13/25 10:02 25 MG Ceftriaxone Sodium 50 ml @ 100 mls/hr DAILY@09 IV 06/12/25 09:00 06/15/25 09:25 100 MLS/HR Metoprolol Tartrate 50 mg BID PO 06/13/25 22:00 06/14/25 21:38 50 MG Amiodarone HCl 250 ml @ 16.66 mls/ hr Q15H1M IV 06/13/25 21:00 06/15/25 22:00 06/15/25 16:20 16.66 MLS/HR Sodium Chloride 10 ml QSHIFT@ IV 06/13/25 22:00 06/15/25 09:25 10 ML Enoxaparin Sodium 100 mg Q12HR SC 06/14/25 22:00 Cancel Enoxaparin Sodium 110 mg Q12HR SC 06/14/25 22:00 06/15/25 09:25 110 MG Pantoprazole Sodium 40 mg DAILY IV 06/16/25 10:00 Amiodarone HCl 200 mg DAILY PO 06/16/25 10:00 laboratory and microbiology Laboratory Tests 06/15/25 09:10 Test 06/15/25 09:10 Range/Units Serum Glucose 90 74-106 mg/dL Assessment/Plan The patient is a 80-year-old male who was sent to the emergency department from an outpatient clinic, where he had been scheduled for a DEXA scan. Per chart review, the patients pulse was noted to be in the 200s, and he reported shortness of breath and dizziness. He was subsequently sent to the emergency department, where electrocardiogram demonstrated supraventricular tachycardia (SVT) with a rate of 212 bpm. The rhythm converted to sinus rhythm/sinus tachycardia following administration of adenosine IV and vagal maneuvers. The patient reports experiencing shortness of breath on exertion, dizziness, and generalized weakness for approximately two days prior to presentation, with symptoms occurring only on exertion and relieved by rest. He denies chest pain, orthopnea, paroxysmal nocturnal dyspnea, or shortness of breath at rest. He reports compliance with his medications. The patient had a scheduled follow-up appointment with Dr. Higginbotham on 06/11/2025. Laboratory results revealed high-sensitivity troponin values of 34, 34, 107, and 357, hemoglobin 12.3, potassium 4.2, magnesium 2.2, and creatinine 1.08. Echocardiogram completed on 06/11/2025 showed an ejection fraction of 35%, dilated left ventricle, right ventricular enlargement, and mild mitral regurgitation with no severe valvular abnormalities. Nuclear stress test completed on the same date demonstrated an ejection fraction of 27%, dilated left ventricle, and no evidence of significant ischemia. At present, the patient denies chest pain or shortness of breath but continues to report palpitations. Telemetry review is notable for atrial flutter. Electrophysiology was consulted by cardiology for evaluation and management of tachyarrhythmias. Reported Past Medical History Heart failure with reduced ejection fraction (previously documented at 12%), end-stage dilated cardiomyopathy, ischemic cardiomyopathy, supraventricular tachycardia, non-sustained ventricular tachycardia, paroxysmal atrial fibrillation on Eliquis, prostate cancer, colon cancer, history of tobacco use, and obesity. Echocardiogram (06/11/2025) showed an ejection fraction of 35%, dilated left ventricle, right ventricular enlargement, and mild mitral regurgitation with no severe valvular abnormalities. Nuclear stress test (06/11/2025) demonstrated an ejection fraction of 27%, dilated left ventricle, and no evidence of significant ischemia. Cardiac Catheterization: (06/14/2025) RCA: Moderate vessel off the right sinus of Valsalva, there is no severe flow limiting stenosis. LEFT MAIN: Moderate size left main, it bifurcates into LAD and circumflex. no stenosis. CIRCUMFLEX: Moderate caliber vessel coming off the left main with no flow limiting stenosis. LAD: LAD is a moderate caliber vessel coming of the left main. no stenosis. LVEDP of 14 mmhg. CONCLUSIONS: 1. no severe cad Assessment: Non-ischemic cardiomyopathy, likely tachyarrhythmia induced Acute Systolic/Diastolic heart failure with reduced ejection fraction (EF 35%) Paroxysmal supraventricular tachycardia, status post conversion with adenosine Paroxysmal atrial fibrillation/flutter with rapid ventricular response Dilated left ventricle, likely tachycardia-induced cardiomyopathy Type 2 diabetes mellitus Mild mitral regurgitation Hyperlipidemia Hypertension Electrophysiology Suggestions for Management: Cardiac catheterization revealed no indication warranted for coronary revascularization 06/14/2025 Recognizing continued atrial flutter despite continuous amiodarone infusion, plan for LAUREL DCCV 06/15/[address] Barry, to be consented and NPO status at midnight Recognizing acutely reduced LVEF of 35%, recommend obtaining Life Vest prior to discharge for primary prevention against sudden cardiac Proceed with Amiodarone infusion as for now for rhythm control of PAF/Flutter as for now Continuation of AC for CVA prophylaxis of PAF/Flutter is advised On therapeutic Lovenox for now, transition to DOAC upon DC Proceed with GDMT as per interventional cardiology services Follow up interventional cardiology recommendations Will proceed to follow from EP perspective Proceed with close rate and rhythm surveillance Proceed with close hemodynamic surveillance Proceed with optimized blood pressure control Transfuse to sustain HGB levels above 7.0 Sustain Magnesium level greater than 2.0 Sustain Potassium level greater than 4.0 Follow up renal function and electrolytes Management in ICU Will proceed to follow from a EP perspective Further recommendations per clinical progression All available labs, EKGs, and images were personally reviewed Patient's status, findings, and plan of care was discussed and reviewed with supervising physician Dr. Paulino, who is in agreement with current plan of care. Plan of care discussed with and agreed upon by patient/family/Primary RN. Prognosis: Guarded Thank you for allowing me to participate in the care of this patient. Further recommendations will depend on clinical progression, hospitalist, and other consultants. Will continue to follow with Primary. If you have any questions, please do not hesitate to contact me. A total of 75 minutes was spent reviewing the patient record, examining the patient, making a diagnostic and therapeutic plan, discussing this plan with medical personnel, following up on diagnostic studies and following the patient for clinical stability excluding any and all procedures. At least 50% of this time was spent in direct, [id number] contact. Dietary Evaluation Review Comments: 1. Resume 2GNA diet after procedures 2. Monitor PO intakes to meet 75% of his needs 3. Wt management desrible upon D/C Expected Outcomes/Goals: Gradual Wt loss Off Drugs that affect his GI function MAI DELGADILLO [facility] Jun 15, 2025 19:43
[2025-06-15] MEDS: APIXABAN 5 MG TAB PO SCH (22:04)
[2025-06-16] VITALS (51 sets, daily range): BP systolic 71–123; BP diastolic 29–76; PULSE 60–88; RESP 11–25; TEMP 97.6–98.2; O2SAT 91–100
[2025-06-16] MEDS: SODIUM CHLORIDE 0.9% 250 ML IV ONE (03:45)
--- NOTE | 2025-06-16 06:58 | ECG ---
[facility] Test Date: 2025-06-15 Test Time: 12:19:41 Pat Name: HERO STEWART Department: icu Room: [address] [place] [address] Gender: M Neurology Professor: luz marina : 1945 Requested By: MIRNA SILVESTRE Order Number: [id number] Reading MD: Bolivar Jacinto Measurements Intervals Sprague Rate: 73 P: -10 DC: 179 QRS: -41 QRSD: 105 T: 41 QT: 448 QTc: 494 Interpretive Statements Sinus rhythm Atrial premature complex Left axis deviation Borderline prolonged QT interval Electronically Signed On 06-22-2025 12:47:30 PST by Bolivar Jacinto Please click the below link to view image of tracing.
[2025-06-16 07:00] LABS: Hematocrit 30.7 % (41.0-53.0); Hemoglobin 10.3 g/dL (13.5-17.5); Mean Corpuscular Hemoglobin 32.6 pg (28.0-32.0); Mean Corpuscular Volume 96.8 fL (80.0-100.0); Nucleated Red Blood Cells % 0.0 %
[2025-06-16 07:02] LABS: Chloride 106 mmol/L (98-107); Potassium 4.4 mmol/L (3.5-5.1); Sodium 139 mmol/L (136-145)
[2025-06-16 07:03] LABS: Anion Gap 8 (5-15); Carbon Dioxide 25 mmol/L (20-31)
[2025-06-16 07:04] LABS: Calcium 9.3 mg/dL (8.7-10.4)
[2025-06-16 07:08] LABS: Glucose 88 mg/dL (74-106)
[2025-06-16 07:09] LABS: BUN/Creatinine Ratio 12.4 (10.0-20.0); Blood Urea Nitrogen 13 mg/dL (9-23); Magnesium 1.8 mg/dL (1.6-2.6)
[2025-06-16] MEDS: AMIODARONE HCL 200 MG TAB PO SCH (08:40)
[2025-06-16] MEDS: PANTOPRAZOLE 40 MG/10 ML VIAL INJ IV SCH (08:41)
[2025-06-16] MEDS: MAGNESIUM OXIDE 400 MG TAB PO ONE (08:42)
--- NOTE | 2025-06-16 09:19 | DVHPNRES ---
Progress Note Date Seen: Jun 16, 2025 Resident Creating Document: EUGENE RANGEL RESIDENT Medical Necessity Reason Pt with a Central, PICC or Fol: No Subjective Review of Systems 80-year-old male was sent to the ER from outpatient clinic where he was scheduled to get a DEXA scan. Per chart review, patient's pulse was in 200s, and he was reporting shortness of breaths, and dizziness therefore he was sent to the ER where patient was diagnosed to be SVT and consequently adenosine IV and vagal maneuvers were administered which was successful in converting him to sinus rhythm. Patient reports that he has been experiencing shortness of breaths on exertion, dizziness on exertion, generalized weakness for the past 2 days, only on exertion and relieved on rest. He denies any chest pain, shortness of breaths at rest, orthopnea, PND, any other GI or complaints. Denies fever or chills. He reports compliance to his medications. Patient had an appointment with Dr. Jacinto on 06/11/2025. Past medical history: HFrEF-12%, end-stage dilated cardiomyopathy-? history of SVT and NSVT, paroxysmal AFib on Eliquis, prostate cancer, colon cancer, history of tobacco use, obesity, hypertension, hyperlipidemia Past surgical history: Reports possible left heart catheterization 6 years back in [place]-no ANN Home medications: Entresto, metoprolol tartrate 50 mg b.i.d., spironolactone 25 mg daily, Eliquis 2.5 mg b.i.d., tamsulosin Social history: Quit smoking 1984, smoked 15 years a pack a day, denies drinking or drug use, lives in [place] with the and niece 06/14/2025:Patient seen and examined at bedside. On phenylephrine and amiodarone drip. continue to be have a fib. plan for cardioversion with warren tomorrow. no chest pain , fever or sob. 06/15/2025: no new complains, off vasopressors, s/p WARREN and cardioversion. going into sinus to afib. flutter. PT eval today. passed swallow test. 06/16/2025: No new complains, downgraded to tele, keep into sinus vs atrial flutter. able to eat and ambulate Objective vital signs Vital Sign Date Time Temp Pulse Resp B/P (MAP) Pulse Ox O2 Delivery O2 Flow Rate FiO2 06/16/25 06:30 70 15 105/58 (74) 99 06/16/25 06:08 Room Air* 0 21 06/16/25 04:00 97.9 97.9 Total Intake and Output 06/15/25 06/15/25 06/16/25 15:00 23:00 07:00 Intake Total 213.28 ml 374.96 ml 240 ml Output Total 550 ml 300 ml Balance 213.28 ml -175.04 ml -60 ml medications Current Medications Medications Dose Ordered Sig/Mónica Route Start Time Stop Time Status Last Admin Dose Admin Nitroglycerin 0.4 mg Q5MINP PRN SL 06/10/25 20:00 Morphine Sulfate 2 mg Q30M PRN IV 06/10/25 20:00 Gabapentin 300 mg DAILY PO 06/11/25 10:00 06/16/25 08:40 300 MG Atorvastatin Calcium 40 mg HS PO 06/10/25 22:00 06/15/25 22:05 40 MG Tamsulosin HCl 0.4 mg QPM PO 06/11/25 18:00 06/15/25 17:29 0.4 MG Ondansetron HCl 4 mg Q4HP PRN IV 06/10/25 20:00 Acetaminophen 650 mg Q6HP PRN PO 06/10/25 20:00 Spironolactone 25 mg DAILY PO 06/11/25 10:00 06/16/25 08:40 25 MG Ceftriaxone Sodium 50 ml @ 100 mls/hr DAILY@09 IV 06/12/25 09:00 06/16/25 08:41 100 MLS/HR Metoprolol Tartrate 50 mg BID PO 06/13/25 22:00 06/15/25 22:05 50 MG Sodium Chloride 10 ml QSHIFT@10,22 IV 06/13/25 22:00 06/16/25 08:41 10 ML Enoxaparin Sodium 100 mg Q12HR SC 06/14/25 22:00 Cancel Pantoprazole Sodium 40 mg DAILY IV 06/16/25 10:00 06/16/25 08:41 40 MG Amiodarone HCl 200 mg DAILY PO 06/16/25 10:00 06/16/25 08:40 200 MG Apixaban 5 mg BID PO 06/15/25 22:00 06/16/25 08:40 5 MG Examination General Appearance: Cooperative. Well developed. Well nourished. NAD Head Exam: Normal inspection Neck Exam: Normal inspection. Non-tender. Normal alignment Pulmonary/Respiratory: Chest non-tender. Clear bilateral breath sounds Cardiovascular/Chest: Irregular rhythm, heart rate 92-100 per minute. No murmurs. No JVD. Peripheral Pulses: 2+ Radial (R). 2+ Radial (L). 2+ Pedal (R). 2+ Pedal (L) Abdominal Exam: Normal bowel sounds. Soft. Nontender. No hepatospenomegaly. No masses Ankle Exam: Negative ankle edema Lower extremities: Negative lower extremity edema Neuro/Mental Status: A&O x4. Coherent Thoughts/Psych: Normal thought pattern. Appropriate mood and affect. Good judgement and insight Appearance: In no acute distress Skin Exam: Normal inspection. Normal color. Warm. Dry laboratory and microbiology Laboratory Tests 06/16/25 05:40 Test 06/16/25 05:40 Range/Units Serum Glucose 88 74-106 mg/dL Microbiology Date/Time Source Procedure Growth Status 06/14/25 00:30 Stool Stool Culture - Preliminary Resulted 06/14/25 00:30 Stool Shiga Toxin I & II - Final Resulted Problem List/Assessment/Plan Problem List/Assessment/Plan Cardiology Acute on chronic HFrEF SVT converted to atrial fibrillation Paroxysmal atrial fibrillation Nonischemic cardiomyopathy NSTEMI type 2 likely due to CHF Hypertension -metoprolol tartrate 50 mg po bid -S/P : WARREN And cardioversion: NO clots in heart chambers. Converted to sinus after cardioversion. -stress test on 06/11/2025:inferior infarct -coronary angiogram on 06/14/2025: No CVA coronary artery disease nonischemic cardiomyopathy. Ejection fraction 35%. -amiodarone drip transition to Po amiodarone 200 mg po bid. -anticoagulation with enoxaparin 110 mg b.i.d. subQ transion of eliquis 5 mg po bid -echocardiogram:lvef 35,dilated LV ,RV enlarged ,no severe valve abnormalities noted ,mild mitral regurg -maintain magnesium greater than 2 -maintain potassium greater than 4 -cardiology and EP: Possible warren with cardioversion -GDMT: Continue metoprolol tartrate 50 mg p.o. b.i.d. , spironolactone 25 mg p.o. daily. Hold Entresto given low blood pressure. Respiratory Acute hypoxic respiratory failure -on 2 L oxygen via nasal cannula -chest x-ray: Mild prominence bronchovascular marking. No pleural effusion Nephrology ROD due to VMN: Improving. -creatinine o 1.32, 1.14, 0.90, 1.05 -continue to monitor renal function. /GI Septic shock due to UTI -urinalysis showed leukocyte esterase positive, WBC, blood 1+.Repeat UA and culture -ceftriaxone -urine culture -IV vasopressor: Titrate off vasopressor. Target map 65 BPH History of prostate cancer -tamsulosin 0.4 mg p.o. daily. H/O colon cancer. 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 daily PUD: Protonix DVT: Lovenox Critical care time spent 83 minutes. Plan discussed with and daughter and patient at bed side. Plan discussed with Dr Fabian Plan discussed with: Patient, Spouse, Daughter, Other (RN) My Orders My Orders Orders - EUGENE RANGEL Procedure Category Date Status Time Pantoprazole PHA 06/16/25 In Process (Protonix) 10:00 Cardiac DIET 06/15/25 Transmitted Diet-2gna,Lofat,Lochol Dinner Pt Request For Service PT 06/15/25 Logged 16:23 Amiodarone Tablet PHA 06/16/25 In Process (Cordarone Tablet) 10:00 Apixaban (Eliquis) PHA 06/15/25 In Process 22:00 Dietary Evaluation Review Comments: 1. Resume 2GNA diet after procedures 2. Monitor PO intakes to meet 75% of his needs 3. Wt management desrible upon D/C Expected Outcomes/Goals: Gradual Wt loss Off Drugs that affect his GI function Date of Service: Jun 16, 2025 Billing Provider: POORNIMA GUY MD Common Visit Codes: 72652-[id number] CARE 30-74 MIN, 52360-[id number] CARE-EACH +30MIN EUGENE RANGEL Jun 16, 2025 09:19 POORNIMA GUY MD Jun 17, 2025 12:55
[2025-06-17] VITALS (18 sets, daily range): BP systolic 95–123; BP diastolic 54–78; PULSE 56–91; RESP 10–20; TEMP 97.7–98.5; O2SAT 91–100
[2025-06-17 05:58] LABS: Hematocrit 31.1 % (41.0-53.0); Hemoglobin 10.4 g/dL (13.5-17.5); Mean Corpuscular Hemoglobin 32.3 pg (28.0-32.0); Mean Corpuscular Volume 96.9 fL (80.0-100.0); Nucleated Red Blood Cells % 0.0 %
[2025-06-17 06:22] LABS: Alanine Aminotransferase 23 U/L (7-40); Albumin 3.6 g/dL (3.2-4.8); Alkaline Phosphatase 55 U/L (46-116); Anion Gap 9 (5-15); BUN/Creatinine Ratio 13.2 (10.0-20.0); Bilirubin, Total 0.4 mg/dL (0.2-1.0); Blood Urea Nitrogen 14 mg/dL (9-23); Calcium 9.4 mg/dL (8.7-10.4); Carbon Dioxide 26 mmol/L (20-31); Chloride 105 mmol/L (98-107); Glucose 88 mg/dL (74-106); Potassium 4.0 mmol/L (3.5-5.1); Sodium 140 mmol/L (136-145); Total Protein 6.6 g/dL (5.7-8.2)
[2025-06-17] MEDS: PANTOPRAZOLE 40 MG TAB PO SCH (06:31)
[2025-06-17] MEDS ORDERED: APIX2.5T PO (13:09)
[2025-06-17] MEDS ORDERED: MET50T PO (13:09)
--- NOTE | 2025-06-21 16:42 | DVHDSRES ---
Discharge Summary Date of Admission Resident Creating Document: EUGENE RANGEL RESIDENT Jun 10, 2025 at 19:53 Date of Discharge: Jun 17, 2025 Labs/Diagnostic Data: Laboratory Results Test 06/17/25 04:58 06/14/25 03:08 06/13/25 17:10 06/11/25 11:53 White Blood Count 6.2 10^3/uL (4.4-10.8) Red Blood Count 3.21 10^6/uL (4.5-5.90) Hemoglobin 10.4 g/dL (13.5-17.5) Hematocrit 31.1 % (41.0-53.0) Mean Corpuscular Volume 96.9 fL (80.0-100.0) Mean Corpuscular Hemoglobin 32.3 pg (28.0-32.0) Mean Corpuscular Hemoglobin Concent 33.3 g/dL (32.0-36.0) Red Cell Distribution Width 14.1 % (11.8-14.3) Platelet Count 204 10^3/uL (140-450) Mean Platelet Volume 8.7 fL (6.9-10.8) Neutrophils (%) (Auto) 62.4 % (37.0-80.0) Lymphocytes (%) (Auto) 25.1 % (10.0-50.0) Monocytes (%) (Auto) 8.8 % (0.0-12.0) Eosinophils (%) (Auto) 3.2 % (0.0-7.0) Basophils (%) (Auto) 0.5 % (0.0-2.0) Neutrophils # (Auto) 3.9 10 ^3/uL (1.6-8.6) Lymphocytes # (Auto) 1.6 10 ^3/uL (0.4-5.4) Monocytes # (Auto) 0.5 10 ^3/uL (0-1.3) Eosinophils # (Auto) 0.2 10 ^3/uL (0-0.8) Basophils # (Auto) 0 10 ^3/uL (0-0.2) Nucleated Red Blood Cells 0.0 % Sodium Level 140 mmol/L (136-145) Potassium Level 4.0 mmol/L (3.5-5.1) Chloride Level 105 mmol/L (98-107) Carbon Dioxide Level 26 mmol/L (20-31) Anion Gap 9 (5-15) Blood Urea Nitrogen 14 mg/dL (9-23) Creatinine 1.06 mg/dL (0.700-1.30) Glomerular Filtration Rate Calc 72 mL/min (>90) BUN/Creatinine Ratio 13.2 (10.0-20.0) Serum Glucose 88 mg/dL (74-106) Calcium Level 9.4 mg/dL (8.7-10.4) Magnesium Level 1.8 mg/dL (1.6-2.6) Total Bilirubin 0.4 mg/dL (0.2-1.0) Aspartate Amino Transferase (AST) 26 U/L (13-40) Alanine Aminotransferase (ALT) 23 U/L (7-40) Alkaline Phosphatase 55 U/L (46-116) Total Protein 6.6 g/dL (5.7-8.2) Albumin 3.6 g/dL (3.2-4.8) Phosphorus Level 3.1 mg/dL (2.4-5.1) POC Glucose 108 mg/dl (70-106) Prothrombin Time 11.5 sec (9.3-11.8) Prothrombin Time INR 1.09 (0.9-1.15) Activated Partial Thromboplast Time 31.3 SEC (24.5-34.5) Test 06/11/25 04:45 06/10/25 18:00 06/10/25 17:32 06/10/25 16:33 Troponin I High Sensitivity 357 ng/L (</=54) Thyroid Stimulating Hormone (TSH) 0.78 uIU/mL (0.55-4.78) Urine Color Light-yellow (Yellow) Urine Clarity Clear (Clear) Urine pH 7.0 (5.0-9.0) Urine Specific [place] 1.013 (1.001-1.035) Urine Protein Trace (Negative) Urine Ketones Negative (Negative) Urine Blood 1+ /uL (Negative) Urine Nitrite Negative (Negative) Urine Bilirubin Negative (Negative) Urine Urobilinogen Normal mg/dL (Negative) Urine Leukocyte Esterase 3+ /uL (Negative) Urine RBC 32 /hpf (0 - 3) Urine Microscopic WBC 71 /HPF (0-3) Urine Squamous Epithelial Cells None seen /hpf (<5) Urine Bacteria None seen /hpf (None Seen) Urine Glucose Normal mg/dL (Normal) Lactic Acid Level 1.7 mmol/L (0.4-2.0) B-Type Natriuretic Peptide 370.53 pg/mL (0-100) Other Laboratory Tests 06/17/25 04:58 Brief Hx & Hospital Course: 80-year-old male was sent to the ER from outpatient clinic where he was scheduled to get a DEXA scan. Per chart review, patient's pulse was in 200s, and he was reporting shortness of breaths, and dizziness therefore he was sent to the ER where patient was diagnosed to be SVT and consequently adenosine IV and vagal maneuvers were administered which was successful in converting him to sinus rhythm. Patient reports that he has been experiencing shortness of breaths on exertion, dizziness on exertion, generalized weakness for the past 2 days, only on exertion and relieved on rest. He denies any chest pain, shortness of breaths at rest, orthopnea, PND, any other GI or complaints. Denies fever or chills. He reports compliance to his medications. Patient had an appointment with Dr. Jacinto on 06/11/2025. Past medical history: HFrEF-12%, end-stage dilated cardiomyopathy-? history of SVT and NSVT, paroxysmal AFib on Eliquis, prostate cancer, colon cancer, history of tobacco use, obesity, hypertension, hyperlipidemia Past surgical history: Reports possible left heart catheterization 6 years back in [place]-no ANN Home medications: Entresto, metoprolol tartrate 50 mg b.i.d., spironolactone 25 mg daily, Eliquis 2.5 mg b.i.d., tamsulosin Social history: Quit smoking 1984, smoked 15 years a pack a day, denies drinking or drug use, lives in [place] with the and [facility] Hospital course: Initially patient was found to have AFib with RVR, requiring amiodarone drip, patient underwent cardioversion after LAUREL ruled out intracardiac thrombus. However patient being on and off sinus rhythm and atrial fibrillation/flutter. Patient continued on therapeutic Lovenox initially, transitioned to Eliquis 5 mg p.o. b.i.d.. Patient also found to have a left ventricular ejection fraction of 35%, dilated LV with RVR enlarged. For rate control patient was continued on metoprolol tartrate 50 mg p.o. t.i.d., spironolactone 25 mg p.o. daily and hold Entresto given soft blood pressure. Advised to continue to monitor blood pressure and bring to primary care physician for evaluation of restarting Entresto. Given patient is hemodynamically stable, patient has been discharged home with amiodarone, Eliquis, metoprolol, spironolactone, tamsulosin, Eliquis. Condition at Discharge: Stable Final Diagnosis/Problems List Acute on chronic HFrEF Septic shock due to UTI SVT converted to atrial fibrillation Paroxysmal atrial fibrillation Nonischemic cardiomyopathy NSTEMI type 2 likely due to CHF Hypertension Acute hypoxic respiratory failure ROD due to VMN BPH H/O colon cancer. Anemia of chronic disease Secondary hypercoagulable due to atrial fibrillation Dyslipidemia Discharge Disposition: Home Discharge Instruct/Medications Diet: Cardiac 2g Na,low cholest Activity: No Restrictions, As Tolerated Follow Up/Referral: -Follow up with pcp in 2 weeks Medications: see prescription Scheduled Alendronate Sodium (Alendronate Sodium), 1 TAB PO QWEEKLY, (Reported) Apixaban Base (Eliquis), 2.5 MG PO BID Cholecalciferol (D3), 125 MCG PO DAILY, (Reported) Clotrimazole (Lotrimin Af), 1 APPLIC TOP BID, (Reported) Cyanocobalamin (B12), 2,500 MCG PO DAILY, (Reported) Diclofenac Sodium (Topical) (Diclofenac Sodium), 1 APPLIC TOP BID, (Reported) Gabapentin (Gabapentin), 1 TAB PO BID, (Reported) Magnesium Oxide (Magnesium Oxide), 1 TAB PO DAILY Metoprolol Tartrate (Lopressor Tablet), 50 MG PO Q12HR Omeprazole (Omeprazole Dr), 1 CAP PO BID, (Reported) Oxybutynin Chloride (Oxybutynin Chloride), 1 TAB PO BID, (Reported) Sacubitril-Valsartan (Entresto 24-26 mg), 0.5 TAB PO BID Simvastatin (Simvastatin), 1 TAB PO DAILY, (Reported) Spironolactone (Aldactone), 25 MG PO DAILY Tamsulosin Hcl (Tamsulosin Hcl), 1 CAP PO DAILY, (Reported) Scheduled PRN Tramadol Hcl (Tramadol Hcl), 1 TAB PO Q6HPRN PRN for pain, (Reported) Discontinued Medications Gabapentin (Gabapentin), 400 MG PO DAILY, (Reported) Discharge Statement: "Patient was advised to return to the ER or call 911 if any headaches, dizziness, shortness of breath, chest pain, abdominal pain, bleeding, fevers, or worsening of medical condition. Patient was counseled about treatment plan, medications, possible side effects, patientverbalized understanding. All questions were answered to the best of my ability. This discharge took greater then 30 minutes in planning, reviewing documentation, counseling the patient, and discussing with other team members." ASSESSMENT ASSESSMENT Assessment Acute on chronic HFrEF SVT converted to atrial fibrillation Paroxysmal atrial fibrillation Nonischemic cardiomyopathy NSTEMI type 2 likely due to CHF Hypertension Discharge comment No Answer EGUENE RANGEL RESIDENT Jun 21, 2025 16:42
== END 2025-06-17 15:41 | disposition home or self-care (01) | DRG 871 ==
LOC: ER 16:30 → OVERFLOW 19:53 → TELE-WESTW 21:51 → ICU WEST 06-13 16:03 → DOU 06-16 13:54
PROVIDERS: ADMIT Internal Medicine; ATTEND Internal Medicine
PROC: 05HY33Z Insertion of Infusion Device into Upper Vein, Percutaneous Approach (ICD-10-PCS; 2025-06-13)
PROC: B54MZZA Ultrasonography of Right Upper Extremity Veins, Guidance (ICD-10-PCS; 2025-06-13)
PROC: 4A023N7 Measurement of Cardiac Sampling and Pressure, Left Heart, Percutaneous Approach (ICD-10-PCS; principal; 2025-06-14)
PROC: B211YZZ Fluoroscopy of Multiple Coronary Arteries using Other Contrast (ICD-10-PCS; 2025-06-14)
PROC: B24BZZ4 Ultrasonography of Heart with Aorta, Transesophageal (ICD-10-PCS; 2025-06-15)
PROC: 5A2204Z Restoration of Cardiac Rhythm, Single (ICD-10-PCS; 2025-06-15)
DX: A41.9 Sepsis, unspecified organism (principal); I21.A1 Myocardial infarction type 2; R65.21 Severe sepsis with septic shock; N17.0 Acute kidney failure with tubular necrosis; J96.01 Acute respiratory failure with hypoxia; I50.23 Acute on chronic systolic (congestive) heart failure; I42.0 Dilated cardiomyopathy; N39.0 Urinary tract infection, site not specified; I11.0 Hypertensive heart disease with heart failure; D63.8 Anemia in other chronic diseases classified elsewhere; E11.9 Type 2 diabetes mellitus without complications; I34.0 Nonrheumatic mitral (valve) insufficiency; E66.9 Obesity, unspecified; I47.10 Supraventricular tachycardia, unspecified; I48.92 Unspecified atrial flutter; D68.69 Other thrombophilia; I48.0 Paroxysmal atrial fibrillation; E78.5 Hyperlipidemia, unspecified; Z79.899 Other long term (current) drug therapy; Z79.01 Long term (current) use of anticoagulants; Z83.3 Family history of diabetes mellitus; Z82.0 Family history of epilepsy and other diseases of the nervous system; Z85.46 Personal history of malignant neoplasm of prostate; Z85.038 Personal history of other malignant neoplasm of large intestine
CPT/HCPCS: 36415; 36569; 71045; 78452; 80048; 80053; 81001; 82962; 83605; 83735; 83880; 84100; 84443; 84484; 85025; 85610; 85730; 86850; 86900; 86901; 87040; 87045; 87077; 87081; 87086; 87186; 87427; 92960; 93005; 93017; 93306; 93312; 93458; 96365; 97110; 97116; 97163; 97530; G0378; J2250; J2470; J3480; Q9967

== ENCOUNTER → 2025-08-18 | Outpatient (CLI) | payer OTHER ==
[~2025-08-18] MED LIST changes: -GABA-1250 PO
== END | disposition home or self-care (01) ==
LOC: LAB 10:40
PROVIDERS: ATTEND Urology
DX: C61 Malignant neoplasm of prostate (principal)
CPT/HCPCS: 84153